=== PATIENT | male | born 1960 | race African-American/Black ===

== ENCOUNTER 2016-07-17 13:45 | Inpatient (IN) | payer MEDICAID, OTHER ==
[~2016-07-17] VITALS: Ht 167.6 cm; Wt 85.4 kg
[~2016-07-17 13:45] MED LIST: DIVA500T52 PO; MIRT15 PO; OMEP20 PO
[2016-07-17 15:14] LABS: BASOPHILS % (AUTO) 0.3 % (0.0-2.0); EOSINOPHILS % (AUTO) 0.8 % (1.0-6.0); HEMATOCRIT 41.5 % (41-53); LYMPHOCYTES % (AUTO) 18.5 % (22.0-44.0); MEAN CORPUSCULAR HEMOGLOBIN 26.9 pg (26.0-34.0); MEAN CORPUSCULAR HGB CONC 33.6 G/dL (31.0-37.0); MEAN CORPUSCULAR VOLUME 80 fL (80-100); MONOCYTES # (AUTO) 0.6 K/uL (0.1-1.0); MONOCYTES % (AUTO) 5.5 % (2.0-9.0); NEUTROPHILS % (AUTO) 74.9 % (40.0-70.0); PLATELET COUNT (AUTO) 282 K/uL (150-450); RED BLOOD CELL COUNT(AUTO) 5.18 MIL/uL (4.50-5.90); RED CELL DISTRIBUTION WIDTH 15.5 % (11.5-14.5); WHITE BLOOD COUNT (AUTO) 10.6 K/uL (4.5-11.0)
[2016-07-17 15:25] LABS: ANION GAP 5 mmol/L (8-16); CALCIUM, TOTAL 8.9 mg/dL (8.8-10.5); CARBON DIOXIDE 31 mmol/L (22-29); CHLORIDE 105 mmol/L (98-107); CREATININE 0.87 mg/dL (0.60-1.30); GLOMERULAR FILTR. RATE CALC > 60 mL/min (>60); SODIUM SERUM 141 mmol/L (136-145); UREA NITROGEN, BLOOD 9 mg/dL (7-18)
[2016-07-17 15:31] LABS: ALANINE AMINOTRANSFERASE 68 U/L (12-78); ALBUMIN 3.7 g/dL (3.4-5.0); ASPARTATE AMINOTRANSFERASE 22 U/L (15-37); BILIRUBIN,TOTAL 0.4 mg/dL (0.1-1.0); TOTAL PROTEIN, SERUM 7.3 g/dL (6.4-8.2)
[2016-07-17] MEDS ORDERED: MAGNESIUM HYDROXIDE SUSPENSION 30 ML UDCUP PO PRN (16:15)
[2016-07-17] MEDS ORDERED: ACETAMINOPHEN 325 MG TABLET PO PRN (16:15)
[2016-07-17] MEDS ORDERED: MAG HYDROX/AL HYDROX/SIMETH ES 30 ML SUSPENSION UDCUP PO PRN (16:15)
[2016-07-17] MEDS ORDERED: ZOLPIDEM TARTRATE 10 MG TABLET PO PRN (16:15)
[2016-07-18] MEDS ORDERED: IBUPROFEN 400 MG TABLET PO PRN (07:30)
[2016-07-18] MEDS ORDERED: ACETAMINOPHEN 325 MG TABLET PO PRN (07:30)
[2016-07-18 08:06] VITALS: BP 145/78
[2016-07-18] MEDS ORDERED: INFLUENZA VIRUS VACCINE QVS 2016-17 (3YR+)/PF 60 MCG/0.5 ML SYRINGE IM ONE (10:45)
[2016-07-18] MEDS: LORazepam 2 MG TABLET PO PRN (10:53)
[2016-07-18] MEDS: HALOPERIDOL 5 MG TABLET PO PRN (10:53)
[2016-07-18 16:15] VITALS: BP 142/74
[2016-07-19 06:25] LABS: HEMOGLOBIN A1C 5.6 % (4.5-6.2)
[2016-07-19] MEDS: OMEPRAZOLE 20 MG CAPSULE PO SCH (06:26)
[2016-07-19 06:32] LABS: THYROID STIMULATING HORMONE 1.78 uIU/mL (0.36-3.74)
[2016-07-19 07:14] LABS: CHOL/HDL RATIO 2.3 (4.2-7.3)
[2016-07-19] MEDS: OLANZapine 5 MG TABLET PO SCH ×3 (09:00→17:00)
[2016-07-19 16:24] VITALS: BP 131/86
[2016-07-20] MEDS: OMEPRAZOLE 20 MG CAPSULE PO SCH (06:34)
[2016-07-20] MEDS: OLANZapine 5 MG TABLET PO SCH ×2 (08:23→17:54)
[2016-07-20 08:31] LABS: APPEARANCE,URINE CLEAR (CLEAR); GLUCOSE, URINE (UA) NEGATIVE (NEGATIVE); KETONES,URINE NEGATIVE (NEGATIVE); LEUKOCYTE ESTERASE ,URINE NEGATIVE (NEGATIVE); OCCULT BLOOD,URINE NEGATIVE (NEGATIVE); PH,URINE 5.5 (5.0-8.0); PROTEIN,URINE NEGATIVE (NEGATIVE)
[2016-07-20 08:33] LABS: ADD UA MICROSCOPIC NO
[2016-07-20] MEDS: HALOPERIDOL 5 MG TABLET PO PRN (09:41)
[2016-07-20] MEDS: LORazepam 2 MG TABLET PO PRN (09:41)
[2016-07-20] MEDS: NYSTATIN 30 GM CREAM TP SCH (16:45)
[2016-07-21 01:48] VITALS: BP 129/89
[2016-07-21] MEDS: OMEPRAZOLE 20 MG CAPSULE PO SCH (06:21)
[2016-07-21 08:30] VITALS: BP 151/94
[2016-07-21] MEDS: OLANZapine 5 MG TABLET PO SCH (08:36)
[2016-07-21] MEDS: NYSTATIN 30 GM CREAM TP SCH (08:37)
[2016-07-21] MEDS ORDERED: OLAN5TAB2 PO (11:48)
[2016-07-21] MEDS ORDERED: NYST15CR2 TP (11:51)
== END 2016-07-21 14:48 | disposition home or self-care (01) | DRG 750 ==
LOC: EMS 13:46 → AHU 16:24 → 3EI 07-18 13:25
PROVIDERS: ADMIT Psychiatry & Neurology Psychiatry; ATTEND Psychiatry & Neurology Psychiatry
DX: F25.0 Schizoaffective disorder, bipolar type (principal); R45.851 Suicidal ideations; Z59.0 Homelessness; F14.10 Cocaine abuse, uncomplicated; F31.9 Bipolar disorder, unspecified; F41.9 Anxiety disorder, unspecified; F17.210 Nicotine dependence, cigarettes, uncomplicated; F15.10 Other stimulant abuse, uncomplicated; E78.5 Hyperlipidemia, unspecified; K21.9 Gastro-esophageal reflux disease without esophagitis; Z91.5 Personal history of self-harm; Z91.018 Allergy to other foods; Z79.899 Other long term (current) drug therapy; Z98.890 Other specified postprocedural states; Z71.6 Tobacco abuse counseling; Z88.8 Allergy status to other drugs, medicaments and biological substances; Z71.51 Drug abuse counseling and surveillance of drug abuser; Z28.21 Immunization not carried out because of patient refusal
CPT/HCPCS: 83036; 84443; 99285; G0480

== ENCOUNTER 2017-10-27 08:50 | Emergency (ER) | payer OTHER ==
[~2017-10-27] VITALS: Ht 165.1 cm; Wt 82.3 kg
[~2017-10-27 08:50] MED LIST changes: -DIVA500T52 PO; -MIRT15 PO; +NYST15CR2 TP; +OLAN5TAB2 PO
[2017-10-27 10:35] LABS: BASOPHILS % (AUTO) 0.8 % (0.0-2.0); EOSINOPHILS % (AUTO) 2.2 % (1.0-6.0); HEMATOCRIT 44.1 % (41-53); HEMOGLOBIN 15.6 g/dL (13.5-17.5); LYMPHOCYTES # (AUTO) 2.1 K/uL (1.0-4.8); LYMPHOCYTES % (AUTO) 27.4 % (22.0-44.0); MEAN CORPUSCULAR HEMOGLOBIN 27.5 pg (26.0-34.0); MEAN CORPUSCULAR HGB CONC 35.2 G/dL (31.0-37.0); MEAN CORPUSCULAR VOLUME 78 fL (80-100); MONOCYTES # (AUTO) 0.4 K/uL (0.1-1.0); MONOCYTES % (AUTO) 5.1 % (2.0-9.0); NEUTROPHILS # (AUTO) 4.8 K/uL (1.8-7.7); NEUTROPHILS % (AUTO) 64.5 % (40.0-70.0); PLATELET COUNT (AUTO) 331 K/uL (150-450); RED BLOOD CELL COUNT(AUTO) 5.66 MIL/uL (4.50-5.90); RED CELL DISTRIBUTION WIDTH 14.7 % (11.5-14.5)
[2017-10-27 10:44] LABS: ANION GAP 4 mmol/L (8-16); CARBON DIOXIDE 31 mmol/L (22-29); CHLORIDE 103 mmol/L (98-107); GLOMERULAR FILTR. RATE CALC > 60 mL/min (>60); GLUCOSE,RANDOM 90 mg/dL (70-110); SODIUM SERUM 138 mmol/L (136-145); UREA NITROGEN, BLOOD 12 mg/dL (7-18)
[2017-10-27 10:50] LABS: ALANINE AMINOTRANSFERASE 24 U/L (12-78); ALBUMIN 4.1 g/dL (3.4-5.0); ALKALINE PHOSPHATASE 115 U/L (46-116); ASPARTATE AMINOTRANSFERASE 17 U/L (15-37); BILIRUBIN,TOTAL 1.1 mg/dL (0.1-1.0)
[2017-10-27 10:56] LABS: AMPHET/METH SCREEN,URINE POSITIVE (NEGATIVE); BARBITURATE SCREEN, URINE NEGATIVE (NEGATIVE); BENZODIAZEPINES SCREEN,URINE NEGATIVE (NEGATIVE); CANNABINOID SCREEN,URINE NEGATIVE (NEGATIVE); COCAINE SCREEN,URINE NEGATIVE (NEGATIVE); METHADONE SCREEN, URINE NEGATIVE (NEGATIVE); OPIATE SCREEN,URINE NEGATIVE (NEGATIVE)
[2017-10-27 11:03] LABS: PHENCYCLIDINE SCREEN,URINE NEGATIVE (NEGATIVE)
[2017-10-27] MEDS: ACETAMINOPHEN 500 MG TABLET PO ONE ×2 (11:57→12:32)
[2017-10-27 14:43] VITALS: BP 123/64
== END 2017-10-27 14:55 ==
LOC: EMS 08:51
DX: R45.851 Suicidal ideations (principal); F15.10 Other stimulant abuse, uncomplicated; R03.0 Elevated blood-pressure reading, without diagnosis of hypertension; F31.9 Bipolar disorder, unspecified; F20.9 Schizophrenia, unspecified; F41.9 Anxiety disorder, unspecified; F17.210 Nicotine dependence, cigarettes, uncomplicated; F14.90 Cocaine use, unspecified, uncomplicated; Z59.0 Homelessness
CPT/HCPCS: 36415; 80053; 80307; 85025; 99285; G0480

== ENCOUNTER 2017-11-14 09:17 | Emergency (ER) | payer OTHER ==
[~2017-11-14] VITALS: Ht 165.1 cm; Wt 85.5 kg
[2017-11-14] MEDS ORDERED: ACETAMINOPHEN 500 MG TABLET PO ONE (10:00)
[2017-11-14 10:11] LABS: BASOPHILS % (AUTO) 0.9 % (0.0-2.0); EOSINOPHILS % (AUTO) 1.5 % (1.0-6.0); HEMATOCRIT 39.5 % (41-53); HEMOGLOBIN 13.9 g/dL (13.5-17.5); LYMPHOCYTES # (AUTO) 2.7 K/uL (1.0-4.8); LYMPHOCYTES % (AUTO) 31.6 % (22.0-44.0); MEAN CORPUSCULAR HEMOGLOBIN 27.5 pg (26.0-34.0); MEAN CORPUSCULAR HGB CONC 35.1 G/dL (31.0-37.0); MEAN CORPUSCULAR VOLUME 78 fL (80-100); MONOCYTES # (AUTO) 0.6 K/uL (0.1-1.0); MONOCYTES % (AUTO) 7.5 % (2.0-9.0); NEUTROPHILS # (AUTO) 4.9 K/uL (1.8-7.7); NEUTROPHILS % (AUTO) 58.5 % (40.0-70.0); PLATELET COUNT (AUTO) 345 K/uL (150-450); RED BLOOD CELL COUNT(AUTO) 5.04 MIL/uL (4.50-5.90); RED CELL DISTRIBUTION WIDTH 14.6 % (11.5-14.5)
[2017-11-14 10:21] LABS: ANION GAP 5 mmol/L (8-16); CALCIUM, TOTAL 8.5 mg/dL (8.8-10.5); CARBON DIOXIDE 33 mmol/L (22-29); CHLORIDE 104 mmol/L (98-107); CREATININE 1.01 mg/dL (0.60-1.30); GLOMERULAR FILTR. RATE CALC > 60 mL/min (>60); GLUCOSE,RANDOM 87 mg/dL (70-110); POTASSIUM 3.9 mmol/L (3.5-5.1); SODIUM SERUM 142 mmol/L (136-145); UREA NITROGEN, BLOOD 8 mg/dL (7-18)
[2017-11-14 10:27] LABS: ALANINE AMINOTRANSFERASE 32 U/L (12-78); ALBUMIN 3.8 g/dL (3.4-5.0); ALKALINE PHOSPHATASE 119 U/L (46-116); ASPARTATE AMINOTRANSFERASE 20 U/L (15-37); BILIRUBIN,TOTAL 0.5 mg/dL (0.1-1.0); TOTAL PROTEIN, SERUM 7.4 g/dL (6.4-8.2)
[2017-11-14 12:24] LABS: AMPHET/METH SCREEN,URINE POSITIVE (NEGATIVE); BARBITURATE SCREEN, URINE NEGATIVE (NEGATIVE); BENZODIAZEPINES SCREEN,URINE NEGATIVE (NEGATIVE); CANNABINOID SCREEN,URINE NEGATIVE (NEGATIVE); COCAINE SCREEN,URINE NEGATIVE (NEGATIVE); METHADONE SCREEN, URINE NEGATIVE (NEGATIVE); OPIATE SCREEN,URINE NEGATIVE (NEGATIVE)
[2017-11-14 12:25] LABS: PHENCYCLIDINE SCREEN,URINE NEGATIVE (NEGATIVE)
[2017-11-14 12:26] LABS: APPEARANCE,URINE CLEAR (CLEAR); BILIRUBIN,URINE NEGATIVE (NEGATIVE); GLUCOSE, URINE (UA) NEGATIVE (NEGATIVE); KETONES,URINE NEGATIVE (NEGATIVE); LEUKOCYTE ESTERASE ,URINE NEGATIVE (NEGATIVE); NITRATE,URINE NEGATIVE (NEGATIVE); OCCULT BLOOD,URINE NEGATIVE (NEGATIVE); PH,URINE 6.5 (5.0-8.0); PROTEIN,URINE NEGATIVE (NEGATIVE); UROBILINOGEN,URINE 0.2 mg/dL (<=1.0)
[2017-11-14] MEDS ORDERED: LORazepam 2 MG/ML VIAL IM ONE (12:45)
[2017-11-14] MEDS ORDERED: DiphenhydrAMINE HCL 50 MG/ML VIAL IM ONE (12:45)
[2017-11-14] MEDS ORDERED: HALOPERIDOL LACTATE 5 MG/ML VIAL IM ONE (12:45)
[2017-11-14 18:30] VITALS: BP 135/80
== END 2017-11-14 19:37 | disposition short-term general hospital (02) ==
LOC: EMS 09:19
DX: F31.9 Bipolar disorder, unspecified (principal); F29 Unspecified psychosis not due to a substance or known physiological condition; F20.9 Schizophrenia, unspecified; F15.10 Other stimulant abuse, uncomplicated; F14.90 Cocaine use, unspecified, uncomplicated; F17.210 Nicotine dependence, cigarettes, uncomplicated
CPT/HCPCS: 36415; 80053; 80307; 81003; 85025; 96372; 99285; G0480; J1200; J1630; J2060

== ENCOUNTER 2017-12-14 19:47 | Emergency (ER) | payer MEDICAID, OTHER ==
[~2017-12-14] VITALS: Ht 165.1 cm; Wt 81.0 kg
[~2017-12-14 19:47] MED LIST changes: +FLUO-191 PO; -NYST15CR2 TP; -OMEP20 PO
[2017-12-14 21:31] LABS: BASOPHILS % (AUTO) 1.3 % (0.0-2.0); EOSINOPHILS % (AUTO) 2.1 % (1.0-6.0); HEMATOCRIT 39.5 % (41-53); HEMOGLOBIN 13.8 g/dL (13.5-17.5); LYMPHOCYTES # (AUTO) 3.3 K/uL (1.0-4.8); LYMPHOCYTES % (AUTO) 27.9 % (22.0-44.0); MEAN CORPUSCULAR HEMOGLOBIN 27.4 pg (26.0-34.0); MEAN CORPUSCULAR VOLUME 78 fL (80-100); MONOCYTES # (AUTO) 0.9 K/uL (0.1-1.0); MONOCYTES % (AUTO) 7.4 % (2.0-9.0); NEUTROPHILS # (AUTO) 7.2 K/uL (1.8-7.7); NEUTROPHILS % (AUTO) 61.3 % (40.0-70.0); PLATELET COUNT (AUTO) 327 K/uL (150-450); RED BLOOD CELL COUNT(AUTO) 5.06 MIL/uL (4.50-5.90); RED CELL DISTRIBUTION WIDTH 15.3 % (11.5-14.5)
[2017-12-14 21:48] LABS: ANION GAP 6 mmol/L (8-16); CALCIUM, TOTAL 8.5 mg/dL (8.8-10.5); CARBON DIOXIDE 30 mmol/L (22-29); CHLORIDE 103 mmol/L (98-107); CREATININE 1.25 mg/dL (0.60-1.30); GLOMERULAR FILTR. RATE CALC > 60 mL/min (>60); GLUCOSE,RANDOM 94 mg/dL (70-110); POTASSIUM 3.8 mmol/L (3.5-5.1); SODIUM SERUM 139 mmol/L (136-145); UREA NITROGEN, BLOOD 13 mg/dL (7-18)
[2017-12-14 21:56] LABS: ALANINE AMINOTRANSFERASE 55 U/L (12-78); ALBUMIN 3.8 g/dL (3.4-5.0); ALKALINE PHOSPHATASE 140 U/L (46-116); ASPARTATE AMINOTRANSFERASE 24 U/L (15-37); BILIRUBIN,TOTAL 0.6 mg/dL (0.1-1.0); TOTAL PROTEIN, SERUM 7.6 g/dL (6.4-8.2)
[2017-12-15] MEDS ORDERED: LORazepam 2 MG TABLET PO PRN (01:30)
[2017-12-15] MEDS ORDERED: ACETAMINOPHEN 325 MG TABLET PO PRN (01:30)
[2017-12-15] MEDS ORDERED: ZOLPIDEM TARTRATE 10 MG TABLET PO PRN (01:30)
[2017-12-15] MEDS ORDERED: MAGNESIUM HYDROXIDE SUSPENSION 30 ML UDCUP PO PRN (01:30)
[2017-12-15] MEDS ORDERED: MAG HYDROX/AL HYDROX/SIMETH ES 30 ML SUSPENSION UDCUP PO PRN (01:30)
[2017-12-15] MEDS ORDERED: HALOPERIDOL 5 MG TABLET PO PRN (01:30)
[2017-12-15 19:10] LABS: AMPHET/METH SCREEN,URINE POSITIVE (NEGATIVE); BARBITURATE SCREEN, URINE NEGATIVE (NEGATIVE); BENZODIAZEPINES SCREEN,URINE NEGATIVE (NEGATIVE); CANNABINOID SCREEN,URINE NEGATIVE (NEGATIVE); COCAINE SCREEN,URINE NEGATIVE (NEGATIVE); METHADONE SCREEN, URINE NEGATIVE (NEGATIVE); OPIATE SCREEN,URINE NEGATIVE (NEGATIVE)
[2017-12-15 19:12] LABS: PHENCYCLIDINE SCREEN,URINE NEGATIVE (NEGATIVE)
[2017-12-15 21:00] VITALS: BP 121/89
== END 2017-12-15 21:44 | disposition home or self-care (01) ==
LOC: EMS 19:48
DX: F31.9 Bipolar disorder, unspecified (principal); F29 Unspecified psychosis not due to a substance or known physiological condition; F41.9 Anxiety disorder, unspecified; F20.9 Schizophrenia, unspecified; F17.210 Nicotine dependence, cigarettes, uncomplicated; F12.90 Cannabis use, unspecified, uncomplicated; Z91.018 Allergy to other foods
CPT/HCPCS: 36415; 80053; 80307; 85025; 99284; G0480

== ENCOUNTER 2018-01-08 05:29 | Emergency (ER) | payer OTHER ==
[~2018-01-08] VITALS: Ht 165.1 cm; Wt 81.0 kg
[2018-01-08] MEDS ORDERED: POVIDONE-IODINE 10% 15 ML SOLUTION UD TP ONE (06:30)
[2018-01-08 07:02] VITALS: BP 126/84
== END 2018-01-08 07:05 | disposition home or self-care (01) ==
LOC: EMS 05:31
DX: L84 Corns and callosities (principal); M79.671 Pain in right foot; M79.672 Pain in left foot; F17.210 Nicotine dependence, cigarettes, uncomplicated; F12.90 Cannabis use, unspecified, uncomplicated; Z91.018 Allergy to other foods
CPT/HCPCS: 99283

== ENCOUNTER 2018-03-01 20:47 | Inpatient (IN) | payer MEDICAID, OTHER ==
[~2018-03-01] VITALS: Ht 165.1 cm; Wt 77.6 kg
[2018-03-01 21:21] LABS: EOSINOPHILS % (AUTO) 1.6 % (1.0-6.0); HEMATOCRIT 39.9 % (41-53); HEMOGLOBIN 13.7 g/dL (13.5-17.5); LYMPHOCYTES # (AUTO) 2.9 K/uL (1.0-4.8); LYMPHOCYTES % (AUTO) 27.7 % (22.0-44.0); MEAN CORPUSCULAR HGB CONC 34.2 G/dL (31.0-37.0); MEAN CORPUSCULAR VOLUME 79 fL (80-100); MONOCYTES # (AUTO) 0.5 K/uL (0.1-1.0); MONOCYTES % (AUTO) 4.4 % (2.0-9.0); NEUTROPHILS # (AUTO) 6.8 K/uL (1.8-7.7); NEUTROPHILS % (AUTO) 65.3 % (40.0-70.0); PLATELET COUNT (AUTO) 306 K/uL (150-450); RED BLOOD CELL COUNT(AUTO) 5.07 MIL/uL (4.50-5.90); RED CELL DISTRIBUTION WIDTH 14.4 % (11.5-14.5)
[2018-03-01 21:30] LABS: ANION GAP 5 mmol/L (8-16); CARBON DIOXIDE 30 mmol/L (22-29); CHLORIDE 105 mmol/L (98-107); CREATININE 1.11 mg/dL (0.60-1.30); GLOMERULAR FILTR. RATE CALC > 60 mL/min (>60); GLUCOSE,RANDOM 101 mg/dL (70-110); POTASSIUM 4.3 mmol/L (3.5-5.1); SODIUM SERUM 140 mmol/L (136-145); UREA NITROGEN, BLOOD 12 mg/dL (7-18)
[2018-03-01 21:37] LABS: ALANINE AMINOTRANSFERASE 17 U/L (12-78); ALBUMIN 3.2 g/dL (3.4-5.0); ALKALINE PHOSPHATASE 102 U/L (46-116); ASPARTATE AMINOTRANSFERASE 29 U/L (15-37); BILIRUBIN,TOTAL 0.3 mg/dL (0.1-1.0); TOTAL PROTEIN, SERUM 6.6 g/dL (6.4-8.2)
[2018-03-02 04:50] VITALS: BP 116/70
[2018-03-02 08:36] VITALS: BP 117/69
[2018-03-02 09:18] LABS: HEMOGLOBIN A1C 5.6 % (4.5-6.2)
[2018-03-02 09:39] LABS: FREE T4 (FREE THYROXINE) 0.89 ng/dL (0.76-1.46); THYROID STIMULATING HORMONE 1.18 uIU/mL (0.36-3.74)
[2018-03-02] MEDS ORDERED: PROMETHAZINE HCL 25 MG TABLET PO PRN (13:00)
[2018-03-02] MEDS ORDERED: MAGNESIUM HYDROXIDE SUSPENSION 30 ML UDCUP PO PRN (13:00)
[2018-03-02] MEDS ORDERED: GuaiFENesin/D-METHORPHAN [SUGAR-FREE] 200-20MG/10 ML SYRUP UDCUP PO PRN (13:00)
[2018-03-02] MEDS ORDERED: MAG HYDROX/AL HYDROX/SIMETH ES 30 ML SUSPENSION UDCUP PO PRN (13:00)
[2018-03-02] MEDS ORDERED: TUBERCULIN, PURIFIED PROTEIN DERIVATIVE 5 TU/0.1 ML SYG ID ONE (13:00)
[2018-03-02] MEDS ORDERED: ACETAMINOPHEN 325 MG TABLET PO PRN (13:00)
[2018-03-02] MEDS ORDERED: LOPERAMIDE HCL 2 MG CAPSULE PO PRN (13:00)
[2018-03-02] MEDS ORDERED: HydrOXYzine PAMOATE 50 MG CAPSULE PO PRN (13:00)
[2018-03-02 16:20] VITALS: BP 112/84
[2018-03-02] MEDS: THIAMINE HCL 100 MG TABLET PO SCH (17:39)
[2018-03-02] MEDS: LORazepam 2 MG TABLET PO PRN (18:04)
[2018-03-03 08:43] VITALS: BP 109/61
[2018-03-03] MEDS ORDERED: OLANZapine 5 MG RAPDIS TABLET PO SCH (09:00)
[2018-03-03] MEDS ORDERED: OLANZapine 10 MG RAPDIS TABLET PO SCH (09:00)
[2018-03-03] MEDS: FOLIC ACID 1 MG TABLET PO SCH (09:49)
[2018-03-03] MEDS: FLUoxetine HCL 20 MG CAPSULE PO SCH (09:49)
[2018-03-03] MEDS: MULTIVITAMINS WITH MINERALS, THERAPEUTIC TABLET PO SCH (09:49)
[2018-03-03] MEDS: NALTREXONE HCL 50 MG TABLET PO SCH (09:50)
[2018-03-03] MEDS: THIAMINE HCL 100 MG TABLET PO SCH ×2 (09:50→16:56)
[2018-03-03] MEDS: OLANZapine 10 MG RAPDIS TABLET PO SCH (20:39)
[2018-03-04 05:38] VITALS: BP 121/68
[2018-03-04] MEDS: NALTREXONE HCL 50 MG TABLET PO SCH ×2 (09:00→09:08)
[2018-03-04] MEDS: THIAMINE HCL 100 MG TABLET PO SCH ×3 (09:00→16:25)
[2018-03-04] MEDS: MULTIVITAMINS WITH MINERALS, THERAPEUTIC TABLET PO SCH ×2 (09:00→09:08)
[2018-03-04] MEDS: FLUoxetine HCL 20 MG CAPSULE PO SCH ×2 (09:00→09:08)
[2018-03-04] MEDS: FOLIC ACID 1 MG TABLET PO SCH ×2 (09:00→09:08)
[2018-03-04 16:15] VITALS: BP 120/74
[2018-03-04] MEDS ORDERED: LORazepam 2 MG/ML VIAL IM ONE (17:30)
[2018-03-04] MEDS ORDERED: HALOPERIDOL LACTATE 5 MG/ML VIAL IM ONE (17:30)
[2018-03-04] MEDS ORDERED: DiphenhydrAMINE HCL 50 MG/ML VIAL IM ONE (17:30)
[2018-03-04] MEDS: OLANZapine 10 MG RAPDIS TABLET PO SCH (21:00)
[2018-03-05 06:39] VITALS: BP 112/65
[2018-03-05 08:03] VITALS: BP 114/62
[2018-03-05] MEDS: NALTREXONE HCL 50 MG TABLET PO SCH (09:00)
[2018-03-05] MEDS: FLUoxetine HCL 20 MG CAPSULE PO SCH (09:00)
[2018-03-05] MEDS: MULTIVITAMINS WITH MINERALS, THERAPEUTIC TABLET PO SCH (09:00)
[2018-03-05] MEDS: FOLIC ACID 1 MG TABLET PO SCH (09:00)
[2018-03-05] MEDS: THIAMINE HCL 100 MG TABLET PO SCH ×2 (09:00→17:00)
[2018-03-05] MEDS: DIVALPROEX SODIUM 500 MG ER TABLET PO SCH (20:17)
[2018-03-05] MEDS: OLANZapine 10 MG RAPDIS TABLET PO SCH (20:17)
[2018-03-06] MEDS: FOLIC ACID 1 MG TABLET PO SCH (08:16)
[2018-03-06] MEDS: THIAMINE HCL 100 MG TABLET PO SCH ×2 (08:16→16:34)
[2018-03-06] MEDS: NALTREXONE HCL 50 MG TABLET PO SCH (08:16)
[2018-03-06] MEDS: MULTIVITAMINS WITH MINERALS, THERAPEUTIC TABLET PO SCH (08:16)
[2018-03-06 16:00] VITALS: BP 112/70
[2018-03-06] MEDS: LORazepam 2 MG TABLET PO PRN (16:34)
[2018-03-06] MEDS: NICOTINE 21 MG/24 HOUR PATCH TD SCH (16:54)
[2018-03-06] MEDS: OLANZapine 10 MG RAPDIS TABLET PO SCH (20:29)
[2018-03-06] MEDS: DIVALPROEX SODIUM 500 MG ER TABLET PO SCH (20:29)
[2018-03-06] MEDS: ZOLPIDEM TARTRATE 10 MG TABLET PO PRN (20:30)
[2018-03-07] MEDS: NALTREXONE HCL 50 MG TABLET PO SCH (08:20)
[2018-03-07] MEDS: MULTIVITAMINS WITH MINERALS, THERAPEUTIC TABLET PO SCH (08:20)
[2018-03-07] MEDS: FOLIC ACID 1 MG TABLET PO SCH (08:20)
[2018-03-07] MEDS: THIAMINE HCL 100 MG TABLET PO SCH ×2 (08:20→16:22)
[2018-03-07] MEDS: NICOTINE 21 MG/24 HOUR PATCH TD SCH (08:21)
[2018-03-07] MEDS: LORazepam 2 MG TABLET PO PRN (16:22)
[2018-03-07] MEDS: OLANZapine 5 MG RAPDIS TABLET PO PRN (16:36)
[2018-03-07 17:04] VITALS: BP 124/79
[2018-03-07] MEDS: ZOLPIDEM TARTRATE 10 MG TABLET PO PRN (20:31)
[2018-03-07] MEDS: DIVALPROEX SODIUM 500 MG ER TABLET PO SCH (20:31)
[2018-03-07] MEDS: OLANZapine 10 MG RAPDIS TABLET PO SCH (20:31)
[2018-03-08] MEDS: FOLIC ACID 1 MG TABLET PO SCH (08:34)
[2018-03-08] MEDS: NICOTINE 21 MG/24 HOUR PATCH TD SCH (08:35)
[2018-03-08] MEDS: THIAMINE HCL 100 MG TABLET PO SCH ×2 (08:35→16:34)
[2018-03-08] MEDS: MULTIVITAMINS WITH MINERALS, THERAPEUTIC TABLET PO SCH (08:35)
[2018-03-08] MEDS: NALTREXONE HCL 50 MG TABLET PO SCH (08:35)
[2018-03-08 16:00] VITALS: BP 122/88
[2018-03-08] MEDS: OLANZapine 5 MG RAPDIS TABLET PO PRN (16:34)
[2018-03-08] MEDS: LORazepam 2 MG TABLET PO PRN (16:34)
[2018-03-08] MEDS: DIVALPROEX SODIUM 500 MG ER TABLET PO SCH ×2 (20:50→21:13)
[2018-03-08] MEDS: OLANZapine 10 MG RAPDIS TABLET PO SCH ×2 (20:50→21:13)
[2018-03-09 08:05] VITALS: BP 119/62
[2018-03-09] MEDS: NICOTINE 21 MG/24 HOUR PATCH TD SCH (09:00)
[2018-03-09] MEDS: MULTIVITAMINS WITH MINERALS, THERAPEUTIC TABLET PO SCH (09:00)
[2018-03-09] MEDS: NALTREXONE HCL 50 MG TABLET PO SCH (09:00)
[2018-03-09] MEDS: CLOTRIMAZOLE 1% 10 ML SOLUTION TP SCH ×2 (09:00→16:38)
[2018-03-09] MEDS: THIAMINE HCL 100 MG TABLET PO SCH ×2 (09:00→16:35)
[2018-03-09] MEDS: FOLIC ACID 1 MG TABLET PO SCH (09:00)
[2018-03-09 16:04] VITALS: BP 129/76
[2018-03-09] MEDS: LORazepam 2 MG TABLET PO PRN (16:36)
[2018-03-09] MEDS: OLANZapine 5 MG RAPDIS TABLET PO PRN (16:37)
[2018-03-10 03:12] VITALS: BP 123/68
[2018-03-10 08:04] VITALS: BP 132/66
[2018-03-10] MEDS: NICOTINE 21 MG/24 HOUR PATCH TD SCH (08:29)
[2018-03-10] MEDS: NALTREXONE HCL 50 MG TABLET PO SCH (08:29)
[2018-03-10] MEDS: FOLIC ACID 1 MG TABLET PO SCH (08:29)
[2018-03-10] MEDS: MULTIVITAMINS WITH MINERALS, THERAPEUTIC TABLET PO SCH (08:29)
[2018-03-10] MEDS: THIAMINE HCL 100 MG TABLET PO SCH (08:29)
[2018-03-10] MEDS: CLOTRIMAZOLE 1% 10 ML SOLUTION TP SCH (08:30)
[2018-03-10] MEDS ORDERED: OLAN10TA6 PO (11:41)
[2018-03-10] MEDS ORDERED: NALT50TA6 PO (11:41)
[2018-03-10] MEDS ORDERED: DIVA500T52 PO (11:41)
== END 2018-03-10 12:10 | disposition home or self-care (01) | DRG 750 ==
LOC: EMS 20:51 → B2S 03-02 02:30 → B3A 03-04 17:35
PROVIDERS: ADMIT Psychiatry & Neurology Psychiatry; ATTEND Psychiatry & Neurology Psychiatry
DX: F20.0 Paranoid schizophrenia (principal); R45.851 Suicidal ideations; Z59.0 Homelessness; B35.3 Tinea pedis; F12.90 Cannabis use, unspecified, uncomplicated; F15.10 Other stimulant abuse, uncomplicated; F17.210 Nicotine dependence, cigarettes, uncomplicated; J44.9 Chronic obstructive pulmonary disease, unspecified; K21.9 Gastro-esophageal reflux disease without esophagitis; F31.9 Bipolar disorder, unspecified; Z91.14 Patient's other noncompliance with medication regimen; Z91.018 Allergy to other foods; Z79.899 Other long term (current) drug therapy; Z72.89 Other problems related to lifestyle; Z71.41 Alcohol abuse counseling and surveillance of alcoholic; Z71.6 Tobacco abuse counseling; Z71.51 Drug abuse counseling and surveillance of drug abuser
CPT/HCPCS: 83036; 84439; 84443; 99285; G0480; J1200; J1630; J2060

== ENCOUNTER 2018-03-19 19:53 | Emergency (ER) | payer MEDICAID, OTHER ==
[~2018-03-19] VITALS: Ht 162.6 cm; Wt 81.8 kg
[~2018-03-19 19:53] MED LIST changes: +DIVA500T52 PO; -FLUO-191 PO; +NALT50TA PO; +NALT50TA6 PO; +OLAN10TA22 PO; +OLAN10TA6 PO; -OLAN5TAB2 PO
[2018-03-19 22:33] VITALS: BP 148/88
== END 2018-03-19 22:34 | disposition home or self-care (01) ==
LOC: EMS 19:54
DX: M21.42 Flat foot [pes planus] (acquired), left foot (principal); M21.41 Flat foot [pes planus] (acquired), right foot; B35.3 Tinea pedis; M72.2 Plantar fascial fibromatosis; F41.9 Anxiety disorder, unspecified; F31.9 Bipolar disorder, unspecified; F20.9 Schizophrenia, unspecified; F17.210 Nicotine dependence, cigarettes, uncomplicated; Z91.018 Allergy to other foods
CPT/HCPCS: 99283

== ENCOUNTER 2018-03-20 07:49 | Inpatient (IN) | payer MEDICAID, OTHER ==
[~2018-03-20] VITALS: Ht 165.1 cm; Wt 76.7 kg
[~2018-03-20 07:49] MED LIST changes: -NALT50TA PO; -OLAN10TA22 PO
[2018-03-20 08:17] LABS: BASOPHILS % (AUTO) 0.9 % (0.0-2.0); EOSINOPHILS % (AUTO) 0.9 % (1.0-6.0); HEMATOCRIT 40.8 % (41-53); HEMOGLOBIN 14.3 g/dL (13.5-17.5); LYMPHOCYTES # (AUTO) 2.4 K/uL (1.0-4.8); LYMPHOCYTES % (AUTO) 23.3 % (22.0-44.0); MEAN CORPUSCULAR HEMOGLOBIN 27.1 pg (26.0-34.0); MEAN CORPUSCULAR HGB CONC 35.1 G/dL (31.0-37.0); MEAN CORPUSCULAR VOLUME 77 fL (80-100); MONOCYTES # (AUTO) 0.8 K/uL (0.1-1.0); MONOCYTES % (AUTO) 7.7 % (2.0-9.0); NEUTROPHILS # (AUTO) 6.9 K/uL (1.8-7.7); NEUTROPHILS % (AUTO) 67.2 % (40.0-70.0); PLATELET COUNT (AUTO) 313 K/uL (150-450); RED BLOOD CELL COUNT(AUTO) 5.28 MIL/uL (4.50-5.90); RED CELL DISTRIBUTION WIDTH 14.5 % (11.5-14.5)
[2018-03-20 08:29] LABS: ANION GAP 8 mmol/L (8-16); CALCIUM, TOTAL 9.3 mg/dL (8.8-10.5); CARBON DIOXIDE 30 mmol/L (22-29); CHLORIDE 103 mmol/L (98-107); CREATININE 1.15 mg/dL (0.60-1.30); GLOMERULAR FILTR. RATE CALC > 60 mL/min (>60); GLUCOSE,RANDOM 101 mg/dL (70-110); SODIUM SERUM 141 mmol/L (136-145); UREA NITROGEN, BLOOD 16 mg/dL (7-18)
[2018-03-20] MEDS ORDERED: OLANZapine 5 MG RAPDIS TABLET PO PRN (08:30)
[2018-03-20] MEDS ORDERED: LORazepam 2 MG TABLET PO PRN (08:30)
[2018-03-20] MEDS ORDERED: ZOLPIDEM TARTRATE 10 MG TABLET PO PRN (08:30)
[2018-03-20 08:35] LABS: ALANINE AMINOTRANSFERASE 30 U/L (12-78); ALBUMIN 3.9 g/dL (3.4-5.0); ALKALINE PHOSPHATASE 106 U/L (46-116); ASPARTATE AMINOTRANSFERASE 34 U/L (15-37); BILIRUBIN,TOTAL 0.8 mg/dL (0.1-1.0); TOTAL PROTEIN, SERUM 7.7 g/dL (6.4-8.2); VALPROIC ACID 25 mcg/mL (50-100)
[2018-03-20 13:52] VITALS: BP 145/94
[2018-03-20] MEDS: NALTREXONE HCL 50 MG TABLET PO SCH (14:06)
[2018-03-20] MEDS: NICOTINE 21 MG/24 HOUR PATCH TD SCH (14:59)
[2018-03-20 16:28] VITALS: BP 115/75
[2018-03-20 16:30] VITALS: BP 112/75
[2018-03-20] MEDS: TERBINAFINE HCL 1% 30 GM CREAM TP SCH (16:45)
[2018-03-20] MEDS: DIVALPROEX SODIUM 500 MG ER TABLET PO SCH (20:26)
[2018-03-20] MEDS: OLANZapine 10 MG RAPDIS TABLET PO SCH (20:26)
[2018-03-21 00:40] VITALS: BP 135/83
[2018-03-21] MEDS ORDERED: MAGNESIUM HYDROXIDE SUSPENSION 30 ML UDCUP PO PRN (07:00)
[2018-03-21] MEDS ORDERED: IBUPROFEN 600 MG TABLET PO PRN (07:00)
[2018-03-21] MEDS ORDERED: ALBUTEROL SULFATE HFA 90 MCG/PUFF 8 GM INHALER IH PRN (07:00)
[2018-03-21] MEDS ORDERED: ACETAMINOPHEN 325 MG TABLET PO PRN (07:00)
[2018-03-21] MEDS ORDERED: CloNIDine HCL 0.1 MG TABLET PO PRN (07:00)
[2018-03-21] MEDS ORDERED: BACITRACIN 28.4 GM OINTMENT TP PRN (07:00)
[2018-03-21] MEDS ORDERED: PETROLATUM,WHITE 71 GM JELLY TP PRN (07:00)
[2018-03-21] MEDS ORDERED: ONDANSETRON HCL 4 MG TABLET PO PRN (07:00)
[2018-03-21] MEDS ORDERED: LOPERAMIDE HCL 2 MG CAPSULE PO PRN (07:00)
[2018-03-21] MEDS ORDERED: BENZOCAINE/MENTHOL LOZENGE MM PRN (07:00)
[2018-03-21] MEDS ORDERED: MAG HYDROX/AL HYDROX/SIMETH ES 30 ML SUSPENSION UDCUP PO PRN (07:00)
[2018-03-21 08:01] LABS: CHOL/HDL RATIO 2.7 (4.2-7.3)
[2018-03-21 08:10] VITALS: BP 128/76
[2018-03-21] MEDS: NALTREXONE HCL 50 MG TABLET PO SCH (09:18)
[2018-03-21] MEDS: OMEPRAZOLE 20 MG CAPSULE PO SCH (09:18)
[2018-03-21] MEDS: DOCUSATE SODIUM 100 MG CAPSULE PO SCH (09:18)
[2018-03-21] MEDS: NICOTINE 21 MG/24 HOUR PATCH TD SCH (09:19)
[2018-03-21] MEDS: TERBINAFINE HCL 1% 30 GM CREAM TP SCH ×2 (09:19→17:28)
[2018-03-21 16:00] VITALS: BP 132/80
[2018-03-21 16:10] VITALS: BP 132/80
[2018-03-21] MEDS: DIVALPROEX SODIUM 500 MG ER TABLET PO SCH (20:55)
[2018-03-21] MEDS: OLANZapine 10 MG RAPDIS TABLET PO SCH (20:55)
[2018-03-22 08:17] VITALS: BP 126/78
[2018-03-22] MEDS: NICOTINE 21 MG/24 HOUR PATCH TD SCH (09:00)
[2018-03-22] MEDS: NALTREXONE HCL 50 MG TABLET PO SCH (09:00)
[2018-03-22] MEDS: OMEPRAZOLE 20 MG CAPSULE PO SCH (09:00)
[2018-03-22] MEDS: TERBINAFINE HCL 1% 30 GM CREAM TP SCH ×2 (09:00→16:16)
[2018-03-22] MEDS: DOCUSATE SODIUM 100 MG CAPSULE PO SCH (09:00)
[2018-03-22] MEDS ORDERED: HydrOXYzine PAMOATE 50 MG CAPSULE PO PRN (11:45)
[2018-03-22] MEDS ORDERED: GuaiFENesin/D-METHORPHAN [SUGAR-FREE] 200-20MG/10 ML SYRUP UDCUP PO PRN (11:45)
[2018-03-22] MEDS: THIAMINE HCL 100 MG TABLET PO SCH (16:16)
[2018-03-22 16:30] VITALS: BP 124/82
[2018-03-22] MEDS: OLANZapine 10 MG RAPDIS TABLET PO SCH (20:39)
[2018-03-22] MEDS: DIVALPROEX SODIUM 500 MG ER TABLET PO SCH (20:39)
[2018-03-23 01:01] VITALS: BP 133/82
[2018-03-23] MEDS: NALTREXONE HCL 50 MG TABLET PO SCH (08:46)
[2018-03-23] MEDS: OMEPRAZOLE 20 MG CAPSULE PO SCH (08:46)
[2018-03-23] MEDS: DOCUSATE SODIUM 100 MG CAPSULE PO SCH (08:46)
[2018-03-23] MEDS: FOLIC ACID 1 MG TABLET PO SCH (08:46)
[2018-03-23] MEDS: TERBINAFINE HCL 1% 30 GM CREAM TP SCH ×2 (08:47→16:31)
[2018-03-23] MEDS: NICOTINE 21 MG/24 HOUR PATCH TD SCH (08:47)
[2018-03-23] MEDS: THIAMINE HCL 100 MG TABLET PO SCH ×2 (08:47→16:30)
[2018-03-23] MEDS: MULTIVITAMINS WITH MINERALS, THERAPEUTIC TABLET PO SCH (08:47)
[2018-03-23] MEDS: OLANZapine 10 MG RAPDIS TABLET PO SCH (20:08)
[2018-03-23] MEDS: DIVALPROEX SODIUM 500 MG ER TABLET PO SCH (20:08)
[2018-03-24] MEDS: FOLIC ACID 1 MG TABLET PO SCH (09:00)
[2018-03-24] MEDS: NALTREXONE HCL 50 MG TABLET PO SCH (09:00)
[2018-03-24] MEDS: MULTIVITAMINS WITH MINERALS, THERAPEUTIC TABLET PO SCH (09:00)
[2018-03-24] MEDS: NICOTINE 21 MG/24 HOUR PATCH TD SCH (09:00)
[2018-03-24] MEDS: THIAMINE HCL 100 MG TABLET PO SCH ×2 (09:00→16:52)
[2018-03-24] MEDS: OMEPRAZOLE 20 MG CAPSULE PO SCH (09:00)
[2018-03-24] MEDS: DOCUSATE SODIUM 100 MG CAPSULE PO SCH (09:00)
[2018-03-24] MEDS: TERBINAFINE HCL 1% 30 GM CREAM TP SCH ×2 (09:00→16:53)
[2018-03-24 16:00] VITALS: BP 138/78
[2018-03-24] MEDS: DIVALPROEX SODIUM 500 MG ER TABLET PO SCH (20:17)
[2018-03-24] MEDS: OLANZapine 10 MG RAPDIS TABLET PO SCH (20:17)
[2018-03-25] MEDS: FOLIC ACID 1 MG TABLET PO SCH (09:00)
[2018-03-25] MEDS: TERBINAFINE HCL 1% 30 GM CREAM TP SCH ×2 (09:00→16:17)
[2018-03-25] MEDS: THIAMINE HCL 100 MG TABLET PO SCH ×2 (09:00→16:17)
[2018-03-25] MEDS: DOCUSATE SODIUM 100 MG CAPSULE PO SCH (09:00)
[2018-03-25] MEDS: NALTREXONE HCL 50 MG TABLET PO SCH (09:00)
[2018-03-25] MEDS: OMEPRAZOLE 20 MG CAPSULE PO SCH (09:00)
[2018-03-25] MEDS: MULTIVITAMINS WITH MINERALS, THERAPEUTIC TABLET PO SCH (09:00)
[2018-03-25] MEDS: NICOTINE 21 MG/24 HOUR PATCH TD SCH (09:42)
[2018-03-25] MEDS ORDERED: DIVA500T52 PO (15:16)
[2018-03-25] MEDS ORDERED: OLAN10TA22 PO (15:16)
[2018-03-25] MEDS ORDERED: NALT50TA PO (15:16)
[2018-03-25] MEDS ORDERED: OMEP20 PO (16:22)
[2018-03-25] MEDS ORDERED: DSS100 PO (16:22)
[2018-03-25] MEDS ORDERED: MULT-1239 PO (16:23)
[2018-03-25] MEDS ORDERED: TERB30CR22 TP (16:28)
== END 2018-03-25 17:04 | disposition home or self-care (01) | DRG 750 ==
LOC: EMS 07:50 → B2S 09:11 → B3A 09:12
PROVIDERS: ADMIT Psychiatry & Neurology Psychiatry; ATTEND Psychiatry & Neurology Psychiatry
DX: F20.0 Paranoid schizophrenia (principal); R45.851 Suicidal ideations; F15.20 Other stimulant dependence, uncomplicated; F12.20 Cannabis dependence, uncomplicated; B35.3 Tinea pedis; F14.90 Cocaine use, unspecified, uncomplicated; J44.9 Chronic obstructive pulmonary disease, unspecified; K21.9 Gastro-esophageal reflux disease without esophagitis; F41.9 Anxiety disorder, unspecified; G47.00 Insomnia, unspecified; F17.210 Nicotine dependence, cigarettes, uncomplicated; F39 Unspecified mood [affective] disorder; Z59.0 Homelessness; Z56.0 Unemployment, unspecified; Z71.6 Tobacco abuse counseling; Z71.51 Drug abuse counseling and surveillance of drug abuser; Z71.41 Alcohol abuse counseling and surveillance of alcoholic; Z91.14 Patient's other noncompliance with medication regimen; Z72.89 Other problems related to lifestyle
CPT/HCPCS: 87081; 99285; 99406; G0480

== ENCOUNTER 2018-05-02 20:28 | Inpatient (IN) | payer MEDICAID, OTHER ==
[~2018-05-02] VITALS: Ht 167.6 cm; Wt 78.3 kg
[~2018-05-02 20:28] MED LIST changes: +DIVA-76 PO; -DIVA500T52 PO; +NALT50TA PO; +OLAN10TA22 PO; -OLAN10TA6 PO; +RISP2 PO
[2018-05-02 21:28] LABS: BASOPHILS % (AUTO) 1.2 % (0.0-2.0); EOSINOPHILS % (AUTO) 1.7 % (1.0-6.0); HEMOGLOBIN 13.3 g/dL (13.5-17.5); LYMPHOCYTES # (AUTO) 3.2 K/uL (1.0-4.8); LYMPHOCYTES % (AUTO) 35.3 % (22.0-44.0); MEAN CORPUSCULAR HEMOGLOBIN 27.5 pg (26.0-34.0); MEAN CORPUSCULAR VOLUME 79 fL (80-100); MONOCYTES # (AUTO) 0.6 K/uL (0.1-1.0); NEUTROPHILS # (AUTO) 4.9 K/uL (1.8-7.7); NEUTROPHILS % (AUTO) 54.8 % (40.0-70.0); PLATELET COUNT (AUTO) 321 K/uL (150-450); RED BLOOD CELL COUNT(AUTO) 4.82 MIL/uL (4.50-5.90); RED CELL DISTRIBUTION WIDTH 14.9 % (11.5-14.5)
[2018-05-02 21:49] LABS: ANION GAP 2 mmol/L (8-16); CALCIUM, TOTAL 8.4 mg/dL (8.8-10.5); CARBON DIOXIDE 33 mmol/L (22-29); CHLORIDE 104 mmol/L (98-107); CREATININE 1.23 mg/dL (0.60-1.30); GLOMERULAR FILTR. RATE CALC > 60 mL/min (>60); GLUCOSE,RANDOM 95 mg/dL (70-110); POTASSIUM 3.9 mmol/L (3.5-5.1); SODIUM SERUM 139 mmol/L (136-145); UREA NITROGEN, BLOOD 12 mg/dL (7-18)
[2018-05-02 21:50] LABS: AMPHET/METH SCREEN,URINE POSITIVE (NEGATIVE); BARBITURATE SCREEN, URINE NEGATIVE (NEGATIVE); BENZODIAZEPINES SCREEN,URINE NEGATIVE (NEGATIVE); CANNABINOID SCREEN,URINE NEGATIVE (NEGATIVE); COCAINE SCREEN,URINE NEGATIVE (NEGATIVE); METHADONE SCREEN, URINE NEGATIVE (NEGATIVE); OPIATE SCREEN,URINE NEGATIVE (NEGATIVE); PHENCYCLIDINE SCREEN,URINE NEGATIVE (NEGATIVE)
[2018-05-02 21:54] LABS: ALANINE AMINOTRANSFERASE 25 U/L (12-78); ALBUMIN 3.3 g/dL (3.4-5.0); ALKALINE PHOSPHATASE 99 U/L (46-116); ASPARTATE AMINOTRANSFERASE 15 U/L (15-37); BILIRUBIN,TOTAL 0.3 mg/dL (0.1-1.0); TOTAL PROTEIN, SERUM 6.8 g/dL (6.4-8.2)
[2018-05-03] MEDS ORDERED: ZOLPIDEM TARTRATE 5 MG TABLET PO PRN (03:30)
[2018-05-03] MEDS ORDERED: LORazepam 2 MG TABLET PO PRN (03:30)
[2018-05-03] MEDS ORDERED: ChlorproMAZINE HCL 100 MG TABLET PO PRN (03:30)
[2018-05-03] MEDS ORDERED: MAGNESIUM HYDROXIDE SUSPENSION 30 ML UDCUP PO PRN (11:45)
[2018-05-03] MEDS ORDERED: RisperiDONE MICROSPHERES 25 MG/2 ML SYRINGE IM ONE (11:45)
[2018-05-03] MEDS ORDERED: GuaiFENesin/D-METHORPHAN [SUGAR-FREE] 200-20MG/10 ML SYRUP UDCUP PO PRN (11:45)
[2018-05-03] MEDS ORDERED: RisperiDONE 1 MG TABLET PO PRN (11:45)
[2018-05-03] MEDS ORDERED: MAG HYDROX/AL HYDROX/SIMETH ES 30 ML SUSPENSION UDCUP PO PRN (11:45)
[2018-05-03] MEDS ORDERED: PROMETHAZINE HCL 25 MG TABLET PO PRN (11:45)
[2018-05-03] MEDS ORDERED: ACETAMINOPHEN 325 MG TABLET PO PRN (11:45)
[2018-05-03] MEDS ORDERED: LOPERAMIDE HCL 2 MG CAPSULE PO PRN (11:45)
[2018-05-03] MEDS ORDERED: HydrOXYzine PAMOATE 50 MG CAPSULE PO PRN (11:45)
[2018-05-03] MEDS: THIAMINE HCL 100 MG TABLET PO SCH (19:34)
[2018-05-03 19:42] VITALS: BP 135/82
[2018-05-03] MEDS: DIVALPROEX SODIUM 500 MG ER TABLET PO SCH (20:21)
[2018-05-03] MEDS: RisperiDONE 3 MG TABLET PO SCH (20:21)
[2018-05-04] MEDS: FOLIC ACID 1 MG TABLET PO SCH (09:00)
[2018-05-04] MEDS: MULTIVITAMINS WITH MINERALS, THERAPEUTIC TABLET PO SCH (09:00)
[2018-05-04] MEDS: NALTREXONE HCL 50 MG TABLET PO SCH (09:00)
[2018-05-04] MEDS: THIAMINE HCL 100 MG TABLET PO SCH ×2 (09:00→17:00)
[2018-05-04 16:00] VITALS: BP 106/79
[2018-05-04] MEDS ORDERED: BENZOCAINE/MENTHOL LOZENGE MM PRN (19:15)
[2018-05-04] MEDS ORDERED: ACETAMINOPHEN 325 MG TABLET PO PRN (19:15)
[2018-05-04] MEDS ORDERED: BACITRACIN 28.4 GM OINTMENT TP PRN (19:15)
[2018-05-04] MEDS ORDERED: MAG HYDROX/AL HYDROX/SIMETH ES 30 ML SUSPENSION UDCUP PO PRN (19:15)
[2018-05-04] MEDS ORDERED: MAGNESIUM HYDROXIDE SUSPENSION 30 ML UDCUP PO PRN (19:15)
[2018-05-04] MEDS ORDERED: CloNIDine HCL 0.1 MG TABLET PO PRN (19:15)
[2018-05-04] MEDS ORDERED: IBUPROFEN 600 MG TABLET PO PRN (19:15)
[2018-05-04] MEDS ORDERED: DOCUSATE SODIUM 100 MG CAPSULE PO PRN (19:15)
[2018-05-04] MEDS ORDERED: OMEPRAZOLE 20 MG CAPSULE PO PRN (19:15)
[2018-05-04] MEDS ORDERED: ONDANSETRON HCL 4 MG TABLET PO PRN (19:15)
[2018-05-04] MEDS ORDERED: PETROLATUM,WHITE 71 GM JELLY TP PRN (19:15)
[2018-05-04] MEDS ORDERED: LOPERAMIDE HCL 2 MG CAPSULE PO PRN (19:15)
[2018-05-04] MEDS ORDERED: ALBUTEROL SULFATE HFA 90 MCG/PUFF 8 GM INHALER IH PRN (19:15)
[2018-05-04] MEDS: DIVALPROEX SODIUM 500 MG ER TABLET PO SCH (20:52)
[2018-05-04] MEDS: RisperiDONE 3 MG TABLET PO SCH (20:52)
[2018-05-05] MEDS: FOLIC ACID 1 MG TABLET PO SCH (09:00)
[2018-05-05] MEDS: THIAMINE HCL 100 MG TABLET PO SCH ×2 (09:00→17:19)
[2018-05-05] MEDS: MULTIVITAMINS WITH MINERALS, THERAPEUTIC TABLET PO SCH (09:00)
[2018-05-05] MEDS: NALTREXONE HCL 50 MG TABLET PO SCH (09:00)
[2018-05-05 16:00] VITALS: BP 121/84
[2018-05-05] MEDS: RisperiDONE 3 MG TABLET PO SCH (20:18)
[2018-05-06] MEDS: THIAMINE HCL 100 MG TABLET PO SCH ×2 (08:50→16:31)
[2018-05-06] MEDS: MULTIVITAMINS WITH MINERALS, THERAPEUTIC TABLET PO SCH (08:50)
[2018-05-06] MEDS: FOLIC ACID 1 MG TABLET PO SCH (08:50)
[2018-05-06] MEDS: NALTREXONE HCL 50 MG TABLET PO SCH (08:50)
[2018-05-06 10:20] VITALS: BP 117/75
[2018-05-06 16:47] VITALS: BP 131/80
[2018-05-06] MEDS ORDERED: RisperiDONE 3 MG TABLET PO SCH (21:00)
[2018-05-07] MEDS: FOLIC ACID 1 MG TABLET PO SCH (08:23)
[2018-05-07] MEDS: NALTREXONE HCL 50 MG TABLET PO SCH (08:23)
[2018-05-07] MEDS: THIAMINE HCL 100 MG TABLET PO SCH (08:23)
[2018-05-07] MEDS: MULTIVITAMINS WITH MINERALS, THERAPEUTIC TABLET PO SCH (08:23)
[2018-05-07] MEDS ORDERED: RISP3 PO (11:48)
[2018-05-07] MEDS ORDERED: NALT50TA PO (11:48)
[2018-05-18] MEDS ORDERED: RisperiDONE MICROSPHERES 25 MG/2 ML SYRINGE IM SCH (09:00)
== END 2018-05-07 14:40 | disposition home or self-care (01) | DRG 750 ==
LOC: EMS 20:29 → 3EC 05-03 18:36
PROVIDERS: ADMIT Psychiatry & Neurology Psychiatry; ATTEND Psychiatry & Neurology Psychiatry
DX: F25.9 Schizoaffective disorder, unspecified (principal); R45.851 Suicidal ideations; R45.850 Homicidal ideations; F12.90 Cannabis use, unspecified, uncomplicated; F15.10 Other stimulant abuse, uncomplicated; F17.210 Nicotine dependence, cigarettes, uncomplicated; F31.9 Bipolar disorder, unspecified; F60.0 Paranoid personality disorder; G47.00 Insomnia, unspecified; J44.9 Chronic obstructive pulmonary disease, unspecified; F14.90 Cocaine use, unspecified, uncomplicated; K21.9 Gastro-esophageal reflux disease without esophagitis; Z59.0 Homelessness; Z65.3 Problems related to other legal circumstances; Z91.19 Patient's noncompliance with other medical treatment and regimen; Z79.899 Other long term (current) drug therapy; Z91.018 Allergy to other foods; Z56.0 Unemployment, unspecified; Z72.89 Other problems related to lifestyle; Z71.6 Tobacco abuse counseling; Z71.51 Drug abuse counseling and surveillance of drug abuser; Z71.41 Alcohol abuse counseling and surveillance of alcoholic
CPT/HCPCS: 87081; G0480; J2794

== ENCOUNTER 2018-05-14 18:06 | Inpatient (IN) | payer MEDICAID, OTHER ==
[~2018-05-14] VITALS: Ht 165.1 cm; Wt 85.5 kg
[~2018-05-14 18:06] MED LIST changes: -DIVA-76 PO; -NALT50TA6 PO; -OLAN10TA22 PO; -RISP2 PO; +RISP3 PO
[2018-05-14 19:05] LABS: AMPHET/METH SCREEN,URINE NEGATIVE (NEGATIVE); BARBITURATE SCREEN, URINE NEGATIVE (NEGATIVE); BENZODIAZEPINES SCREEN,URINE NEGATIVE (NEGATIVE); CANNABINOID SCREEN,URINE NEGATIVE (NEGATIVE); COCAINE SCREEN,URINE NEGATIVE (NEGATIVE); METHADONE SCREEN, URINE NEGATIVE (NEGATIVE); OPIATE SCREEN,URINE NEGATIVE (NEGATIVE); PHENCYCLIDINE SCREEN,URINE NEGATIVE (NEGATIVE)
[2018-05-14] MEDS ORDERED: ZOLPIDEM TARTRATE 10 MG TABLET PO PRN (19:30)
[2018-05-14] MEDS ORDERED: HALOPERIDOL 5 MG TABLET PO PRN (19:30)
[2018-05-14 20:24] LABS: BASOPHILS % (AUTO) 0.7 % (0.0-2.0); HEMATOCRIT 37.6 % (41-53); HEMOGLOBIN 12.7 g/dL (13.5-17.5); LYMPHOCYTES # (AUTO) 3.2 K/uL (1.0-4.8); LYMPHOCYTES % (AUTO) 41.3 % (22.0-44.0); MEAN CORPUSCULAR HEMOGLOBIN 26.7 pg (26.0-34.0); MEAN CORPUSCULAR HGB CONC 33.8 G/dL (31.0-37.0); MEAN CORPUSCULAR VOLUME 79 fL (80-100); MONOCYTES # (AUTO) 0.3 K/uL (0.1-1.0); MONOCYTES % (AUTO) 3.8 % (2.0-9.0); NEUTROPHILS # (AUTO) 4.1 K/uL (1.8-7.7); NEUTROPHILS % (AUTO) 52.2 % (40.0-70.0); PLATELET COUNT (AUTO) 290 K/uL (150-450); RED BLOOD CELL COUNT(AUTO) 4.75 MIL/uL (4.50-5.90); RED CELL DISTRIBUTION WIDTH 15.3 % (11.5-14.5)
[2018-05-14] MEDS ORDERED: ALBUTEROL SULFATE HFA 90 MCG/PUFF 8 GM INHALER IH PRN (20:30)
[2018-05-14] MEDS ORDERED: LOPERAMIDE HCL 2 MG CAPSULE PO PRN (20:30)
[2018-05-14] MEDS ORDERED: ACETAMINOPHEN 325 MG TABLET PO PRN (20:30)
[2018-05-14] MEDS ORDERED: MAG HYDROX/AL HYDROX/SIMETH ES 30 ML SUSPENSION UDCUP PO PRN (20:30)
[2018-05-14] MEDS ORDERED: BACITRACIN 28.4 GM OINTMENT TP PRN (20:30)
[2018-05-14] MEDS ORDERED: BENZOCAINE/MENTHOL LOZENGE MM PRN (20:30)
[2018-05-14] MEDS ORDERED: PETROLATUM,WHITE 71 GM JELLY TP PRN (20:30)
[2018-05-14] MEDS ORDERED: IBUPROFEN 600 MG TABLET PO PRN (20:30)
[2018-05-14] MEDS ORDERED: CloNIDine HCL 0.1 MG TABLET PO PRN (20:30)
[2018-05-14] MEDS ORDERED: ONDANSETRON HCL 4 MG TABLET PO PRN (20:30)
[2018-05-14] MEDS ORDERED: MAGNESIUM HYDROXIDE SUSPENSION 30 ML UDCUP PO PRN (20:30)
[2018-05-14 20:34] LABS: ANION GAP 8 mmol/L (8-16); CALCIUM, TOTAL 8.9 mg/dL (8.8-10.5); CARBON DIOXIDE 33 mmol/L (22-29); CHLORIDE 108 mmol/L (98-107); CREATININE 1.06 mg/dL (0.60-1.30); GLOMERULAR FILTR. RATE CALC > 60 mL/min (>60); GLUCOSE,RANDOM 115 mg/dL (70-110); POTASSIUM 3.6 mmol/L (3.5-5.1); SODIUM SERUM 149 mmol/L (136-145); UREA NITROGEN, BLOOD 10 mg/dL (7-18)
[2018-05-14 20:39] LABS: ALANINE AMINOTRANSFERASE 25 U/L (12-78); ALBUMIN 3.2 g/dL (3.4-5.0); ALKALINE PHOSPHATASE 105 U/L (46-116); ASPARTATE AMINOTRANSFERASE 15 U/L (15-37); BILIRUBIN,TOTAL 0.4 mg/dL (0.1-1.0); TOTAL PROTEIN, SERUM 6.6 g/dL (6.4-8.2)
[2018-05-14] MEDS: RisperiDONE 2 MG TABLET PO SCH (20:43)
[2018-05-14 21:38] VITALS: BP 105/63
[2018-05-15] MEDS: OMEPRAZOLE 20 MG CAPSULE PO SCH (09:00)
[2018-05-15] MEDS: DOCUSATE SODIUM 100 MG CAPSULE PO SCH (09:00)
[2018-05-15 16:23] VITALS: BP 140/82
[2018-05-15] MEDS: LORazepam 2 MG TABLET PO PRN (17:58)
[2018-05-15] MEDS: RisperiDONE 2 MG TABLET PO SCH (20:26)
[2018-05-16 05:12] VITALS: BP 129/77
[2018-05-16 08:15] VITALS: BP 138/76
[2018-05-16] MEDS: DOCUSATE SODIUM 100 MG CAPSULE PO SCH (09:00)
[2018-05-16] MEDS: OMEPRAZOLE 20 MG CAPSULE PO SCH (09:00)
[2018-05-16 16:11] VITALS: BP 133/70
[2018-05-16] MEDS: LORazepam 2 MG TABLET PO PRN (17:04)
[2018-05-16] MEDS: RisperiDONE 3 MG TABLET PO SCH (21:12)
[2018-05-17] MEDS: OMEPRAZOLE 20 MG CAPSULE PO SCH (09:00)
[2018-05-17] MEDS: DOCUSATE SODIUM 100 MG CAPSULE PO SCH (09:00)
[2018-05-17] MEDS: LORazepam 2 MG TABLET PO PRN (17:11)
[2018-05-17] MEDS: RisperiDONE 3 MG TABLET PO SCH (20:43)
[2018-05-18] MEDS: DOCUSATE SODIUM 100 MG CAPSULE PO SCH (09:00)
[2018-05-18] MEDS: OMEPRAZOLE 20 MG CAPSULE PO SCH (09:00)
[2018-05-18 16:10] VITALS: BP 122/82
[2018-05-18] MEDS: LORazepam 2 MG TABLET PO PRN (16:30)
[2018-05-18] MEDS: RisperiDONE 3 MG TABLET PO SCH (20:53)
[2018-05-19] MEDS: DOCUSATE SODIUM 100 MG CAPSULE PO SCH (08:24)
[2018-05-19] MEDS: OMEPRAZOLE 20 MG CAPSULE PO SCH (08:24)
[2018-05-19 08:25] VITALS: BP 110/71
[2018-05-19 16:09] VITALS: BP 132/64
[2018-05-19] MEDS: LORazepam 2 MG TABLET PO PRN (19:32)
[2018-05-19] MEDS ORDERED: RisperiDONE 4 MG TABLET PO SCH (21:00)
[2018-05-20 08:12] VITALS: BP 131/68
[2018-05-20] MEDS: OMEPRAZOLE 20 MG CAPSULE PO SCH (08:34)
[2018-05-20] MEDS: DOCUSATE SODIUM 100 MG CAPSULE PO SCH (08:34)
[2018-05-20 09:20] LABS: APPEARANCE,URINE CLOUDY (CLEAR); BILIRUBIN,URINE NEGATIVE (NEGATIVE); GLUCOSE, URINE (UA) NEGATIVE (NEGATIVE); KETONES,URINE NEGATIVE (NEGATIVE); LEUKOCYTE ESTERASE ,URINE NEGATIVE (NEGATIVE); NITRATE,URINE NEGATIVE (NEGATIVE); OCCULT BLOOD,URINE NEGATIVE (NEGATIVE); PROTEIN,URINE NEGATIVE (NEGATIVE); UROBILINOGEN,URINE 0.2 mg/dL (<=1.0)
[2018-05-20] MEDS ORDERED: DSS100 PO (14:23)
[2018-05-20] MEDS ORDERED: RISP4 PO (14:23)
[2018-05-20] MEDS ORDERED: OMEP20 PO (14:24)
[2018-05-20 16:32] VITALS: BP 111/82
== END 2018-05-20 18:22 | disposition home or self-care (01) | DRG 750 ==
LOC: EMS 18:09 → B3A 19:30
PROVIDERS: ADMIT Psychiatry & Neurology Psychiatry; ATTEND Psychiatry & Neurology Psychiatry
DX: F25.0 Schizoaffective disorder, bipolar type (principal); R45.851 Suicidal ideations; F12.90 Cannabis use, unspecified, uncomplicated; F15.10 Other stimulant abuse, uncomplicated; F41.9 Anxiety disorder, unspecified; G47.00 Insomnia, unspecified; I10 Essential (primary) hypertension; F17.210 Nicotine dependence, cigarettes, uncomplicated; J44.9 Chronic obstructive pulmonary disease, unspecified; K21.9 Gastro-esophageal reflux disease without esophagitis; Z79.899 Other long term (current) drug therapy; Z72.89 Other problems related to lifestyle
CPT/HCPCS: 87081; G0480

== ENCOUNTER 2018-06-27 06:20 | Inpatient (IN) | payer MEDICAID, OTHER ==
[~2018-06-27] VITALS: Ht 165.1 cm; Wt 78.0 kg
[~2018-06-27 06:20] MED LIST changes: +DSS100 PO; -NALT50TA PO; +OMEP20 PO; -RISP3 PO; +RISP4 PO
[2018-06-27 07:38] LABS: BASOPHILS % (AUTO) 0.9 % (0.0-2.0); EOSINOPHILS % (AUTO) 0.7 % (1.0-6.0); HEMATOCRIT 43.2 % (41-53); HEMOGLOBIN 14.6 g/dL (13.5-17.5); LYMPHOCYTES # (AUTO) 2.8 K/uL (1.0-4.8); LYMPHOCYTES % (AUTO) 26.6 % (22.0-44.0); MEAN CORPUSCULAR HEMOGLOBIN 26.8 pg (26.0-34.0); MEAN CORPUSCULAR HGB CONC 33.9 G/dL (31.0-37.0); MEAN CORPUSCULAR VOLUME 79 fL (80-100); MONOCYTES # (AUTO) 0.7 K/uL (0.1-1.0); MONOCYTES % (AUTO) 6.5 % (2.0-9.0); NEUTROPHILS # (AUTO) 6.8 K/uL (1.8-7.7); NEUTROPHILS % (AUTO) 65.3 % (40.0-70.0); PLATELET COUNT (AUTO) 310 K/uL (150-450); RED BLOOD CELL COUNT(AUTO) 5.46 MIL/uL (4.50-5.90); RED CELL DISTRIBUTION WIDTH 15.2 % (11.5-14.5)
[2018-06-27 07:56] LABS: ANION GAP 7 mmol/L (8-16); CALCIUM, TOTAL 9.1 mg/dL (8.8-10.5); CARBON DIOXIDE 31 mmol/L (22-29); CHLORIDE 103 mmol/L (98-107); CREATININE 1.16 mg/dL (0.60-1.30); GLOMERULAR FILTR. RATE CALC > 60 mL/min (>60); GLUCOSE,RANDOM 88 mg/dL (70-110); POTASSIUM 3.9 mmol/L (3.5-5.1); SODIUM SERUM 141 mmol/L (136-145); UREA NITROGEN, BLOOD 11 mg/dL (7-18)
[2018-06-27 08:01] LABS: ALANINE AMINOTRANSFERASE 17 U/L (12-78); ALBUMIN 3.8 g/dL (3.4-5.0); ALKALINE PHOSPHATASE 104 U/L (46-116); ASPARTATE AMINOTRANSFERASE 13 U/L (15-37); BILIRUBIN,TOTAL 0.6 mg/dL (0.1-1.0); TOTAL PROTEIN, SERUM 7.5 g/dL (6.4-8.2)
[2018-06-27] MEDS ORDERED: ZOLPIDEM TARTRATE 10 MG TABLET PO PRN (08:30)
[2018-06-27] MEDS ORDERED: HALOPERIDOL 5 MG TABLET PO PRN (08:30)
[2018-06-27] MEDS ORDERED: ACETAMINOPHEN 325 MG TABLET PO PRN ×2 (08:45→10:15)
[2018-06-27] MEDS ORDERED: IBUPROFEN 400 MG TABLET PO PRN ×2 (08:45→10:15)
[2018-06-27] MEDS ORDERED: MAG HYDROX/AL HYDROX/SIMETH ES 30 ML SUSPENSION UDCUP PO PRN (10:15)
[2018-06-27] MEDS ORDERED: PETROLATUM,WHITE 71 GM JELLY TP PRN (10:15)
[2018-06-27] MEDS ORDERED: DOCUSATE SODIUM 100 MG CAPSULE PO PRN (10:15)
[2018-06-27] MEDS ORDERED: MAGNESIUM HYDROXIDE SUSPENSION 30 ML UDCUP PO PRN (10:15)
[2018-06-27] MEDS ORDERED: LOPERAMIDE HCL 2 MG CAPSULE PO PRN (10:15)
[2018-06-27] MEDS ORDERED: GuaiFENesin/D-METHORPHAN [SUGAR-FREE] 200-20MG/10 ML SYRUP UDCUP PO PRN (10:15)
[2018-06-27 11:58] VITALS: BP 136/85
[2018-06-27] MEDS: NICOTINE 21 MG/24 HOUR PATCH TD SCH (13:38)
[2018-06-27 17:29] VITALS: BP 129/84
[2018-06-27] MEDS: RisperiDONE 4 MG TABLET PO SCH (20:38)
[2018-06-28 04:18] VITALS: BP 123/87
[2018-06-28] MEDS: NICOTINE 21 MG/24 HOUR PATCH TD SCH ×2 (08:46→09:00)
[2018-06-28] MEDS: SERTRALINE HCL 50 MG TABLET PO SCH (08:46)
[2018-06-28 16:30] VITALS: BP 119/81
[2018-06-28] MEDS: RisperiDONE 4 MG TABLET PO SCH (20:21)
[2018-06-29 02:02] VITALS: BP 117/83
[2018-06-29 08:43] VITALS: BP 140/85
[2018-06-29] MEDS: NICOTINE 21 MG/24 HOUR PATCH TD SCH (09:00)
[2018-06-29] MEDS: RisperiDONE 2 MG TABLET PO SCH (09:19)
[2018-06-29] MEDS: SERTRALINE HCL 50 MG TABLET PO SCH (09:19)
[2018-06-29 16:57] VITALS: BP 124/78
[2018-06-29] MEDS: RisperiDONE 4 MG TABLET PO SCH (20:06)
[2018-06-30 02:22] VITALS: BP 118/88
[2018-06-30] MEDS: NICOTINE 21 MG/24 HOUR PATCH TD SCH (09:00)
[2018-06-30] MEDS: RisperiDONE 2 MG TABLET PO SCH (09:23)
[2018-06-30] MEDS: SERTRALINE HCL 50 MG TABLET PO SCH (09:23)
[2018-06-30 16:08] VITALS: BP 133/96
[2018-06-30] MEDS: RisperiDONE 4 MG TABLET PO SCH (21:07)
[2018-07-01] MEDS: RisperiDONE 2 MG TABLET PO SCH (10:10)
[2018-07-01] MEDS: NICOTINE 21 MG/24 HOUR PATCH TD SCH (10:10)
[2018-07-01] MEDS: SERTRALINE HCL 50 MG TABLET PO SCH (10:10)
[2018-07-01 17:46] VITALS: BP 124/77
[2018-07-01] MEDS: RisperiDONE 4 MG TABLET PO SCH (19:59)
[2018-07-02] MEDS: SERTRALINE HCL 50 MG TABLET PO SCH (09:00)
[2018-07-02] MEDS: RisperiDONE 2 MG TABLET PO SCH (09:00)
[2018-07-02] MEDS: NICOTINE 21 MG/24 HOUR PATCH TD SCH (09:00)
[2018-07-02] MEDS ORDERED: LORazepam 2 MG/ML VIAL ONE (14:29)
[2018-07-02] MEDS ORDERED: DiphenhydrAMINE HCL 50 MG/ML VIAL ONE (14:29)
[2018-07-02] MEDS ORDERED: HALOPERIDOL LACTATE 5 MG/ML VIAL ONE (14:29)
[2018-07-02] MEDS ORDERED: LORazepam 2 MG/ML VIAL IM ONE (15:15)
[2018-07-02] MEDS ORDERED: DiphenhydrAMINE HCL 50 MG/ML VIAL IM ONE (15:15)
[2018-07-02] MEDS ORDERED: HALOPERIDOL LACTATE 5 MG/ML VIAL IM ONE (15:15)
[2018-07-02 16:16] VITALS: BP 126/78
[2018-07-02] MEDS: RisperiDONE 4 MG TABLET PO SCH (20:20)
[2018-07-03] MEDS: NICOTINE 21 MG/24 HOUR PATCH TD SCH (09:00)
[2018-07-03] MEDS: RisperiDONE 2 MG TABLET PO SCH (09:00)
[2018-07-03] MEDS: SERTRALINE HCL 50 MG TABLET PO SCH (09:00)
[2018-07-03] MEDS: RisperiDONE 4 MG TABLET PO SCH (20:49)
[2018-07-03] MEDS: LORazepam 2 MG TABLET PO PRN (20:49)
[2018-07-04] MEDS: RisperiDONE 2 MG TABLET PO SCH (09:00)
[2018-07-04] MEDS: NICOTINE 21 MG/24 HOUR PATCH TD SCH (09:00)
[2018-07-04] MEDS: SERTRALINE HCL 50 MG TABLET PO SCH (09:00)
[2018-07-04 16:00] VITALS: BP 119/69
[2018-07-04] MEDS: LORazepam 2 MG TABLET PO PRN (17:49)
[2018-07-04] MEDS: RisperiDONE 4 MG TABLET PO SCH (20:11)
[2018-07-05] MEDS: NICOTINE 21 MG/24 HOUR PATCH TD SCH (08:43)
[2018-07-05] MEDS: SERTRALINE HCL 50 MG TABLET PO SCH (08:43)
[2018-07-05] MEDS: RisperiDONE 2 MG TABLET PO SCH (08:43)
[2018-07-05] MEDS: RisperiDONE 4 MG TABLET PO SCH (20:13)
[2018-07-06] MEDS: RisperiDONE 2 MG TABLET PO SCH ×2 (08:34→09:00)
[2018-07-06] MEDS: SERTRALINE HCL 50 MG TABLET PO SCH ×2 (08:34→09:00)
[2018-07-06] MEDS: NICOTINE 21 MG/24 HOUR PATCH TD SCH (08:34)
[2018-07-06 16:39] VITALS: BP 127/74
[2018-07-06] MEDS: RisperiDONE 4 MG TABLET PO SCH (20:31)
[2018-07-07] MEDS: SERTRALINE HCL 50 MG TABLET PO SCH (08:40)
[2018-07-07] MEDS: RisperiDONE 2 MG TABLET PO SCH (08:40)
[2018-07-07] MEDS: NICOTINE 21 MG/24 HOUR PATCH TD SCH (08:57)
[2018-07-07 16:00] VITALS: BP 103/64
[2018-07-07] MEDS: RisperiDONE 4 MG TABLET PO SCH (21:02)
[2018-07-08 06:36] VITALS: BP 122/78
[2018-07-08] MEDS: NICOTINE 21 MG/24 HOUR PATCH TD SCH (09:00)
[2018-07-08] MEDS: RisperiDONE 2 MG TABLET PO SCH (09:39)
[2018-07-08] MEDS: SERTRALINE HCL 50 MG TABLET PO SCH (09:39)
[2018-07-08 16:00] VITALS: BP 109/70
[2018-07-08] MEDS: RisperiDONE 4 MG TABLET PO SCH (20:19)
[2018-07-09] MEDS: SERTRALINE HCL 50 MG TABLET PO SCH (08:38)
[2018-07-09] MEDS: RisperiDONE 2 MG TABLET PO SCH (08:38)
[2018-07-09] MEDS: NICOTINE 21 MG/24 HOUR PATCH TD SCH (08:41)
[2018-07-09 16:08] VITALS: BP 136/73
[2018-07-09] MEDS: RisperiDONE 4 MG TABLET PO SCH (20:03)
[2018-07-10] MEDS: SERTRALINE HCL 50 MG TABLET PO SCH (08:38)
[2018-07-10] MEDS: RisperiDONE 2 MG TABLET PO SCH (08:38)
[2018-07-10] MEDS: NICOTINE 21 MG/24 HOUR PATCH TD SCH (08:38)
[2018-07-10 17:54] VITALS: BP 116/65
[2018-07-10] MEDS: RisperiDONE 4 MG TABLET PO SCH (20:57)
[2018-07-11 00:25] VITALS: BP 118/72
[2018-07-11] MEDS: NICOTINE 21 MG/24 HOUR PATCH TD SCH (08:33)
[2018-07-11] MEDS: RisperiDONE 2 MG TABLET PO SCH (08:33)
[2018-07-11] MEDS: SERTRALINE HCL 50 MG TABLET PO SCH (08:33)
[2018-07-11 16:22] VITALS: BP 114/69
[2018-07-11] MEDS: RisperiDONE 4 MG TABLET PO SCH (20:19)
[2018-07-12] MEDS: SERTRALINE HCL 50 MG TABLET PO SCH (08:24)
[2018-07-12] MEDS: RisperiDONE 2 MG TABLET PO SCH (08:24)
[2018-07-12] MEDS: NICOTINE 21 MG/24 HOUR PATCH TD SCH (08:24)
[2018-07-12 16:18] VITALS: BP 137/68
[2018-07-12] MEDS: RisperiDONE 4 MG TABLET PO SCH (20:28)
[2018-07-13] MEDS: RisperiDONE 2 MG TABLET PO SCH (08:23)
[2018-07-13] MEDS: SERTRALINE HCL 50 MG TABLET PO SCH (08:23)
[2018-07-13] MEDS ORDERED: RISP1TAB89 PO (12:29)
[2018-07-13] MEDS ORDERED: RISP2TAB76 PO (12:29)
[2018-07-13] MEDS ORDERED: SERT25TA PO (12:30)
== END 2018-07-13 16:45 | disposition home or self-care (01) | DRG 750 ==
LOC: EMS 06:21 → B2S 09:48 → B3A 07-02 15:44
PROVIDERS: ADMIT Psychiatry & Neurology Psychiatry; ATTEND Psychiatry & Neurology Psychiatry
DX: F25.0 Schizoaffective disorder, bipolar type (principal); R45.851 Suicidal ideations; Z59.0 Homelessness; F41.9 Anxiety disorder, unspecified; J44.9 Chronic obstructive pulmonary disease, unspecified; K21.9 Gastro-esophageal reflux disease without esophagitis; F17.200 Nicotine dependence, unspecified, uncomplicated; F12.90 Cannabis use, unspecified, uncomplicated; F10.10 Alcohol abuse, uncomplicated; F14.90 Cocaine use, unspecified, uncomplicated; Z60.2 Problems related to living alone; F19.10 Other psychoactive substance abuse, uncomplicated; F32.9 Major depressive disorder, single episode, unspecified; Z79.899 Other long term (current) drug therapy; Z91.5 Personal history of self-harm; Z71.6 Tobacco abuse counseling; Z71.41 Alcohol abuse counseling and surveillance of alcoholic; Z91.018 Allergy to other foods
CPT/HCPCS: G0480; J1200; J1630; J2060

== ENCOUNTER 2018-07-28 22:42 | Inpatient (IN) | payer MEDICAID ==
[~2018-07-28] VITALS: Ht 165.1 cm; Wt 77.8 kg
[~2018-07-28 22:42] MED LIST changes: -DSS100 PO; -OMEP20 PO; +RISP1TAB89 PO; +RISP2TAB76 PO; -RISP4 PO; +SERT25TA PO
[2018-07-29] MEDS ORDERED: DiphenhydrAMINE HCL 50 MG/ML VIAL IM ONE (01:15)
[2018-07-29] MEDS ORDERED: LORazepam 2 MG/ML VIAL IM ONE (01:15)
[2018-07-29] MEDS ORDERED: HALOPERIDOL LACTATE 5 MG/ML VIAL IM ONE (01:15)
[2018-07-29] MEDS ORDERED: HALOPERIDOL 5 MG TABLET PO PRN (01:45)
[2018-07-29] MEDS ORDERED: ZOLPIDEM TARTRATE 10 MG TABLET PO PRN (01:45)
[2018-07-29] MEDS ORDERED: LORazepam 2 MG TABLET PO PRN (01:45)
[2018-07-29] MEDS ORDERED: ALBUTEROL SULFATE HFA 90 MCG/PUFF 8 GM INHALER IH PRN (09:30)
[2018-07-29] MEDS ORDERED: LOPERAMIDE HCL 2 MG CAPSULE PO PRN (09:30)
[2018-07-29] MEDS ORDERED: NICOTINE 14 MG/24 HOUR PATCH TD PRN (09:30)
[2018-07-29] MEDS ORDERED: ONDANSETRON HCL 4 MG TABLET PO PRN (09:30)
[2018-07-29] MEDS ORDERED: CloNIDine HCL 0.1 MG TABLET PO PRN (09:30)
[2018-07-29] MEDS ORDERED: PETROLATUM,WHITE 71 GM JELLY TP PRN (09:30)
[2018-07-29] MEDS ORDERED: DOCUSATE SODIUM 100 MG CAPSULE PO PRN (09:30)
[2018-07-29] MEDS ORDERED: IBUPROFEN 400 MG TABLET PO PRN (09:30)
[2018-07-29] MEDS ORDERED: MAG HYDROX/AL HYDROX/SIMETH ES 30 ML SUSPENSION UDCUP PO PRN (09:30)
[2018-07-29] MEDS ORDERED: MAGNESIUM HYDROXIDE SUSPENSION 30 ML UDCUP PO PRN (09:30)
[2018-07-29] MEDS ORDERED: ACETAMINOPHEN 325 MG TABLET PO PRN (09:30)
[2018-07-29] MEDS: RisperiDONE 4 MG TABLET PO SCH (21:00)
[2018-07-30] MEDS: RisperiDONE 2 MG TABLET PO SCH ×2 (09:00→09:22)
[2018-07-30] MEDS: SERTRALINE HCL 50 MG TABLET PO SCH ×2 (09:00→09:22)
[2018-07-30] MEDS: RisperiDONE 4 MG TABLET PO SCH (20:06)
[2018-07-31] MEDS: SERTRALINE HCL 50 MG TABLET PO SCH (09:00)
[2018-07-31] MEDS: RisperiDONE 2 MG TABLET PO SCH (09:00)
[2018-07-31 16:00] VITALS: BP 114/69
[2018-07-31] MEDS: RisperiDONE 4 MG TABLET PO SCH (21:00)
[2018-08-01] MEDS: SERTRALINE HCL 50 MG TABLET PO SCH (08:33)
[2018-08-01] MEDS: RisperiDONE 2 MG TABLET PO SCH (08:34)
[2018-08-01 16:59] VITALS: BP 122/77
[2018-08-01] MEDS: RisperiDONE 4 MG TABLET PO SCH (20:35)
[2018-08-02] MEDS: RisperiDONE 2 MG TABLET PO SCH (09:00)
[2018-08-02] MEDS: SERTRALINE HCL 50 MG TABLET PO SCH (09:00)
[2018-08-02 18:31] VITALS: BP 98/56
[2018-08-02] MEDS: RisperiDONE 4 MG TABLET PO SCH (21:00)
[2018-08-03] MEDS: SERTRALINE HCL 50 MG TABLET PO SCH (10:25)
[2018-08-03] MEDS: RisperiDONE 2 MG TABLET PO SCH (10:25)
[2018-08-03 16:52] VITALS: BP 145/80
[2018-08-03] MEDS: RisperiDONE 4 MG TABLET PO SCH (20:13)
[2018-08-04] MEDS: RisperiDONE 2 MG TABLET PO SCH (10:43)
[2018-08-04] MEDS: SERTRALINE HCL 50 MG TABLET PO SCH (10:43)
[2018-08-04 16:30] VITALS: BP 116/87
[2018-08-04] MEDS: RisperiDONE 4 MG TABLET PO SCH (20:23)
[2018-08-05] MEDS: SERTRALINE HCL 50 MG TABLET PO SCH ×2 (09:00→09:18)
[2018-08-05] MEDS: RisperiDONE 2 MG TABLET PO SCH ×2 (09:00→09:18)
[2018-08-05] MEDS: GuaiFENesin/D-METHORPHAN [SUGAR-FREE] 200-20MG/10 ML SYRUP UDCUP PO PRN (17:47)
[2018-08-05] MEDS: RisperiDONE 4 MG TABLET PO SCH (20:37)
[2018-08-06] MEDS: RisperiDONE 2 MG TABLET PO SCH (11:16)
[2018-08-06] MEDS: SERTRALINE HCL 50 MG TABLET PO SCH (11:16)
[2018-08-06] MEDS: GuaiFENesin/D-METHORPHAN [SUGAR-FREE] 200-20MG/10 ML SYRUP UDCUP PO PRN (16:41)
[2018-08-06] MEDS: RisperiDONE 4 MG TABLET PO SCH (20:13)
[2018-08-06 22:43] VITALS: BP 124/76
[2018-08-07] MEDS: SERTRALINE HCL 50 MG TABLET PO SCH (09:32)
[2018-08-07] MEDS: RisperiDONE 2 MG TABLET PO SCH (09:32)
[2018-08-07 10:42] VITALS: BP 142/10
[2018-08-07] MEDS ORDERED: DiphenhydrAMINE HCL 50 MG/ML VIAL ONE (15:39)
[2018-08-07] MEDS ORDERED: HALOPERIDOL LACTATE 5 MG/ML VIAL ONE (15:39)
[2018-08-07] MEDS ORDERED: LORazepam 2 MG/ML VIAL ONE (15:39)
[2018-08-07] MEDS ORDERED: LORazepam 2 MG/ML VIAL IM ONE ×2 (15:45)
[2018-08-07] MEDS ORDERED: DiphenhydrAMINE HCL 50 MG/ML VIAL IM ONE ×2 (15:45)
[2018-08-07] MEDS ORDERED: HALOPERIDOL LACTATE 5 MG/ML VIAL IM ONE ×2 (15:45)
[2018-08-07 17:26] VITALS: BP 108/62
[2018-08-07] MEDS: RisperiDONE 4 MG TABLET PO SCH (21:00)
[2018-08-08] MEDS: RisperiDONE 2 MG TABLET PO SCH (09:09)
[2018-08-08] MEDS: SERTRALINE HCL 50 MG TABLET PO SCH (09:09)
[2018-08-08] MEDS: RisperiDONE 4 MG TABLET PO SCH (20:10)
[2018-08-09] MEDS: RisperiDONE 2 MG TABLET PO SCH (09:00)
[2018-08-09] MEDS: SERTRALINE HCL 50 MG TABLET PO SCH (09:00)
[2018-08-09 16:12] VITALS: BP 115/63
[2018-08-09] MEDS: RisperiDONE 4 MG TABLET PO SCH (20:25)
[2018-08-10] MEDS: RisperiDONE 2 MG TABLET PO SCH (09:00)
[2018-08-10] MEDS: SERTRALINE HCL 50 MG TABLET PO SCH (09:00)
[2018-08-10 16:00] VITALS: BP 144/76
[2018-08-10] MEDS: RisperiDONE 4 MG TABLET PO SCH (20:02)
[2018-08-11] MEDS: RisperiDONE 2 MG TABLET PO SCH (08:56)
[2018-08-11] MEDS: SERTRALINE HCL 50 MG TABLET PO SCH (08:57)
[2018-08-11 16:00] VITALS: BP 142/74
[2018-08-11] MEDS: RisperiDONE 4 MG TABLET PO SCH (20:20)
[2018-08-12 08:00] VITALS: BP 119/65
[2018-08-12] MEDS: SERTRALINE HCL 50 MG TABLET PO SCH (08:41)
[2018-08-12] MEDS: RisperiDONE 2 MG TABLET PO SCH (08:41)
[2018-08-12 18:00] VITALS: BP 131/87
[2018-08-12] MEDS: RisperiDONE 4 MG TABLET PO SCH (20:06)
[2018-08-13] MEDS: RisperiDONE 2 MG TABLET PO SCH (08:57)
[2018-08-13] MEDS: SERTRALINE HCL 50 MG TABLET PO SCH (08:57)
[2018-08-13 14:36] VITALS: BP 151/93
[2018-08-13] MEDS ORDERED: RISP2 PO (15:09)
[2018-08-13] MEDS ORDERED: SERT50TA12 PO (15:09)
== END 2018-08-13 17:35 | disposition home or self-care (01) | DRG 750 ==
LOC: EMS 22:43 → 3EC 07-29 02:00 → 3EI 08-02 14:51 → 3EC 08-07 17:02
PROVIDERS: ADMIT Psychiatry & Neurology Psychiatry; ATTEND Psychiatry & Neurology Psychiatry
DX: F25.0 Schizoaffective disorder, bipolar type (principal); Z59.0 Homelessness; F12.90 Cannabis use, unspecified, uncomplicated; F14.90 Cocaine use, unspecified, uncomplicated; R45.87 Impulsiveness; G47.00 Insomnia, unspecified; F17.210 Nicotine dependence, cigarettes, uncomplicated; F41.9 Anxiety disorder, unspecified; J44.9 Chronic obstructive pulmonary disease, unspecified; K21.9 Gastro-esophageal reflux disease without esophagitis; Z79.899 Other long term (current) drug therapy; Z91.5 Personal history of self-harm
CPT/HCPCS: J1200; J1630; J2060

== ENCOUNTER 2018-08-24 08:16 | Emergency (ER) | payer MEDICAID, OTHER ==
[~2018-08-24] VITALS: Ht 172.7 cm; Wt 85.9 kg
[~2018-08-24 08:16] MED LIST changes: -RISP1TAB89 PO; +RISP2 PO; -SERT25TA PO; +SERT50TA12 PO
[2018-08-24 09:00] VITALS: BP 145/80
[2018-08-24] MEDS ORDERED: IBUPROFEN 800 MG TABLET PO ONE (09:00)
== END 2018-08-24 09:21 | disposition home or self-care (01) ==
LOC: EMS 08:17
DX: S39.012A Strain of muscle, fascia and tendon of lower back, initial encounter (principal); S80.01XA Contusion of right knee, initial encounter; F41.9 Anxiety disorder, unspecified; F31.9 Bipolar disorder, unspecified; F20.9 Schizophrenia, unspecified; Z91.018 Allergy to other foods; Z79.899 Other long term (current) drug therapy; W01.0XXA Fall on same level from slipping, tripping and stumbling without subsequent striking against object, initial encounter; Y93.01 Activity, walking, marching and hiking; Y92.89 Other specified places as the place of occurrence of the external cause; Y99.8 Other external cause status

== ENCOUNTER 2018-08-31 00:02 | Inpatient (IN) | payer MEDICAID, OTHER ==
[~2018-08-31] VITALS: Ht 167.6 cm; Wt 81.7 kg
[2018-08-31 00:19] LABS: GLUCOSE,POINT OF CARE 95 MG/DL (70-110)
[2018-08-31] MEDS ORDERED: RisperiDONE 1 MG TABLET PO ONE (09:45)
[2018-08-31] MEDS ORDERED: HALOPERIDOL 5 MG TABLET PO PRN (09:45)
[2018-08-31] MEDS: RisperiDONE 4 MG TABLET PO SCH (21:14)
[2018-08-31] MEDS: ZOLPIDEM TARTRATE 10 MG TABLET PO PRN (21:14)
[2018-09-01] MEDS: SERTRALINE HCL 50 MG TABLET PO SCH (08:50)
[2018-09-01] MEDS: RisperiDONE 2 MG TABLET PO SCH (08:50)
[2018-09-01] MEDS: RisperiDONE 4 MG TABLET PO SCH (21:03)
[2018-09-02] MEDS: RisperiDONE 2 MG TABLET PO SCH (09:17)
[2018-09-02] MEDS: SERTRALINE HCL 50 MG TABLET PO SCH (09:17)
[2018-09-02] MEDS ORDERED: LORazepam 2 MG/ML VIAL IM ONE (16:15)
[2018-09-02] MEDS ORDERED: DiphenhydrAMINE HCL 50 MG/ML VIAL IM ONE (16:15)
[2018-09-02] MEDS ORDERED: HALOPERIDOL LACTATE 5 MG/ML VIAL IM ONE (16:15)
[2018-09-02 16:32] VITALS: BP 135/71
[2018-09-02] MEDS: RisperiDONE 4 MG TABLET PO SCH (21:00)
[2018-09-03] MEDS: SERTRALINE HCL 50 MG TABLET PO SCH (09:05)
[2018-09-03] MEDS: RisperiDONE 2 MG TABLET PO SCH (09:05)
[2018-09-03] MEDS ORDERED: ONDANSETRON HCL 4 MG TABLET PO PRN (14:15)
[2018-09-03] MEDS ORDERED: ALBUTEROL SULFATE HFA 90 MCG/PUFF 8 GM INHALER IH PRN (14:15)
[2018-09-03] MEDS ORDERED: CloNIDine HCL 0.1 MG TABLET PO PRN (14:15)
[2018-09-03] MEDS ORDERED: DOCUSATE SODIUM 100 MG CAPSULE PO PRN (14:15)
[2018-09-03] MEDS ORDERED: MAG HYDROX/AL HYDROX/SIMETH ES 30 ML SUSPENSION UDCUP PO PRN (14:15)
[2018-09-03] MEDS ORDERED: GuaiFENesin/D-METHORPHAN [SUGAR-FREE] 200-20MG/10 ML SYRUP UDCUP PO PRN (14:15)
[2018-09-03] MEDS ORDERED: NICOTINE 14 MG/24 HOUR PATCH TD PRN (14:15)
[2018-09-03] MEDS ORDERED: MAGNESIUM HYDROXIDE SUSPENSION 30 ML UDCUP PO PRN (14:15)
[2018-09-03] MEDS ORDERED: LOPERAMIDE HCL 2 MG CAPSULE PO PRN (14:15)
[2018-09-03] MEDS ORDERED: PETROLATUM,WHITE 28 GM JELLY TP PRN (14:15)
[2018-09-03] MEDS: RisperiDONE 4 MG TABLET PO SCH (21:00)
[2018-09-04] MEDS: SERTRALINE HCL 50 MG TABLET PO SCH (08:52)
[2018-09-04] MEDS: RisperiDONE 2 MG TABLET PO SCH (08:52)
[2018-09-04 16:19] VITALS: BP 138/87
[2018-09-04] MEDS: IBUPROFEN 400 MG TABLET PO PRN (18:00)
[2018-09-04] MEDS: RisperiDONE 4 MG TABLET PO SCH (20:20)
[2018-09-05 05:42] VITALS: BP 108/76
[2018-09-05] MEDS: RisperiDONE 2 MG TABLET PO SCH (08:42)
[2018-09-05] MEDS: SERTRALINE HCL 50 MG TABLET PO SCH (08:42)
[2018-09-05] MEDS: ACETAMINOPHEN 325 MG TABLET PO PRN (09:44)
[2018-09-05 09:47] VITALS: BP 110/76
[2018-09-05 10:44] VITALS: BP 109/77
[2018-09-05 16:12] VITALS: BP 120/61
[2018-09-05] MEDS: IBUPROFEN 400 MG TABLET PO PRN (20:17)
[2018-09-05] MEDS: RisperiDONE 4 MG TABLET PO SCH (20:17)
[2018-09-06] MEDS: RisperiDONE 2 MG TABLET PO SCH (08:54)
[2018-09-06] MEDS: SERTRALINE HCL 50 MG TABLET PO SCH (08:54)
[2018-09-06] MEDS: ZOLPIDEM TARTRATE 10 MG TABLET PO PRN (20:31)
[2018-09-06] MEDS: RisperiDONE 4 MG TABLET PO SCH (20:31)
[2018-09-07] MEDS: RisperiDONE 2 MG TABLET PO SCH (09:00)
[2018-09-07] MEDS: SERTRALINE HCL 50 MG TABLET PO SCH (09:00)
[2018-09-07 16:00] VITALS: BP 138/71
[2018-09-07] MEDS: LORazepam 2 MG TABLET PO PRN (17:56)
[2018-09-07] MEDS: IBUPROFEN 400 MG TABLET PO PRN (17:56)
[2018-09-07] MEDS: ZOLPIDEM TARTRATE 10 MG TABLET PO PRN (20:39)
[2018-09-07] MEDS: RisperiDONE 4 MG TABLET PO SCH (20:39)
[2018-09-08] MEDS: SERTRALINE HCL 50 MG TABLET PO SCH (08:41)
[2018-09-08] MEDS: RisperiDONE 2 MG TABLET PO SCH (08:41)
[2018-09-08 16:29] VITALS: BP 134/66
[2018-09-08] MEDS: LORazepam 2 MG TABLET PO PRN (21:12)
[2018-09-08] MEDS: RisperiDONE 4 MG TABLET PO SCH (21:12)
[2018-09-08] MEDS: ZOLPIDEM TARTRATE 10 MG TABLET PO PRN (21:12)
[2018-09-09] MEDS: SERTRALINE HCL 50 MG TABLET PO SCH (08:14)
[2018-09-09] MEDS: RisperiDONE 2 MG TABLET PO SCH (08:14)
[2018-09-09 16:25] VITALS: BP 116/63
[2018-09-09] MEDS: LORazepam 2 MG TABLET PO PRN (16:28)
[2018-09-09] MEDS: ACETAMINOPHEN 325 MG TABLET PO PRN (16:28)
[2018-09-09] MEDS: ZOLPIDEM TARTRATE 10 MG TABLET PO PRN (20:57)
[2018-09-09] MEDS: RisperiDONE 4 MG TABLET PO SCH (20:57)
[2018-09-10] MEDS: SERTRALINE HCL 50 MG TABLET PO SCH (09:16)
[2018-09-10] MEDS: RisperiDONE 2 MG TABLET PO SCH (09:16)
[2018-09-10 16:00] VITALS: BP 102/64
[2018-09-10] MEDS: LORazepam 2 MG TABLET PO PRN (21:34)
[2018-09-10] MEDS: ZOLPIDEM TARTRATE 10 MG TABLET PO PRN (21:34)
[2018-09-10] MEDS: RisperiDONE 4 MG TABLET PO SCH (21:34)
[2018-09-11 03:19] VITALS: BP 131/71
[2018-09-11] MEDS: RisperiDONE 2 MG TABLET PO SCH (08:37)
[2018-09-11] MEDS: SERTRALINE HCL 50 MG TABLET PO SCH (08:37)
[2018-09-11 09:29] VITALS: BP 124/75
[2018-09-11] MEDS: ZOLPIDEM TARTRATE 10 MG TABLET PO PRN (21:09)
[2018-09-11] MEDS: LORazepam 2 MG TABLET PO PRN (21:09)
[2018-09-11] MEDS: RisperiDONE 4 MG TABLET PO SCH (21:09)
[2018-09-12] MEDS: RisperiDONE 2 MG TABLET PO SCH (08:41)
[2018-09-12] MEDS: SERTRALINE HCL 50 MG TABLET PO SCH (08:41)
[2018-09-12 19:33] VITALS: BP 104/57
[2018-09-12] MEDS: LORazepam 2 MG TABLET PO PRN (20:42)
[2018-09-12] MEDS: ZOLPIDEM TARTRATE 10 MG TABLET PO PRN (20:42)
[2018-09-12] MEDS: RisperiDONE 4 MG TABLET PO SCH (20:42)
[2018-09-13 08:01] VITALS: BP 110/70
[2018-09-13] MEDS: SERTRALINE HCL 50 MG TABLET PO SCH (08:43)
[2018-09-13] MEDS: RisperiDONE 2 MG TABLET PO SCH (08:43)
[2018-09-13 16:00] VITALS: BP 116/64
[2018-09-13] MEDS: LORazepam 2 MG TABLET PO PRN ×2 (16:10→20:48)
[2018-09-13] MEDS: ZOLPIDEM TARTRATE 10 MG TABLET PO PRN (20:48)
[2018-09-13] MEDS: RisperiDONE 4 MG TABLET PO SCH (20:48)
[2018-09-14 02:44] VITALS: BP 120/75
[2018-09-14 08:27] VITALS: BP 129/77
[2018-09-14] MEDS: SERTRALINE HCL 50 MG TABLET PO SCH (08:53)
[2018-09-14] MEDS: RisperiDONE 2 MG TABLET PO SCH (08:53)
[2018-09-14 17:52] VITALS: BP 123/74
[2018-09-14] MEDS: RisperiDONE 4 MG TABLET PO SCH (20:01)
[2018-09-14] MEDS: ZOLPIDEM TARTRATE 10 MG TABLET PO PRN (20:31)
[2018-09-15 00:24] VITALS: BP 110/72
[2018-09-15] MEDS: SERTRALINE HCL 50 MG TABLET PO SCH (08:34)
[2018-09-15] MEDS: RisperiDONE 2 MG TABLET PO SCH (08:34)
[2018-09-15 16:38] VITALS: BP 107/64
[2018-09-15] MEDS: RisperiDONE 4 MG TABLET PO SCH (20:44)
[2018-09-15] MEDS: LORazepam 2 MG TABLET PO PRN (20:44)
[2018-09-15] MEDS: ZOLPIDEM TARTRATE 10 MG TABLET PO PRN (20:44)
[2018-09-16 01:36] VITALS: BP 111/79
[2018-09-16] MEDS: RisperiDONE 2 MG TABLET PO SCH (08:57)
[2018-09-16] MEDS: SERTRALINE HCL 50 MG TABLET PO SCH (08:57)
[2018-09-16 14:11] VITALS: BP 106/72
[2018-09-16] MEDS: ACETAMINOPHEN 325 MG TABLET PO PRN (14:15)
[2018-09-16 16:00] VITALS: BP 119/68
[2018-09-16] MEDS: RisperiDONE 4 MG TABLET PO SCH (20:39)
[2018-09-16] MEDS: LORazepam 2 MG TABLET PO PRN (20:39)
[2018-09-16] MEDS: ZOLPIDEM TARTRATE 10 MG TABLET PO PRN (20:39)
[2018-09-17 08:27] VITALS: BP 105/63
[2018-09-17] MEDS: SERTRALINE HCL 50 MG TABLET PO SCH (08:35)
[2018-09-17] MEDS: RisperiDONE 2 MG TABLET PO SCH (08:35)
[2018-09-17] MEDS ORDERED: RISP2 PO (16:35)
[2018-09-17] MEDS ORDERED: RISP4 PO (16:35)
[2018-09-17] MEDS ORDERED: SERT50TA12 PO (16:35)
[2018-09-17 16:38] VITALS: BP 126/70
== END 2018-09-17 19:33 | disposition home or self-care (01) | DRG 750 ==
LOC: EMS 00:05 → B3A 10:11
PROVIDERS: ADMIT Psychiatry & Neurology Psychiatry; ATTEND Psychiatry & Neurology Psychiatry
DX: F25.0 Schizoaffective disorder, bipolar type (principal); R45.851 Suicidal ideations; Z59.0 Homelessness; F41.9 Anxiety disorder, unspecified; F10.10 Alcohol abuse, uncomplicated; F11.90 Opioid use, unspecified, uncomplicated; F15.90 Other stimulant use, unspecified, uncomplicated; K21.9 Gastro-esophageal reflux disease without esophagitis; F17.210 Nicotine dependence, cigarettes, uncomplicated; F32.9 Major depressive disorder, single episode, unspecified; J44.9 Chronic obstructive pulmonary disease, unspecified; Z79.899 Other long term (current) drug therapy; Z91.19 Patient's noncompliance with other medical treatment and regimen; Z91.5 Personal history of self-harm; Z71.6 Tobacco abuse counseling; Z71.41 Alcohol abuse counseling and surveillance of alcoholic; Z71.51 Drug abuse counseling and surveillance of drug abuser; Z91.018 Allergy to other foods
CPT/HCPCS: 99406; J1200; J1630; J2060

== ENCOUNTER 2018-09-30 11:43 | Inpatient (IN) | payer MEDICAID, OTHER ==
[~2018-09-30] VITALS: Ht 165.1 cm; Wt 78.0 kg
[~2018-09-30 11:43] MED LIST changes: -RISP2TAB76 PO; +RISP4 PO
[2018-09-30 12:43] LABS: APPEARANCE,URINE CLEAR (CLEAR); BILIRUBIN,URINE NEGATIVE (NEGATIVE); GLUCOSE, URINE (UA) NEGATIVE (NEGATIVE); KETONES,URINE NEGATIVE (NEGATIVE); LEUKOCYTE ESTERASE ,URINE NEGATIVE (NEGATIVE); NITRATE,URINE NEGATIVE (NEGATIVE); OCCULT BLOOD,URINE NEGATIVE (NEGATIVE); PROTEIN,URINE NEGATIVE (NEGATIVE); UROBILINOGEN,URINE 0.2 mg/dL (<=1.0)
[2018-09-30 12:46] LABS: AMPHET/METH SCREEN,URINE NEGATIVE (NEGATIVE); BARBITURATE SCREEN, URINE NEGATIVE (NEGATIVE); BENZODIAZEPINES SCREEN,URINE NEGATIVE (NEGATIVE); CANNABINOID SCREEN,URINE NEGATIVE (NEGATIVE); COCAINE SCREEN,URINE POSITIVE (NEGATIVE); METHADONE SCREEN, URINE NEGATIVE (NEGATIVE); OPIATE SCREEN,URINE NEGATIVE (NEGATIVE); PHENCYCLIDINE SCREEN,URINE NEGATIVE (NEGATIVE)
[2018-09-30 13:16] LABS: BASOPHILS % (AUTO) 0.7 % (0.0-2.0); EOSINOPHILS % (AUTO) 0.7 % (1.0-6.0); HEMATOCRIT 38.8 % (41-53); HEMOGLOBIN 12.9 g/dL (13.5-17.5); LYMPHOCYTES # (AUTO) 1.8 K/uL (1.0-4.8); LYMPHOCYTES % (AUTO) 26.9 % (22.0-44.0); MEAN CORPUSCULAR HEMOGLOBIN 26.8 pg (26.0-34.0); MEAN CORPUSCULAR HGB CONC 33.3 G/dL (31.0-37.0); MEAN CORPUSCULAR VOLUME 81 fL (80-100); MONOCYTES # (AUTO) 0.4 K/uL (0.1-1.0); NEUTROPHILS # (AUTO) 4.4 K/uL (1.8-7.7); NEUTROPHILS % (AUTO) 65.7 % (40.0-70.0); PLATELET COUNT (AUTO) 291 K/uL (150-450); RED BLOOD CELL COUNT(AUTO) 4.82 MIL/uL (4.50-5.90); RED CELL DISTRIBUTION WIDTH 15.4 % (11.5-14.5)
[2018-09-30 13:25] LABS: ANION GAP 5 mmol/L (8-16); CALCIUM, TOTAL 8.9 mg/dL (8.8-10.5); CARBON DIOXIDE 32 mmol/L (22-29); CHLORIDE 107 mmol/L (98-107); CREATININE 1.15 mg/dL (0.60-1.30); GLOMERULAR FILTR. RATE CALC > 60 mL/min (>60); GLUCOSE,RANDOM 78 mg/dL (70-110); SODIUM SERUM 144 mmol/L (136-145); UREA NITROGEN, BLOOD 8 mg/dL (7-18)
[2018-09-30 13:33] LABS: ALANINE AMINOTRANSFERASE 17 U/L (12-78); ALBUMIN 3.1 g/dL (3.4-5.0); ALKALINE PHOSPHATASE 83 U/L (46-116); ASPARTATE AMINOTRANSFERASE 12 U/L (15-37); BILIRUBIN,TOTAL 0.5 mg/dL (0.1-1.0); TOTAL PROTEIN, SERUM 6.1 g/dL (6.4-8.2)
[2018-09-30] MEDS ORDERED: HALOPERIDOL 5 MG TABLET PO PRN (15:00)
[2018-09-30 17:55] VITALS: BP 138/94
[2018-09-30] MEDS ORDERED: ONDANSETRON HCL 4 MG TABLET PO PRN (18:00)
[2018-09-30] MEDS ORDERED: CloNIDine HCL 0.1 MG TABLET PO PRN (18:00)
[2018-09-30] MEDS ORDERED: GuaiFENesin/D-METHORPHAN [SUGAR-FREE] 200-20MG/10 ML SYRUP UDCUP PO PRN (18:00)
[2018-09-30] MEDS ORDERED: PETROLATUM,WHITE 28 GM JELLY TP PRN (18:00)
[2018-09-30] MEDS ORDERED: MAG HYDROX/AL HYDROX/SIMETH ES 30 ML SUSPENSION UDCUP PO PRN (18:00)
[2018-09-30] MEDS ORDERED: NICOTINE 14 MG/24 HOUR PATCH TD PRN (18:00)
[2018-09-30] MEDS ORDERED: MAGNESIUM HYDROXIDE SUSPENSION 30 ML UDCUP PO PRN (18:00)
[2018-09-30] MEDS ORDERED: LOPERAMIDE HCL 2 MG CAPSULE PO PRN (18:00)
[2018-09-30] MEDS ORDERED: DOCUSATE SODIUM 100 MG CAPSULE PO PRN (18:00)
[2018-09-30] MEDS ORDERED: IBUPROFEN 400 MG TABLET PO PRN (18:00)
[2018-09-30] MEDS ORDERED: ACETAMINOPHEN 325 MG TABLET PO PRN (18:00)
[2018-09-30] MEDS ORDERED: ALBUTEROL SULFATE HFA 90 MCG/PUFF 8 GM INHALER IH PRN (18:00)
[2018-09-30] MEDS: RisperiDONE 4 MG TABLET PO SCH (20:27)
[2018-09-30] MEDS: ZOLPIDEM TARTRATE 10 MG TABLET PO PRN (20:27)
[2018-10-01] MEDS: RisperiDONE 2 MG TABLET PO SCH (08:19)
[2018-10-01] MEDS: LORazepam 2 MG TABLET PO PRN ×2 (08:19→20:41)
[2018-10-01] MEDS: SERTRALINE HCL 100 MG TABLET PO SCH (08:19)
[2018-10-01 16:23] VITALS: BP 132/69
[2018-10-01] MEDS: RisperiDONE 4 MG TABLET PO SCH (20:41)
[2018-10-02] MEDS: RisperiDONE 2 MG TABLET PO SCH (09:20)
[2018-10-02] MEDS: SERTRALINE HCL 100 MG TABLET PO SCH (09:20)
[2018-10-02] MEDS: RisperiDONE 4 MG TABLET PO SCH (20:41)
[2018-10-02] MEDS: ZOLPIDEM TARTRATE 10 MG TABLET PO PRN (20:42)
[2018-10-03] MEDS: SERTRALINE HCL 100 MG TABLET PO SCH (08:31)
[2018-10-03] MEDS: RisperiDONE 2 MG TABLET PO SCH (08:31)
[2018-10-03 16:35] VITALS: BP 120/65
[2018-10-03] MEDS: RisperiDONE 4 MG TABLET PO SCH (20:37)
[2018-10-03] MEDS: ZOLPIDEM TARTRATE 10 MG TABLET PO PRN (20:37)
[2018-10-04 01:21] VITALS: BP 121/70
[2018-10-04] MEDS: SERTRALINE HCL 100 MG TABLET PO SCH (08:53)
[2018-10-04] MEDS: RisperiDONE 2 MG TABLET PO SCH (08:53)
[2018-10-04 16:00] VITALS: BP 107/66
[2018-10-04] MEDS: LORazepam 2 MG TABLET PO PRN ×2 (17:19→21:32)
[2018-10-04] MEDS: RisperiDONE 4 MG TABLET PO SCH (21:32)
[2018-10-04] MEDS: ZOLPIDEM TARTRATE 10 MG TABLET PO PRN (21:42)
[2018-10-05 04:58] VITALS: BP 114/77
[2018-10-05] MEDS: RisperiDONE 2 MG TABLET PO SCH (09:01)
[2018-10-05] MEDS: SERTRALINE HCL 100 MG TABLET PO SCH (09:01)
[2018-10-05 16:24] VITALS: BP 100/62
[2018-10-05] MEDS: LORazepam 2 MG TABLET PO PRN (17:18)
[2018-10-05] MEDS: ZOLPIDEM TARTRATE 10 MG TABLET PO PRN (20:53)
[2018-10-05] MEDS: RisperiDONE 4 MG TABLET PO SCH (20:53)
[2018-10-06] MEDS: SERTRALINE HCL 100 MG TABLET PO SCH (09:08)
[2018-10-06] MEDS: RisperiDONE 2 MG TABLET PO SCH (09:08)
[2018-10-06 16:22] VITALS: BP 106/60
[2018-10-06] MEDS: LORazepam 2 MG TABLET PO PRN (18:08)
[2018-10-06] MEDS: RisperiDONE 4 MG TABLET PO SCH (20:53)
[2018-10-06] MEDS: ZOLPIDEM TARTRATE 10 MG TABLET PO PRN (20:53)
[2018-10-07 06:06] VITALS: BP 95/59
[2018-10-07] MEDS: RisperiDONE 2 MG TABLET PO SCH (08:41)
[2018-10-07] MEDS: LORazepam 2 MG TABLET PO PRN ×2 (08:41→17:00)
[2018-10-07] MEDS: SERTRALINE HCL 100 MG TABLET PO SCH (08:41)
[2018-10-07 09:35] LABS: CHOL/HDL RATIO 2.3 (4.2-7.3); THYROID STIMULATING HORMONE 1.87 uIU/mL (0.36-3.74)
[2018-10-07 16:00] VITALS: BP 135/68
[2018-10-07 16:59] VITALS: BP 135/68
[2018-10-07] MEDS: RisperiDONE 4 MG TABLET PO SCH (21:42)
[2018-10-07] MEDS: ZOLPIDEM TARTRATE 10 MG TABLET PO PRN (21:42)
[2018-10-08] MEDS: LORazepam 2 MG TABLET PO PRN (09:01)
[2018-10-08] MEDS: RisperiDONE 2 MG TABLET PO SCH (09:01)
[2018-10-08] MEDS: SERTRALINE HCL 100 MG TABLET PO SCH (09:01)
[2018-10-08] MEDS: RisperiDONE 4 MG TABLET PO SCH (20:40)
[2018-10-08] MEDS: ZOLPIDEM TARTRATE 10 MG TABLET PO PRN (20:40)
[2018-10-09] MEDS: RisperiDONE 2 MG TABLET PO SCH (08:38)
[2018-10-09] MEDS: SERTRALINE HCL 100 MG TABLET PO SCH (08:38)
[2018-10-09 16:09] VITALS: BP 119/67
[2018-10-09] MEDS: LORazepam 2 MG TABLET PO PRN (17:03)
[2018-10-09] MEDS: ZOLPIDEM TARTRATE 10 MG TABLET PO PRN (20:55)
[2018-10-09] MEDS: RisperiDONE 4 MG TABLET PO SCH (20:55)
[2018-10-10] MEDS: RisperiDONE 2 MG TABLET PO SCH (08:38)
[2018-10-10] MEDS: SERTRALINE HCL 100 MG TABLET PO SCH (08:38)
[2018-10-10 16:10] VITALS: BP 115/60
[2018-10-10] MEDS: LORazepam 2 MG TABLET PO PRN (16:15)
[2018-10-10] MEDS: ZOLPIDEM TARTRATE 10 MG TABLET PO PRN (20:36)
[2018-10-10] MEDS: RisperiDONE 4 MG TABLET PO SCH (20:36)
[2018-10-11 04:11] VITALS: BP 112/72
[2018-10-11] MEDS: RisperiDONE 2 MG TABLET PO SCH (08:49)
[2018-10-11] MEDS: SERTRALINE HCL 100 MG TABLET PO SCH (08:49)
[2018-10-11 16:27] VITALS: BP 102/64
[2018-10-11] MEDS: LORazepam 2 MG TABLET PO PRN ×2 (16:46→20:46)
[2018-10-11] MEDS: ZOLPIDEM TARTRATE 10 MG TABLET PO PRN (20:45)
[2018-10-11] MEDS: RisperiDONE 4 MG TABLET PO SCH (20:45)
[2018-10-12 03:02] VITALS: BP 122/76
[2018-10-12] MEDS: SERTRALINE HCL 100 MG TABLET PO SCH (08:39)
[2018-10-12] MEDS: RisperiDONE 2 MG TABLET PO SCH (08:39)
== END 2018-10-12 11:40 | disposition home or self-care (01) | DRG 750 ==
LOC: EMS 11:44 → B3A 15:58 → 3EC 18:25 → B3A 18:44
PROVIDERS: ADMIT Psychiatry & Neurology Psychiatry; ATTEND Psychiatry & Neurology Psychiatry
DX: F25.0 Schizoaffective disorder, bipolar type (principal); E88.09 Other disorders of plasma-protein metabolism, not elsewhere classified; R45.851 Suicidal ideations; D64.9 Anemia, unspecified; F10.10 Alcohol abuse, uncomplicated; F11.90 Opioid use, unspecified, uncomplicated; F12.90 Cannabis use, unspecified, uncomplicated; F17.210 Nicotine dependence, cigarettes, uncomplicated; F14.90 Cocaine use, unspecified, uncomplicated; F15.90 Other stimulant use, unspecified, uncomplicated; F32.9 Major depressive disorder, single episode, unspecified; F41.9 Anxiety disorder, unspecified; J44.9 Chronic obstructive pulmonary disease, unspecified; K21.9 Gastro-esophageal reflux disease without esophagitis; Z59.0 Homelessness; Z91.5 Personal history of self-harm; Z91.018 Allergy to other foods; Z71.41 Alcohol abuse counseling and surveillance of alcoholic; Z71.51 Drug abuse counseling and surveillance of drug abuser
CPT/HCPCS: 84443; 87081; G0480; Q0162

== ENCOUNTER 2018-11-29 02:01 | Inpatient (IN) | payer MEDICAID, OTHER ==
[~2018-11-29] VITALS: Ht 162.6 cm; Wt 78.3 kg
[2018-11-29] MEDS ORDERED: antidepressant PO (02:17)
[2018-11-29] MEDS ORDERED: ZIPR20CA2 PO (02:17)
[2018-11-29] MEDS ORDERED: MIRT15 PO (02:17)
[2018-11-29 03:22] LABS: AMPHET/METH SCREEN,URINE POSITIVE (NEGATIVE); BARBITURATE SCREEN, URINE NEGATIVE (NEGATIVE); BENZODIAZEPINES SCREEN,URINE NEGATIVE (NEGATIVE); CANNABINOID SCREEN,URINE NEGATIVE (NEGATIVE); COCAINE SCREEN,URINE NEGATIVE (NEGATIVE); METHADONE SCREEN, URINE NEGATIVE (NEGATIVE); OPIATE SCREEN,URINE NEGATIVE (NEGATIVE); PHENCYCLIDINE SCREEN,URINE NEGATIVE (NEGATIVE)
[2018-11-29] MEDS ORDERED: ZOLPIDEM TARTRATE 10 MG TABLET PO PRN (05:15)
[2018-11-29] MEDS ORDERED: HALOPERIDOL 5 MG TABLET PO PRN (05:15)
[2018-11-29] MEDS ORDERED: LORazepam 2 MG TABLET PO PRN (05:15)
[2018-11-29] MEDS: RisperiDONE 4 MG TABLET PO SCH (20:45)
[2018-11-30 00:48] VITALS: BP 101/59
[2018-11-30] MEDS ORDERED: PNEUMOCOCCAL VACCINE POLYVALENT 0.5 ML VIAL [PPSV23] IM ONE (01:30)
[2018-11-30] MEDS: RisperiDONE 2 MG TABLET PO SCH (09:18)
[2018-11-30] MEDS: CITALOPRAM HYDROBROMIDE 20 MG TABLET PO SCH (09:19)
[2018-11-30] MEDS ORDERED: DOCUSATE SODIUM 100 MG CAPSULE PO PRN (20:15)
[2018-11-30] MEDS ORDERED: MAG HYDROX/AL HYDROX/SIMETH ES 30 ML SUSPENSION UDCUP PO PRN (20:15)
[2018-11-30] MEDS ORDERED: ACETAMINOPHEN 325 MG TABLET PO PRN (20:15)
[2018-11-30] MEDS ORDERED: MAGNESIUM HYDROXIDE SUSPENSION 30 ML UDCUP PO PRN (20:15)
[2018-11-30] MEDS ORDERED: LOPERAMIDE HCL 2 MG CAPSULE PO PRN (20:15)
[2018-11-30] MEDS ORDERED: ALBUTEROL SULFATE HFA 90 MCG/PUFF 8 GM INHALER IH PRN (20:15)
[2018-11-30] MEDS ORDERED: NICOTINE 14 MG/24 HOUR PATCH TD PRN (20:15)
[2018-11-30] MEDS ORDERED: PETROLATUM,WHITE 28 GM JELLY TP PRN (20:15)
[2018-11-30] MEDS ORDERED: GuaiFENesin/D-METHORPHAN [SUGAR-FREE] 200-20MG/10 ML SYRUP UDCUP PO PRN (20:15)
[2018-11-30] MEDS ORDERED: ONDANSETRON HCL 4 MG TABLET PO PRN (20:15)
[2018-11-30] MEDS ORDERED: CloNIDine HCL 0.1 MG TABLET PO PRN (20:15)
[2018-11-30] MEDS: RisperiDONE 4 MG TABLET PO SCH (21:30)
[2018-12-01] MEDS: RisperiDONE 2 MG TABLET PO SCH (08:45)
[2018-12-01] MEDS: CITALOPRAM HYDROBROMIDE 20 MG TABLET PO SCH (08:45)
[2018-12-01] MEDS: RisperiDONE 4 MG TABLET PO SCH (20:13)
[2018-12-02] MEDS: CITALOPRAM HYDROBROMIDE 20 MG TABLET PO SCH (09:01)
[2018-12-02] MEDS: RisperiDONE 2 MG TABLET PO SCH (09:02)
[2018-12-02 17:04] VITALS: BP 117/73
[2018-12-02] MEDS: RisperiDONE 4 MG TABLET PO SCH (21:53)
[2018-12-03] MEDS: RisperiDONE 2 MG TABLET PO SCH (09:12)
[2018-12-03] MEDS: CITALOPRAM HYDROBROMIDE 20 MG TABLET PO SCH (09:12)
[2018-12-03] MEDS: RisperiDONE 4 MG TABLET PO SCH (20:05)
[2018-12-04 08:43] VITALS: BP 105/61
[2018-12-04] MEDS: CITALOPRAM HYDROBROMIDE 20 MG TABLET PO SCH (09:19)
[2018-12-04] MEDS: RisperiDONE 2 MG TABLET PO SCH (09:19)
[2018-12-04 16:24] VITALS: BP 106/70
[2018-12-04] MEDS: RisperiDONE 4 MG TABLET PO SCH (21:43)
[2018-12-05] MEDS: RisperiDONE 2 MG TABLET PO SCH (08:51)
[2018-12-05] MEDS: CITALOPRAM HYDROBROMIDE 20 MG TABLET PO SCH (08:51)
[2018-12-05 16:00] VITALS: BP 120/80
[2018-12-05] MEDS: RisperiDONE 4 MG TABLET PO SCH (20:00)
[2018-12-06] MEDS: CITALOPRAM HYDROBROMIDE 20 MG TABLET PO SCH (08:13)
[2018-12-06] MEDS: RisperiDONE 2 MG TABLET PO SCH (08:13)
[2018-12-06 10:11] VITALS: BP 113/84
[2018-12-06 16:50] VITALS: BP 121/74
[2018-12-06] MEDS: RisperiDONE 4 MG TABLET PO SCH (20:27)
[2018-12-07] MEDS: CITALOPRAM HYDROBROMIDE 20 MG TABLET PO SCH (08:40)
[2018-12-07] MEDS: RisperiDONE 2 MG TABLET PO SCH (08:40)
[2018-12-07 16:00] VITALS: BP 127/85
[2018-12-07] MEDS: RisperiDONE 4 MG TABLET PO SCH (20:14)
[2018-12-08] MEDS: RisperiDONE 2 MG TABLET PO SCH (08:40)
[2018-12-08] MEDS: CITALOPRAM HYDROBROMIDE 20 MG TABLET PO SCH (08:40)
[2018-12-08] MEDS ORDERED: CITA-106 PO (16:45)
[2018-12-08] MEDS ORDERED: RISP2 PO (16:46)
[2018-12-08] MEDS ORDERED: RISP4 PO (16:47)
[2018-12-08 17:40] VITALS: BP 113/70
== END 2018-12-08 18:30 | DRG 750 ==
LOC: EMS 02:03 → 3EC 11-30 00:01
PROVIDERS: ADMIT Psychiatry & Neurology Psychiatry; ATTEND Psychiatry & Neurology Psychiatry
DX: F25.0 Schizoaffective disorder, bipolar type (principal); R45.851 Suicidal ideations; Z59.0 Homelessness; F41.9 Anxiety disorder, unspecified; F17.210 Nicotine dependence, cigarettes, uncomplicated; R45.87 Impulsiveness; F11.90 Opioid use, unspecified, uncomplicated; F12.90 Cannabis use, unspecified, uncomplicated; F14.90 Cocaine use, unspecified, uncomplicated; J44.9 Chronic obstructive pulmonary disease, unspecified; F10.10 Alcohol abuse, uncomplicated; R41.843 Psychomotor deficit; F15.10 Other stimulant abuse, uncomplicated; Y90.9 Presence of alcohol in blood, level not specified; Z71.6 Tobacco abuse counseling; Z71.51 Drug abuse counseling and surveillance of drug abuser; Z91.5 Personal history of self-harm; Z88.6 Allergy status to analgesic agent; Z91.018 Allergy to other foods; Z91.048 Other nonmedicinal substance allergy status
CPT/HCPCS: 99406

== ENCOUNTER 2019-01-13 02:13 | Inpatient (IN) | payer MEDICAID, OTHER ==
[~2019-01-13] VITALS: Ht 162.6 cm; Wt 78.7 kg
[~2019-01-13 02:13] MED LIST changes: +CITA-106 PO; -SERT50TA12 PO
[2019-01-13] MEDS ORDERED: ARIP2 PO (02:20)
[2019-01-13 03:06] LABS: ANION GAP 8 mmol/L (8-16); CALCIUM, TOTAL 9.3 mg/dL (8.8-10.5); CARBON DIOXIDE 29 mmol/L (22-29); CHLORIDE 106 mmol/L (98-107); CREATININE 1.12 mg/dL (0.60-1.30); GLOMERULAR FILTR. RATE CALC > 60 mL/min (>60); GLUCOSE,RANDOM 101 mg/dL (70-110); POTASSIUM 3.8 mmol/L (3.5-5.1); SODIUM SERUM 143 mmol/L (136-145); UREA NITROGEN, BLOOD 10 mg/dL (7-18)
[2019-01-13 03:13] LABS: ALANINE AMINOTRANSFERASE 27 U/L (12-78); ALBUMIN 3.1 g/dL (3.4-5.0); ALKALINE PHOSPHATASE 99 U/L (46-116); ASPARTATE AMINOTRANSFERASE 15 U/L (15-37); BILIRUBIN,TOTAL 0.4 mg/dL (0.1-1.0); TOTAL PROTEIN, SERUM 6.7 g/dL (6.4-8.2)
[2019-01-13 03:15] LABS: BASOPHILS % (AUTO) 0.4 % (0.0-2.0); EOSINOPHILS % (AUTO) 1.1 % (1.0-6.0); HEMATOCRIT 40.3 % (41-53); HEMOGLOBIN 13.2 g/dL (13.5-17.5); LYMPHOCYTES # (AUTO) 2.7 K/uL (1.0-4.8); MEAN CORPUSCULAR HEMOGLOBIN 26.3 pg (26.0-34.0); MEAN CORPUSCULAR HGB CONC 32.6 G/dL (31.0-37.0); MEAN CORPUSCULAR VOLUME 81 fL (80-100); MONOCYTES # (AUTO) 0.5 K/uL (0.1-1.0); MONOCYTES % (AUTO) 6.4 % (2.0-9.0); NEUTROPHILS # (AUTO) 4.6 K/uL (1.8-7.7); NEUTROPHILS % (AUTO) 58.1 % (40.0-70.0); PLATELET COUNT (AUTO) 303 K/uL (150-450); RED CELL DISTRIBUTION WIDTH 14.4 % (11.5-14.5)
[2019-01-13 05:45] LABS: AMPHET/METH SCREEN,URINE POSITIVE (NEGATIVE); BARBITURATE SCREEN, URINE NEGATIVE (NEGATIVE); BENZODIAZEPINES SCREEN,URINE NEGATIVE (NEGATIVE); CANNABINOID SCREEN,URINE NEGATIVE (NEGATIVE); COCAINE SCREEN,URINE NEGATIVE (NEGATIVE); METHADONE SCREEN, URINE NEGATIVE (NEGATIVE); OPIATE SCREEN,URINE NEGATIVE (NEGATIVE); PHENCYCLIDINE SCREEN,URINE NEGATIVE (NEGATIVE)
[2019-01-13] MEDS ORDERED: HALOPERIDOL 5 MG TABLET PO PRN (08:15)
[2019-01-13] MEDS ORDERED: ACETAMINOPHEN 325 MG TABLET PO PRN ×2 (08:15→13:00)
[2019-01-13] MEDS ORDERED: PNEUMOCOCCAL VACCINE POLYVALENT 0.5 ML VIAL [PPSV23] IM ONE (11:00)
[2019-01-13] MEDS ORDERED: LOPERAMIDE HCL 2 MG CAPSULE PO PRN (13:00)
[2019-01-13] MEDS ORDERED: MAGNESIUM HYDROXIDE SUSPENSION 30 ML UDCUP PO PRN (13:00)
[2019-01-13] MEDS ORDERED: ONDANSETRON HCL 4 MG TABLET PO PRN (13:00)
[2019-01-13] MEDS ORDERED: MAG HYDROX/AL HYDROX/SIMETH ES 30 ML SUSPENSION UDCUP PO PRN (13:00)
[2019-01-13] MEDS ORDERED: NICOTINE 14 MG/24 HOUR PATCH TD PRN (13:00)
[2019-01-13] MEDS ORDERED: CloNIDine HCL 0.1 MG TABLET PO PRN (13:00)
[2019-01-13] MEDS ORDERED: GuaiFENesin/D-METHORPHAN [SUGAR-FREE] 200-20MG/10 ML SYRUP UDCUP PO PRN (13:00)
[2019-01-13] MEDS ORDERED: ALBUTEROL SULFATE HFA 90 MCG/PUFF 8 GM INHALER IH PRN (13:00)
[2019-01-13] MEDS ORDERED: PETROLATUM,WHITE 28 GM JELLY TP PRN (13:00)
[2019-01-13] MEDS ORDERED: DOCUSATE SODIUM 100 MG CAPSULE PO PRN (13:00)
[2019-01-13] MEDS: RisperiDONE 4 MG TABLET PO SCH (20:38)
[2019-01-13] MEDS: LORazepam 2 MG TABLET PO PRN (20:39)
[2019-01-14] MEDS: CITALOPRAM HYDROBROMIDE 20 MG TABLET PO SCH (09:20)
[2019-01-14] MEDS: RisperiDONE 2 MG TABLET PO SCH (09:20)
[2019-01-14 16:00] VITALS: BP 113/67
[2019-01-14] MEDS: LORazepam 2 MG TABLET PO PRN (20:17)
[2019-01-14] MEDS: RisperiDONE 4 MG TABLET PO SCH (20:17)
[2019-01-15] MEDS: RisperiDONE 2 MG TABLET PO SCH (09:12)
[2019-01-15] MEDS: LORazepam 2 MG TABLET PO PRN ×2 (09:12→15:58)
[2019-01-15] MEDS: CITALOPRAM HYDROBROMIDE 20 MG TABLET PO SCH (09:13)
[2019-01-15 16:00] VITALS: BP 135/71
[2019-01-15] MEDS: RisperiDONE 4 MG TABLET PO SCH (20:33)
[2019-01-15] MEDS: ZOLPIDEM TARTRATE 10 MG TABLET PO PRN (20:33)
[2019-01-16] MEDS: CITALOPRAM HYDROBROMIDE 20 MG TABLET PO SCH (08:08)
[2019-01-16] MEDS: RisperiDONE 2 MG TABLET PO SCH (08:08)
[2019-01-16 16:03] VITALS: BP 127/62
[2019-01-16] MEDS: LORazepam 2 MG TABLET PO PRN (17:39)
[2019-01-16] MEDS: ZOLPIDEM TARTRATE 10 MG TABLET PO PRN (20:46)
[2019-01-16] MEDS: RisperiDONE 4 MG TABLET PO SCH (20:46)
[2019-01-16] MEDS ORDERED: ONDANSETRON HCL 4 MG/2 ML VIAL IM ONE (21:06)
[2019-01-17] MEDS: CITALOPRAM HYDROBROMIDE 20 MG TABLET PO SCH (08:18)
[2019-01-17] MEDS: RisperiDONE 2 MG TABLET PO SCH (08:19)
[2019-01-17 16:00] VITALS: BP 112/68
[2019-01-17] MEDS: LORazepam 2 MG TABLET PO PRN (16:00)
[2019-01-17] MEDS: ZOLPIDEM TARTRATE 10 MG TABLET PO PRN (20:37)
[2019-01-17] MEDS: RisperiDONE 4 MG TABLET PO SCH (20:37)
[2019-01-18 06:52] VITALS: BP 108/66
[2019-01-18 06:53] VITALS: BP 118/64
== END 2019-01-18 07:20 | disposition home or self-care (01) | DRG 750 ==
LOC: EMS 02:14 → B3A 09:15 → EMS 09:45 → B3A 21:13
PROVIDERS: ADMIT Psychiatry & Neurology Psychiatry; ATTEND Psychiatry & Neurology Psychiatry
DX: F25.0 Schizoaffective disorder, bipolar type (principal); R45.851 Suicidal ideations; Z59.0 Homelessness; F10.10 Alcohol abuse, uncomplicated; F11.10 Opioid abuse, uncomplicated; F17.210 Nicotine dependence, cigarettes, uncomplicated; F14.10 Cocaine abuse, uncomplicated; F12.10 Cannabis abuse, uncomplicated; D64.9 Anemia, unspecified; F41.9 Anxiety disorder, unspecified; J44.9 Chronic obstructive pulmonary disease, unspecified; Z79.899 Other long term (current) drug therapy; Z91.5 Personal history of self-harm; Z88.5 Allergy status to narcotic agent; Z91.018 Allergy to other foods; Z71.51 Drug abuse counseling and surveillance of drug abuser; Z71.41 Alcohol abuse counseling and surveillance of alcoholic; Z71.6 Tobacco abuse counseling
CPT/HCPCS: G0480; J2405

== ENCOUNTER 2019-02-05 03:55 | Emergency (ER) | payer MEDICAID, OTHER | END 2019-02-05 04:45 | disposition left against medical advice (07) | LOC: EMS 03:58 | DX: M54.9 Dorsalgia, unspecified (principal); Z53.21 Procedure and treatment not carried out due to patient leaving prior to being seen by health care provider ==

== ENCOUNTER 2019-02-07 00:02 | Emergency (ER) | payer OTHER ==
[~2019-02-07] VITALS: Ht 162.6 cm; Wt 78.7 kg
[2019-02-07 02:53] LABS: BASOPHILS % (AUTO) 0.6 % (0.0-2.0); EOSINOPHILS % (AUTO) 0.8 % (1.0-6.0); HEMATOCRIT 39.8 % (41-53); HEMOGLOBIN 13.5 g/dL (13.5-17.5); LYMPHOCYTES # (AUTO) 2.7 K/uL (1.0-4.8); MEAN CORPUSCULAR HEMOGLOBIN 27.1 pg (26.0-34.0); MEAN CORPUSCULAR HGB CONC 33.8 G/dL (31.0-37.0); MEAN CORPUSCULAR VOLUME 80 fL (80-100); MONOCYTES # (AUTO) 0.8 K/uL (0.1-1.0); MONOCYTES % (AUTO) 7.2 % (2.0-9.0); NEUTROPHILS % (AUTO) 68.4 % (40.0-70.0); PLATELET COUNT (AUTO) 313 K/uL (150-450); RED BLOOD CELL COUNT(AUTO) 4.98 MIL/uL (4.50-5.90); RED CELL DISTRIBUTION WIDTH 15.4 % (11.5-14.5)
[2019-02-07 02:55] LABS: ALANINE AMINOTRANSFERASE 18 U/L (12-78); ALBUMIN 4.2 g/dL (3.4-5.0); ALKALINE PHOSPHATASE 124 U/L (46-116); ASPARTATE AMINOTRANSFERASE 18 U/L (15-37); BILIRUBIN,TOTAL 1.6 mg/dL (0.1-1.0); CALCIUM, TOTAL 9.7 mg/dL (8.8-10.5); CARBON DIOXIDE 28 mmol/L (22-29); CREATININE 1.25 mg/dL (0.60-1.30); GLOMERULAR FILTR. RATE CALC > 60 mL/min (>60); GLUCOSE,RANDOM 101 mg/dL (70-110); TOTAL PROTEIN, SERUM 7.4 g/dL (6.4-8.2); UREA NITROGEN, BLOOD 13 mg/dL (7-18)
[2019-02-07 03:00] LABS: ANION GAP 8 mmol/L (8-16); CHLORIDE 102 mmol/L (98-107); POTASSIUM 3.6 mmol/L (3.5-5.1); SODIUM SERUM 138 mmol/L (136-145)
[2019-02-07] MEDS ORDERED: LORazepam 2 MG TABLET PO ONE (03:00)
[2019-02-07] MEDS ORDERED: DiphenhydrAMINE HCL 25 MG CAPSULE PO ONE (03:00)
[2019-02-07] MEDS ORDERED: RisperiDONE 1 MG TABLET PO ONE (03:00)
[2019-02-07 03:01] LABS: AMPHET/METH SCREEN,URINE POSITIVE (NEGATIVE); BARBITURATE SCREEN, URINE NEGATIVE (NEGATIVE); BENZODIAZEPINES SCREEN,URINE NEGATIVE (NEGATIVE); CANNABINOID SCREEN,URINE POSITIVE (NEGATIVE); COCAINE SCREEN,URINE POSITIVE (NEGATIVE); METHADONE SCREEN, URINE NEGATIVE (NEGATIVE); OPIATE SCREEN,URINE NEGATIVE (NEGATIVE); PHENCYCLIDINE SCREEN,URINE NEGATIVE (NEGATIVE)
[2019-02-07] MEDS ORDERED: LORazepam 2 MG TABLET PO PRN (03:15)
[2019-02-07] MEDS ORDERED: HALOPERIDOL 5 MG TABLET PO PRN (03:15)
[2019-02-07] MEDS ORDERED: ZOLPIDEM TARTRATE 10 MG TABLET PO PRN (03:15)
[2019-02-07 04:37] LABS: APPEARANCE,URINE CLOUDY (CLEAR); GLUCOSE, URINE (UA) NEGATIVE (NEGATIVE); KETONES,URINE NEGATIVE (NEGATIVE); LEUKOCYTE ESTERASE ,URINE NEGATIVE (NEGATIVE); NITRATE,URINE NEGATIVE (NEGATIVE); OCCULT BLOOD,URINE NEGATIVE (NEGATIVE); PROTEIN,URINE NEGATIVE (NEGATIVE)
[2019-02-07 04:55] LABS: BILIRUBIN,URINE PRELIM. POSITIVE (NEGATIVE)
[2019-02-07 05:03] LABS: BACTERIA,URINE Few /HPF (None Seen); RBC,URINE None Seen /HPF (0-2); SQUAMOUS EPITHELIAL CELL,UR Rare /LPF (None Seen); WBC,URINE 0-2 /HPF (0-5)
[2019-02-07 08:51] VITALS: BP 132/80
[2019-02-07] MEDS ORDERED: ACETAMINOPHEN 325 MG TABLET PO PRN (14:15)
[2019-02-07] MEDS ORDERED: ALBUTEROL SULFATE HFA 90 MCG/PUFF 8 GM INHALER IH PRN (14:15)
[2019-02-07] MEDS ORDERED: MAG HYDROX/AL HYDROX/SIMETH ES 30 ML SUSPENSION UDCUP PO PRN (14:15)
[2019-02-07] MEDS ORDERED: LOPERAMIDE HCL 2 MG CAPSULE PO PRN (14:15)
[2019-02-07] MEDS ORDERED: DOCUSATE SODIUM 100 MG CAPSULE PO PRN (14:15)
[2019-02-07] MEDS ORDERED: MAGNESIUM HYDROXIDE SUSPENSION 30 ML UDCUP PO PRN (14:15)
[2019-02-07] MEDS ORDERED: PETROLATUM,WHITE 28 GM JELLY TP PRN (14:15)
[2019-02-07] MEDS ORDERED: NICOTINE 14 MG/24 HOUR PATCH TD PRN (14:15)
[2019-02-07] MEDS ORDERED: ONDANSETRON HCL 4 MG TABLET PO PRN (14:15)
[2019-02-07] MEDS ORDERED: GuaiFENesin/D-METHORPHAN [SUGAR-FREE] 200-20MG/10 ML SYRUP UDCUP PO PRN (14:15)
[2019-02-07] MEDS ORDERED: CloNIDine HCL 0.1 MG TABLET PO PRN (14:15)
== END 2019-02-07 12:43 | disposition home or self-care (01) ==
LOC: EMS 00:03
DX: F31.9 Bipolar disorder, unspecified (principal); F20.9 Schizophrenia, unspecified; F41.9 Anxiety disorder, unspecified; F17.210 Nicotine dependence, cigarettes, uncomplicated; F12.90 Cannabis use, unspecified, uncomplicated; F15.90 Other stimulant use, unspecified, uncomplicated; Z79.899 Other long term (current) drug therapy; Z88.6 Allergy status to analgesic agent; Z91.018 Allergy to other foods; Z98.890 Other specified postprocedural states
CPT/HCPCS: 36415; 80053; 80307; 81001; 85025; 99284; G0480

== ENCOUNTER 2019-03-07 07:06 | Inpatient (IN) | payer MEDICAID, OTHER ==
[~2019-03-07] VITALS: Ht 167.6 cm; Wt 76.5 kg
[2019-03-07 07:57] LABS: AMPHET/METH SCREEN,URINE NEGATIVE (NEGATIVE); BARBITURATE SCREEN, URINE NEGATIVE (NEGATIVE); BENZODIAZEPINES SCREEN,URINE NEGATIVE (NEGATIVE); CANNABINOID SCREEN,URINE NEGATIVE (NEGATIVE); COCAINE SCREEN,URINE NEGATIVE (NEGATIVE); METHADONE SCREEN, URINE NEGATIVE (NEGATIVE); OPIATE SCREEN,URINE NEGATIVE (NEGATIVE)
[2019-03-07 08:07] LABS: PHENCYCLIDINE SCREEN,URINE NEGATIVE (NEGATIVE)
[2019-03-07 08:13] LABS: BASOPHILS % (AUTO) 0.5 % (0.0-2.0); HEMATOCRIT 41.7 % (41-53); LYMPHOCYTES # (AUTO) 1.8 K/uL (1.0-4.8); LYMPHOCYTES % (AUTO) 26.4 % (22.0-44.0); MEAN CORPUSCULAR HEMOGLOBIN 27.2 pg (26.0-34.0); MEAN CORPUSCULAR HGB CONC 33.5 G/dL (31.0-37.0); MEAN CORPUSCULAR VOLUME 81 fL (80-100); MONOCYTES # (AUTO) 0.4 K/uL (0.1-1.0); MONOCYTES % (AUTO) 5.9 % (2.0-9.0); NEUTROPHILS # (AUTO) 4.6 K/uL (1.8-7.7); NEUTROPHILS % (AUTO) 66.2 % (40.0-70.0); PLATELET COUNT (AUTO) 294 K/uL (150-450); RED BLOOD CELL COUNT(AUTO) 5.14 MIL/uL (4.50-5.90); RED CELL DISTRIBUTION WIDTH 15.3 % (11.5-14.5)
[2019-03-07 08:22] LABS: ANION GAP 7 mmol/L (8-16); CALCIUM, TOTAL 8.7 mg/dL (8.8-10.5); CARBON DIOXIDE 26 mmol/L (22-29); CHLORIDE 107 mmol/L (98-107); CREATININE 0.91 mg/dL (0.60-1.30); GLOMERULAR FILTR. RATE CALC > 60 mL/min (>60); GLUCOSE,RANDOM 90 mg/dL (70-110); POTASSIUM 3.6 mmol/L (3.5-5.1); SODIUM SERUM 140 mmol/L (136-145); UREA NITROGEN, BLOOD 9 mg/dL (7-18)
[2019-03-07 08:29] LABS: ALANINE AMINOTRANSFERASE 8 U/L (12-78); ALBUMIN 3.3 g/dL (3.4-5.0); ALKALINE PHOSPHATASE 77 U/L (46-116); ASPARTATE AMINOTRANSFERASE 9 U/L (15-37); BILIRUBIN,TOTAL 0.5 mg/dL (0.1-1.0); TOTAL PROTEIN, SERUM 6.4 g/dL (6.4-8.2)
[2019-03-07] MEDS ORDERED: ZOLPIDEM TARTRATE 10 MG TABLET PO PRN (08:30)
[2019-03-07] MEDS ORDERED: LOPERAMIDE HCL 2 MG CAPSULE PO PRN (17:15)
[2019-03-07] MEDS ORDERED: NICOTINE 14 MG/24 HOUR PATCH TD PRN (17:15)
[2019-03-07] MEDS ORDERED: GuaiFENesin/D-METHORPHAN [SUGAR-FREE] 200-20MG/10 ML SYRUP UDCUP PO PRN (17:15)
[2019-03-07] MEDS ORDERED: ONDANSETRON HCL 4 MG TABLET PO PRN (17:15)
[2019-03-07] MEDS ORDERED: ALBUTEROL SULFATE HFA 90 MCG/PUFF 8 GM INHALER IH PRN (17:15)
[2019-03-07] MEDS ORDERED: MAGNESIUM HYDROXIDE SUSPENSION 30 ML UDCUP PO PRN (17:15)
[2019-03-07] MEDS ORDERED: DOCUSATE SODIUM 100 MG CAPSULE PO PRN (17:15)
[2019-03-07] MEDS ORDERED: PETROLATUM,WHITE 28 GM JELLY TP PRN (17:15)
[2019-03-07] MEDS ORDERED: CloNIDine HCL 0.1 MG TABLET PO PRN (17:15)
[2019-03-07] MEDS ORDERED: ACETAMINOPHEN 325 MG TABLET PO PRN (17:15)
[2019-03-07] MEDS ORDERED: MAG HYDROX/AL HYDROX/SIMETH ES 30 ML SUSPENSION UDCUP PO PRN (17:15)
[2019-03-07 18:29] VITALS: BP 120/71
[2019-03-08 08:00] VITALS: BP 119/64
[2019-03-08] MEDS: HALOPERIDOL 5 MG TABLET PO PRN ×2 (08:07→16:05)
[2019-03-08] MEDS: LORazepam 2 MG TABLET PO PRN ×2 (08:07→16:04)
[2019-03-08 16:04] VITALS: BP 125/72
[2019-03-08] MEDS ORDERED: RisperiDONE 4 MG TABLET PO SCH (21:00)
[2019-03-08 22:25] VITALS: BP 58/35
[2019-03-08 22:40] VITALS: BP 61/42
[2019-03-09] MEDS ORDERED: CITALOPRAM HYDROBROMIDE 20 MG TABLET PO SCH (09:00)
[2019-03-09] MEDS ORDERED: RisperiDONE 2 MG TABLET PO SCH (09:00)
== END 2019-03-09 13:38 | disposition short-term general hospital (02) | DRG 750 ==
LOC: EMS 07:11 → B3A 17:12
PROVIDERS: ADMIT Psychiatry & Neurology Psychiatry; ATTEND Psychiatry & Neurology Psychiatry
DX: F25.0 Schizoaffective disorder, bipolar type (principal); I95.9 Hypotension, unspecified; R45.851 Suicidal ideations; R00.1 Bradycardia, unspecified; Z59.0 Homelessness; F41.9 Anxiety disorder, unspecified; J44.9 Chronic obstructive pulmonary disease, unspecified; F19.20 Other psychoactive substance dependence, uncomplicated; F10.129 Alcohol abuse with intoxication, unspecified; F11.90 Opioid use, unspecified, uncomplicated; F17.210 Nicotine dependence, cigarettes, uncomplicated; F12.90 Cannabis use, unspecified, uncomplicated; F14.90 Cocaine use, unspecified, uncomplicated; F32.9 Major depressive disorder, single episode, unspecified; Z91.19 Patient's noncompliance with other medical treatment and regimen; Z91.5 Personal history of self-harm; Z71.41 Alcohol abuse counseling and surveillance of alcoholic; Z71.51 Drug abuse counseling and surveillance of drug abuser; Z71.6 Tobacco abuse counseling
CPT/HCPCS: 83735; G0480

== ENCOUNTER 2019-03-12 12:52 | Inpatient (IN) | payer MEDICAID ==
[~2019-03-12] VITALS: Ht 167.6 cm; Wt 78.5 kg
[2019-03-12] MEDS ORDERED: LORazepam 2 MG TABLET PO PRN (22:30)
[2019-03-12] MEDS ORDERED: HALOPERIDOL 5 MG TABLET PO PRN (22:30)
[2019-03-12] MEDS ORDERED: ZOLPIDEM TARTRATE 10 MG TABLET PO PRN (22:30)
[2019-03-12 22:35] VITALS: BP 148/66
[2019-03-12 22:40] VITALS: BP 148/66
[2019-03-13] MEDS: RisperiDONE 2 MG TABLET PO SCH (09:41)
[2019-03-13] MEDS: CITALOPRAM HYDROBROMIDE 20 MG TABLET PO SCH (09:43)
[2019-03-13 13:48] VITALS: BP 130/60
[2019-03-13] MEDS ORDERED: NICOTINE 14 MG/24 HOUR PATCH TD PRN (15:15)
[2019-03-13] MEDS ORDERED: LOPERAMIDE HCL 2 MG CAPSULE PO PRN (15:15)
[2019-03-13] MEDS ORDERED: PETROLATUM,WHITE 28 GM JELLY TP PRN (15:15)
[2019-03-13] MEDS ORDERED: MAG HYDROX/AL HYDROX/SIMETH ES 30 ML SUSPENSION UDCUP PO PRN (15:15)
[2019-03-13] MEDS ORDERED: ACETAMINOPHEN 325 MG TABLET PO PRN (15:15)
[2019-03-13] MEDS ORDERED: ALBUTEROL SULFATE HFA 90 MCG/PUFF 8 GM INHALER IH PRN (15:15)
[2019-03-13] MEDS ORDERED: GuaiFENesin/D-METHORPHAN [SUGAR-FREE] 200-20MG/10 ML SYRUP UDCUP PO PRN (15:15)
[2019-03-13] MEDS ORDERED: ONDANSETRON HCL 4 MG TABLET PO PRN (15:15)
[2019-03-13] MEDS ORDERED: MAGNESIUM HYDROXIDE SUSPENSION 30 ML UDCUP PO PRN (15:15)
[2019-03-13] MEDS ORDERED: DOCUSATE SODIUM 100 MG CAPSULE PO PRN (15:15)
[2019-03-13] MEDS ORDERED: CloNIDine HCL 0.1 MG TABLET PO PRN (15:15)
[2019-03-13 16:40] VITALS: BP 119/51
[2019-03-13] MEDS: RisperiDONE 4 MG TABLET PO SCH (21:25)
[2019-03-14] MEDS: RisperiDONE 2 MG TABLET PO SCH (08:28)
[2019-03-14] MEDS: CITALOPRAM HYDROBROMIDE 20 MG TABLET PO SCH (08:28)
[2019-03-14 09:56] VITALS: BP 130/64
[2019-03-14 20:26] VITALS: BP 130/62
[2019-03-14] MEDS: RisperiDONE 4 MG TABLET PO SCH (20:29)
[2019-03-15] MEDS: RisperiDONE 2 MG TABLET PO SCH (08:09)
[2019-03-15] MEDS: CITALOPRAM HYDROBROMIDE 20 MG TABLET PO SCH (08:10)
[2019-03-15 16:44] VITALS: BP 128/71
[2019-03-15] MEDS: RisperiDONE 4 MG TABLET PO SCH (21:41)
[2019-03-16] MEDS: CITALOPRAM HYDROBROMIDE 20 MG TABLET PO SCH (08:27)
[2019-03-16] MEDS: RisperiDONE 2 MG TABLET PO SCH (08:28)
[2019-03-16 09:00] VITALS: BP 117/74
[2019-03-16 16:00] VITALS: BP 121/60
[2019-03-16] MEDS: RisperiDONE 4 MG TABLET PO SCH (20:17)
[2019-03-17] MEDS: CITALOPRAM HYDROBROMIDE 20 MG TABLET PO SCH (09:34)
[2019-03-17] MEDS: RisperiDONE 2 MG TABLET PO SCH (09:34)
[2019-03-17 10:00] VITALS: BP 121/85
== END 2019-03-17 10:40 | disposition home or self-care (01) | DRG 750 ==
LOC: 3EC 19:45
PROVIDERS: ADMIT Psychiatry & Neurology Psychiatry; ATTEND Psychiatry & Neurology Psychiatry
DX: F25.0 Schizoaffective disorder, bipolar type (principal); R45.851 Suicidal ideations; J44.9 Chronic obstructive pulmonary disease, unspecified; F41.9 Anxiety disorder, unspecified; F19.90 Other psychoactive substance use, unspecified, uncomplicated; F10.10 Alcohol abuse, uncomplicated; Y90.9 Presence of alcohol in blood, level not specified; F17.200 Nicotine dependence, unspecified, uncomplicated; R45.87 Impulsiveness; Z88.8 Allergy status to other drugs, medicaments and biological substances
CPT/HCPCS: 87081

== ENCOUNTER 2019-03-29 00:46 | Emergency (ER) | payer MEDICAID, OTHER ==
[~2019-03-29] VITALS: Ht 167.6 cm; Wt 80.9 kg
[2019-03-29 04:27] VITALS: BP 143/89
[2019-03-30] MEDS ORDERED: MIRT15 PO (18:48)
[2019-03-30] MEDS ORDERED: TRAZ-220 PO (18:48)
== END 2019-03-29 05:53 | disposition left against medical advice (07) ==
LOC: EMS 00:48
DX: M79.673 Pain in unspecified foot (principal); Z53.21 Procedure and treatment not carried out due to patient leaving prior to being seen by health care provider

== ENCOUNTER 2019-03-30 18:40 | Emergency (ER) | payer OTHER ==
[~2019-03-30] VITALS: Ht 167.6 cm; Wt 81.8 kg
[2019-03-30 18:42] VITALS: BP 138/79
[2019-03-30] MEDS ORDERED: MIRT15 PO (18:48)
[2019-03-30] MEDS ORDERED: TRAZ-220 PO (18:48)
== END 2019-03-30 19:15 | disposition left against medical advice (07) ==
LOC: EMS 18:41
DX: M79.672 Pain in left foot (principal); M79.671 Pain in right foot; Z53.21 Procedure and treatment not carried out due to patient leaving prior to being seen by health care provider

== ENCOUNTER 2019-03-30 20:24 | Inpatient (IN) | payer MEDICAID, OTHER ==
[~2019-03-30] VITALS: Ht 167.6 cm; Wt 75.2 kg
[~2019-03-30 20:24] MED LIST changes: -CITA-106 PO; +MIRT15 PO; -RISP2 PO; -RISP4 PO; +TRAZ-220 PO
[2019-03-30] MEDS ORDERED: HALOPERIDOL 5 MG TABLET PO PRN (22:15)
[2019-03-30] MEDS ORDERED: ZOLPIDEM TARTRATE 10 MG TABLET PO PRN (22:15)
[2019-03-30] MEDS ORDERED: LORazepam 2 MG/ML VIAL ONE (22:29)
[2019-03-30] MEDS ORDERED: DiphenhydrAMINE HCL 50 MG/ML VIAL ONE (22:29)
[2019-03-30] MEDS ORDERED: HALOPERIDOL LACTATE 5 MG/ML VIAL ONE (22:30)
[2019-03-30] MEDS ORDERED: DiphenhydrAMINE HCL 50 MG/ML VIAL IM ONE (22:45)
[2019-03-30] MEDS ORDERED: HALOPERIDOL LACTATE 5 MG/ML VIAL IM ONE (22:45)
[2019-03-30] MEDS ORDERED: LORazepam 2 MG/ML VIAL IM ONE (22:45)
[2019-03-30 23:03] LABS: BASOPHILS % (AUTO) 0.9 % (0.0-2.0); EOSINOPHILS % (AUTO) 1.4 % (1.0-6.0); HEMATOCRIT 36.7 % (41-53); HEMOGLOBIN 12.7 g/dL (13.5-17.5); LYMPHOCYTES # (AUTO) 2.7 K/uL (1.0-4.8); LYMPHOCYTES % (AUTO) 30.7 % (22.0-44.0); MEAN CORPUSCULAR HEMOGLOBIN 27.9 pg (26.0-34.0); MEAN CORPUSCULAR HGB CONC 34.6 G/dL (31.0-37.0); MEAN CORPUSCULAR VOLUME 81 fL (80-100); MONOCYTES # (AUTO) 0.7 K/uL (0.1-1.0); MONOCYTES % (AUTO) 7.7 % (2.0-9.0); NEUTROPHILS # (AUTO) 5.2 K/uL (1.8-7.7); NEUTROPHILS % (AUTO) 59.3 % (40.0-70.0); PLATELET COUNT (AUTO) 340 K/uL (150-450); RED BLOOD CELL COUNT(AUTO) 4.55 MIL/uL (4.50-5.90)
[2019-03-30 23:15] LABS: ANION GAP 8 mmol/L (8-16); CALCIUM, TOTAL 9.4 mg/dL (8.8-10.5); CARBON DIOXIDE 29 mmol/L (22-29); CHLORIDE 101 mmol/L (98-107); CREATININE 0.94 mg/dL (0.60-1.30); GLOMERULAR FILTR. RATE CALC > 60 mL/min (>60); GLUCOSE,RANDOM 98 mg/dL (70-110); POTASSIUM 3.4 mmol/L (3.5-5.1); SODIUM SERUM 138 mmol/L (136-145); UREA NITROGEN, BLOOD 7 mg/dL (7-18)
[2019-03-30 23:21] LABS: ALANINE AMINOTRANSFERASE 27 U/L (12-78); ALBUMIN 3.7 g/dL (3.4-5.0); ALKALINE PHOSPHATASE 115 U/L (46-116); ASPARTATE AMINOTRANSFERASE 20 U/L (15-37); TOTAL PROTEIN, SERUM 7.1 g/dL (6.4-8.2)
[2019-03-31 03:32] VITALS: BP 135/75
[2019-03-31] MEDS ORDERED: INFLUENZA VIRUS VACCINE QVS 2019-20 (3YR+)/PF 60 MCG/0.5 ML SYRINGE IM ONE (03:45)
[2019-03-31] MEDS ORDERED: PNEUMOCOCCAL VACCINE POLYVALENT 0.5 ML VIAL [PPSV23] IM ONE (03:45)
[2019-03-31 08:24] VITALS: BP 120/72
[2019-03-31] MEDS ORDERED: POTASSIUM CHLORIDE 20 MEQ ER TABLET PO ONE (10:15)
[2019-03-31] MEDS: RisperiDONE 4 MG TABLET PO SCH (20:50)
[2019-04-01] MEDS: CITALOPRAM HYDROBROMIDE 20 MG TABLET PO SCH (09:00)
[2019-04-01] MEDS: RisperiDONE 2 MG TABLET PO SCH (09:00)
[2019-04-01] MEDS: RisperiDONE 4 MG TABLET PO SCH (20:54)
[2019-04-02] MEDS: CITALOPRAM HYDROBROMIDE 20 MG TABLET PO SCH (08:18)
[2019-04-02] MEDS: RisperiDONE 2 MG TABLET PO SCH (08:18)
[2019-04-02] MEDS: RisperiDONE 4 MG TABLET PO SCH (20:21)
[2019-04-03] MEDS: RisperiDONE 2 MG TABLET PO SCH (09:00)
[2019-04-03] MEDS: CITALOPRAM HYDROBROMIDE 20 MG TABLET PO SCH (09:00)
[2019-04-03] MEDS ORDERED: RisperiDONE MICROSPHERES 50 MG/2 ML SYRINGE IM SCH (09:00)
[2019-04-03] MEDS: RisperiDONE 4 MG TABLET PO SCH (20:06)
[2019-04-04 08:11] VITALS: BP 128/66
[2019-04-04] MEDS: RisperiDONE 2 MG TABLET PO SCH (09:31)
[2019-04-04] MEDS: CITALOPRAM HYDROBROMIDE 20 MG TABLET PO SCH (09:31)
[2019-04-04] MEDS: LORazepam 2 MG TABLET PO PRN ×2 (16:33→20:44)
[2019-04-04] MEDS: RisperiDONE 4 MG TABLET PO SCH (20:44)
[2019-04-05] MEDS: RisperiDONE 2 MG TABLET PO SCH (08:33)
[2019-04-05] MEDS: CITALOPRAM HYDROBROMIDE 20 MG TABLET PO SCH (08:34)
[2019-04-05 10:06] VITALS: BP 120/66
[2019-04-05] MEDS: LORazepam 2 MG TABLET PO PRN (16:32)
[2019-04-05 16:34] VITALS: BP 118/78
[2019-04-05] MEDS: RisperiDONE 4 MG TABLET PO SCH (20:46)
[2019-04-06 00:38] VITALS: BP 117/80
[2019-04-06] MEDS ORDERED: RISP2 PO (08:45)
[2019-04-06] MEDS ORDERED: RISP4 PO (08:45)
[2019-04-06] MEDS ORDERED: CITA-106 PO (08:46)
[2019-04-06] MEDS ORDERED: RISPC50 IM (08:46)
[2019-04-06] MEDS: RisperiDONE 2 MG TABLET PO SCH (08:58)
[2019-04-06] MEDS: CITALOPRAM HYDROBROMIDE 20 MG TABLET PO SCH (08:59)
== END 2019-04-06 10:00 | disposition home or self-care (01) | DRG 750 ==
LOC: EMS 20:26 → B3A 03-31 01:30
PROVIDERS: ADMIT Psychiatry & Neurology Psychiatry; ATTEND Psychiatry & Neurology Psychiatry
DX: F25.0 Schizoaffective disorder, bipolar type (principal); R45.851 Suicidal ideations; Z78.1 Physical restraint status; D64.9 Anemia, unspecified; F19.20 Other psychoactive substance dependence, uncomplicated; R45.87 Impulsiveness; R41.843 Psychomotor deficit; K21.9 Gastro-esophageal reflux disease without esophagitis; J44.9 Chronic obstructive pulmonary disease, unspecified; E87.6 Hypokalemia; I10 Essential (primary) hypertension; F17.210 Nicotine dependence, cigarettes, uncomplicated; F41.9 Anxiety disorder, unspecified; Z88.8 Allergy status to other drugs, medicaments and biological substances; Z59.0 Homelessness; Z91.018 Allergy to other foods; Z91.19 Patient's noncompliance with other medical treatment and regimen
CPT/HCPCS: 87081; 90686; 90732; 96372; 99291; G0480; J1200; J1630; J2060; J2794

== ENCOUNTER 2019-04-27 20:56 | Emergency (ER) | payer MEDICAID, OTHER ==
[~2019-04-27 20:56] MED LIST changes: +CITA-106 PO; -MIRT15 PO; +RISP2 PO; +RISP4 PO; +RISPC50 IM; -TRAZ-220 PO
== END 2019-04-27 21:30 | disposition left against medical advice (07) ==
LOC: EMS 20:57
DX: Z00.8 Encounter for other general examination (principal); Z53.21 Procedure and treatment not carried out due to patient leaving prior to being seen by health care provider

== ENCOUNTER 2019-04-27 22:25 | Emergency (ER) | payer OTHER | END 2019-04-27 22:30 | disposition left against medical advice (07) | LOC: EMS 22:26 | DX: Z00.8 Encounter for other general examination (principal); Z53.21 Procedure and treatment not carried out due to patient leaving prior to being seen by health care provider ==

== ENCOUNTER 2019-04-28 10:58 | Inpatient (IN) | payer MEDICAID, OTHER ==
[~2019-04-28] VITALS: Ht 167.6 cm; Wt 80.9 kg
[2019-04-28] MEDS ORDERED: DiphenhydrAMINE HCL 50 MG/ML VIAL IM ONE (13:45)
[2019-04-28] MEDS ORDERED: LORazepam 2 MG/ML VIAL IM ONE (13:45)
[2019-04-28] MEDS ORDERED: HALOPERIDOL LACTATE 5 MG/ML VIAL IM ONE (13:45)
[2019-04-28 14:25] LABS: AMPHET/METH SCREEN,URINE POSITIVE (NEGATIVE); BARBITURATE SCREEN, URINE NEGATIVE (NEGATIVE); BENZODIAZEPINES SCREEN,URINE NEGATIVE (NEGATIVE); CANNABINOID SCREEN,URINE NEGATIVE (NEGATIVE); COCAINE SCREEN,URINE NEGATIVE (NEGATIVE); METHADONE SCREEN, URINE NEGATIVE (NEGATIVE); OPIATE SCREEN,URINE NEGATIVE (NEGATIVE)
[2019-04-28 14:26] LABS: PHENCYCLIDINE SCREEN,URINE NEGATIVE (NEGATIVE)
[2019-04-28 14:29] LABS: BASOPHILS % (AUTO) 1.2 % (0.0-2.0); EOSINOPHILS % (AUTO) 1.5 % (1.0-6.0); HEMATOCRIT 39.4 % (41-53); HEMOGLOBIN 13.3 g/dL (13.5-17.5); LYMPHOCYTES # (AUTO) 2.3 K/uL (1.0-4.8); LYMPHOCYTES % (AUTO) 26.3 % (22.0-44.0); MEAN CORPUSCULAR HGB CONC 33.6 G/dL (31.0-37.0); MEAN CORPUSCULAR VOLUME 80 fL (80-100); MONOCYTES # (AUTO) 0.8 K/uL (0.1-1.0); MONOCYTES % (AUTO) 9.1 % (2.0-9.0); NEUTROPHILS # (AUTO) 5.5 K/uL (1.8-7.7); NEUTROPHILS % (AUTO) 61.9 % (40.0-70.0); PLATELET COUNT (AUTO) 287 K/uL (150-450); RED BLOOD CELL COUNT(AUTO) 4.91 MIL/uL (4.50-5.90)
[2019-04-28 14:44] LABS: ANION GAP 8 mmol/L (8-16); CALCIUM, TOTAL 9.2 mg/dL (8.8-10.5); CARBON DIOXIDE 30 mmol/L (22-29); CHLORIDE 103 mmol/L (98-107); CREATININE 0.89 mg/dL (0.60-1.30); GLOMERULAR FILTR. RATE CALC > 60 mL/min (>60); GLUCOSE,RANDOM 95 mg/dL (70-110); POTASSIUM 4.1 mmol/L (3.5-5.1); SODIUM SERUM 141 mmol/L (136-145); UREA NITROGEN, BLOOD 12 mg/dL (7-18)
[2019-04-28] MEDS ORDERED: ZOLPIDEM TARTRATE 10 MG TABLET PO PRN (14:45)
[2019-04-28] MEDS ORDERED: HALOPERIDOL 5 MG TABLET PO PRN (14:45)
[2019-04-28 14:48] LABS: ALANINE AMINOTRANSFERASE 16 U/L (12-78); ALBUMIN 3.5 g/dL (3.4-5.0); ALKALINE PHOSPHATASE 101 U/L (46-116); ASPARTATE AMINOTRANSFERASE 14 U/L (15-37)
[2019-04-28 17:25] VITALS: BP 126/90
[2019-04-28] MEDS ORDERED: POTASSIUM CHLORIDE 20 MEQ ER TABLET PO ONE (17:45)
[2019-04-28] MEDS ORDERED: INFLUENZA VIRUS VACCINE QVS 2019-20 (3YR+)/PF 60 MCG/0.5 ML SYRINGE IM ONE (23:15)
[2019-04-29 03:00] VITALS: BP 132/92
[2019-04-29 08:00] VITALS: BP 105/67
[2019-04-29] MEDS ORDERED: RisperiDONE MICROSPHERES 50 MG/2 ML SYRINGE IM ONE (10:30)
[2019-04-29] MEDS ORDERED: ONDANSETRON HCL 4 MG TABLET PO PRN (11:45)
[2019-04-29] MEDS ORDERED: PETROLATUM,WHITE 28 GM JELLY TP PRN (11:45)
[2019-04-29] MEDS ORDERED: MAGNESIUM HYDROXIDE SUSPENSION 30 ML UDCUP PO PRN (11:45)
[2019-04-29] MEDS ORDERED: MAG HYDROX/AL HYDROX/SIMETH ES 30 ML SUSPENSION UDCUP PO PRN (11:45)
[2019-04-29] MEDS ORDERED: ALBUTEROL SULFATE HFA 90 MCG/PUFF 8 GM INHALER IH PRN (11:45)
[2019-04-29] MEDS ORDERED: DOCUSATE SODIUM 100 MG CAPSULE PO PRN (11:45)
[2019-04-29] MEDS ORDERED: ACETAMINOPHEN 325 MG TABLET PO PRN (11:45)
[2019-04-29] MEDS ORDERED: NICOTINE 14 MG/24 HOUR PATCH TD PRN (11:45)
[2019-04-29] MEDS ORDERED: CloNIDine HCL 0.1 MG TABLET PO PRN (11:45)
[2019-04-29] MEDS ORDERED: LOPERAMIDE HCL 2 MG CAPSULE PO PRN (11:45)
[2019-04-29] MEDS ORDERED: GuaiFENesin/D-METHORPHAN [SUGAR-FREE] 200-20MG/10 ML SYRUP UDCUP PO PRN (11:45)
[2019-04-29] MEDS: CITALOPRAM HYDROBROMIDE 20 MG TABLET PO SCH (20:43)
[2019-04-30 01:34] VITALS: BP 122/66
[2019-04-30] MEDS ORDERED: RisperiDONE MICROSPHERES 50 MG/2 ML SYRINGE IM ONE (09:00)
[2019-04-30 16:00] VITALS: BP 122/66
[2019-04-30] MEDS: CITALOPRAM HYDROBROMIDE 20 MG TABLET PO SCH (20:20)
[2019-05-01 01:48] VITALS: BP 162/84
[2019-05-01] MEDS: CITALOPRAM HYDROBROMIDE 20 MG TABLET PO SCH (20:02)
[2019-05-02 16:01] VITALS: BP 127/78
[2019-05-02] MEDS: CITALOPRAM HYDROBROMIDE 20 MG TABLET PO SCH (20:49)
[2019-05-03 08:00] VITALS: BP 121/66
[2019-05-03] MEDS: LORazepam 2 MG TABLET PO PRN ×2 (10:49→16:12)
[2019-05-03 16:00] VITALS: BP 128/76
[2019-05-03] MEDS: CITALOPRAM HYDROBROMIDE 20 MG TABLET PO SCH (20:31)
[2019-05-04 00:48] VITALS: BP 122/81
== END 2019-05-04 07:47 | disposition home or self-care (01) | DRG 750 ==
LOC: EMS 10:59 → B3A 15:00
PROVIDERS: ADMIT Psychiatry & Neurology Psychiatry; ATTEND Psychiatry & Neurology Psychiatry
DX: F25.0 Schizoaffective disorder, bipolar type (principal); R45.851 Suicidal ideations; Z59.0 Homelessness; R45.87 Impulsiveness; F10.10 Alcohol abuse, uncomplicated; D64.9 Anemia, unspecified; K21.9 Gastro-esophageal reflux disease without esophagitis; J44.9 Chronic obstructive pulmonary disease, unspecified; I10 Essential (primary) hypertension; Z87.891 Personal history of nicotine dependence; Z91.19 Patient's noncompliance with other medical treatment and regimen
CPT/HCPCS: 87081; G0480; J1200; J1630; J2060; J2794

== ENCOUNTER 2019-07-02 19:32 | Emergency (ER) | payer MEDICAID, OTHER ==
[~2019-07-02 19:32] MED LIST changes: -RISP2 PO; -RISP4 PO
== END 2019-07-02 21:00 | disposition left against medical advice (07) ==
LOC: EMS 19:33
DX: F29 Unspecified psychosis not due to a substance or known physiological condition (principal); Z53.21 Procedure and treatment not carried out due to patient leaving prior to being seen by health care provider

== ENCOUNTER 2019-07-05 21:33 | Emergency (ER) | payer OTHER ==
[~2019-07-05] VITALS: Ht 167.6 cm; Wt 80.9 kg
[2019-07-05 22:42] VITALS: BP 173/76
== END 2019-07-06 01:30 | disposition left against medical advice (07) ==
LOC: EMS 21:34
DX: R45.851 Suicidal ideations (principal); Z53.21 Procedure and treatment not carried out due to patient leaving prior to being seen by health care provider

== ENCOUNTER 2019-09-30 18:22 | Inpatient (IN) | payer MEDICAID, OTHER ==
[~2019-09-30] VITALS: Ht 165.1 cm; Wt 79.9 kg
[2019-09-30] MEDS ORDERED: QUET25TA PO (18:28)
[2019-09-30 19:03] LABS: EOSINOPHILS % (AUTO) 0.9 % (1.0-6.0); HEMATOCRIT 40.2 % (41-53); HEMOGLOBIN 13.3 g/dL (13.5-17.5); LYMPHOCYTES # (AUTO) 2.4 K/uL (1.0-4.8); LYMPHOCYTES % (AUTO) 30.7 % (22.0-44.0); MEAN CORPUSCULAR HEMOGLOBIN 25.8 pg (26.0-34.0); MEAN CORPUSCULAR VOLUME 78 fL (80-100); MONOCYTES # (AUTO) 0.5 K/uL (0.1-1.0); MONOCYTES % (AUTO) 5.9 % (2.0-9.0); NEUTROPHILS # (AUTO) 4.8 K/uL (1.8-7.7); NEUTROPHILS % (AUTO) 61.5 % (40.0-70.0); PLATELET COUNT (AUTO) 471 K/uL (150-450); RED BLOOD CELL COUNT(AUTO) 5.13 MIL/uL (4.50-5.90); RED CELL DISTRIBUTION WIDTH 16.4 % (11.5-14.5)
[2019-09-30 19:29] LABS: ANION GAP 9 mmol/L (8-16); CALCIUM, TOTAL 9.1 mg/dL (8.8-10.5); CARBON DIOXIDE 30 mmol/L (22-29); CHLORIDE 107 mmol/L (98-107); CREATININE 0.89 mg/dL (0.60-1.30); GLOMERULAR FILTR. RATE CALC > 60 mL/min (>60); GLUCOSE,RANDOM 75 mg/dL (70-110); POTASSIUM 3.3 mmol/L (3.5-5.1); SODIUM SERUM 146 mmol/L (136-145); UREA NITROGEN, BLOOD 6 mg/dL (7-18)
[2019-09-30 19:34] LABS: ALANINE AMINOTRANSFERASE 24 U/L (12-78); ALBUMIN 3.3 g/dL (3.4-5.0); ALKALINE PHOSPHATASE 114 U/L (46-116); ASPARTATE AMINOTRANSFERASE 16 U/L (15-37); BILIRUBIN,TOTAL 0.5 mg/dL (0.1-1.0)
[2019-09-30] MEDS ORDERED: POTASSIUM CHLORIDE 20 MEQ ER TABLET PO ONE (19:45)
[2019-09-30] MEDS ORDERED: ZOLPIDEM TARTRATE 10 MG TABLET PO PRN (20:45)
[2019-09-30] MEDS ORDERED: QUEtiapine FUMARATE 100 MG TABLET PO PRN (20:45)
[2019-10-01 01:07] VITALS: BP 129/77
[2019-10-01 09:41] LABS: CHOL/HDL RATIO 2.7 (4.2-7.3); POTASSIUM 3.6 mmol/L (3.5-5.1)
[2019-10-01] MEDS: LORazepam 2 MG TABLET PO PRN (16:45)
[2019-10-02 04:24] VITALS: BP 136/60
[2019-10-02 08:06] VITALS: BP 138/79
[2019-10-02] MEDS: ARIPiprazole 5 MG TABLET PO SCH (08:34)
[2019-10-02 16:15] VITALS: BP 136/79
[2019-10-02] MEDS: LORazepam 2 MG TABLET PO PRN (17:17)
[2019-10-02] MEDS ORDERED: DIVALPROEX SODIUM 500 MG ER TABLET PO SCH (21:00)
[2019-10-03 08:06] VITALS: BP 145/91
[2019-10-03] MEDS: ARIPiprazole 5 MG TABLET PO SCH (09:12)
[2019-10-03] MEDS ORDERED: PROMETHAZINE HCL 25 MG TABLET PO PRN (12:30)
[2019-10-03] MEDS ORDERED: HydrOXYzine PAMOATE 50 MG CAPSULE PO PRN (12:30)
[2019-10-03] MEDS ORDERED: MAGNESIUM HYDROXIDE SUSPENSION 30 ML UDCUP PO PRN (12:30)
[2019-10-03] MEDS ORDERED: MAG HYDROX/AL HYDROX/SIMETH ES 30 ML SUSPENSION UDCUP PO PRN (12:30)
[2019-10-03] MEDS ORDERED: TUBERCULIN, PURIFIED PROTEIN DERIVATIVE 5 TU/0.1 ML SYRINGE ID ONE (12:30)
[2019-10-03] MEDS ORDERED: ACETAMINOPHEN 325 MG TABLET PO PRN (12:30)
[2019-10-03] MEDS ORDERED: LOPERAMIDE HCL 2 MG CAPSULE PO PRN (12:30)
[2019-10-03] MEDS ORDERED: PALIPERIDONE PALMITATE 234 MG/1.5 ML SYRINGE IM ONE (12:30)
[2019-10-03] MEDS ORDERED: PALIPERIDONE 1.5 MG ER TABLET PO PRN (12:30)
[2019-10-03] MEDS ORDERED: GuaiFENesin/D-METHORPHAN [SUGAR-FREE] 200-20MG/10 ML SYRUP UDCUP PO PRN (12:30)
[2019-10-03 16:19] VITALS: BP 112/72
[2019-10-03] MEDS: THIAMINE HCL 100 MG TABLET PO SCH (16:42)
[2019-10-03] MEDS: LORazepam 2 MG TABLET PO PRN (16:42)
[2019-10-03] MEDS: DIVALPROEX SODIUM 500 MG ER TABLET PO SCH (20:37)
[2019-10-03] MEDS ORDERED: PALIPERIDONE 3 MG ER TABLET PO SCH (21:00)
[2019-10-04 08:06] VITALS: BP 111/60
[2019-10-04] MEDS: MULTIVITAMINS WITH MINERALS, THERAPEUTIC TABLET PO SCH (09:34)
[2019-10-04] MEDS: THIAMINE HCL 100 MG TABLET PO SCH ×2 (09:35→16:42)
[2019-10-04] MEDS: FOLIC ACID 1 MG TABLET PO SCH (09:35)
[2019-10-04 16:00] VITALS: BP 120/74
[2019-10-04] MEDS: LORazepam 2 MG TABLET PO PRN (16:42)
[2019-10-04] MEDS: DIVALPROEX SODIUM 500 MG ER TABLET PO SCH (20:54)
[2019-10-05 05:03] VITALS: BP 130/72
[2019-10-05] MEDS: FOLIC ACID 1 MG TABLET PO SCH (08:32)
[2019-10-05] MEDS: NALTREXONE HCL 50 MG TABLET PO SCH (08:32)
[2019-10-05] MEDS: MULTIVITAMINS WITH MINERALS, THERAPEUTIC TABLET PO SCH (08:32)
[2019-10-05] MEDS: THIAMINE HCL 100 MG TABLET PO SCH ×2 (08:32→16:27)
[2019-10-05] MEDS: LORazepam 2 MG TABLET PO PRN (16:27)
[2019-10-05] MEDS: DIVALPROEX SODIUM 500 MG ER TABLET PO SCH (20:33)
[2019-10-06] MEDS: THIAMINE HCL 100 MG TABLET PO SCH ×2 (09:04→17:01)
[2019-10-06] MEDS: MULTIVITAMINS WITH MINERALS, THERAPEUTIC TABLET PO SCH (09:04)
[2019-10-06] MEDS: FOLIC ACID 1 MG TABLET PO SCH (09:04)
[2019-10-06] MEDS: NALTREXONE HCL 50 MG TABLET PO SCH (09:04)
[2019-10-06] MEDS: DIVALPROEX SODIUM 500 MG ER TABLET PO SCH (20:35)
[2019-10-07 04:43] VITALS: BP 141/62
[2019-10-07] MEDS: FOLIC ACID 1 MG TABLET PO SCH (08:59)
[2019-10-07] MEDS: THIAMINE HCL 100 MG TABLET PO SCH ×2 (08:59→16:03)
[2019-10-07] MEDS: MULTIVITAMINS WITH MINERALS, THERAPEUTIC TABLET PO SCH (08:59)
[2019-10-07] MEDS: NALTREXONE HCL 50 MG TABLET PO SCH (08:59)
[2019-10-07] MEDS ORDERED: PALIPERIDONE PALMITATE 156 MG/ML SYRINGE IM ONE (09:00)
[2019-10-07 10:10] VITALS: BP 112/72
[2019-10-07] MEDS: DIVALPROEX SODIUM 500 MG ER TABLET PO SCH (20:15)
[2019-10-08 01:37] VITALS: BP 113/77
[2019-10-08] MEDS: FOLIC ACID 1 MG TABLET PO SCH (08:52)
[2019-10-08] MEDS: MULTIVITAMINS WITH MINERALS, THERAPEUTIC TABLET PO SCH (08:52)
[2019-10-08] MEDS: THIAMINE HCL 100 MG TABLET PO SCH ×2 (08:53→16:46)
[2019-10-08] MEDS: NALTREXONE HCL 50 MG TABLET PO SCH (08:53)
[2019-10-08] MEDS: LORazepam 2 MG TABLET PO PRN (16:46)
[2019-10-08] MEDS: DIVALPROEX SODIUM 500 MG ER TABLET PO SCH (20:18)
[2019-10-09 05:51] VITALS: BP 118/82
[2019-10-09] MEDS: THIAMINE HCL 100 MG TABLET PO SCH ×2 (08:40→16:12)
[2019-10-09] MEDS: FOLIC ACID 1 MG TABLET PO SCH (08:40)
[2019-10-09] MEDS: NALTREXONE HCL 50 MG TABLET PO SCH (08:40)
[2019-10-09] MEDS: MULTIVITAMINS WITH MINERALS, THERAPEUTIC TABLET PO SCH (08:40)
[2019-10-09] MEDS: LORazepam 2 MG TABLET PO PRN (16:12)
[2019-10-09] MEDS: DIVALPROEX SODIUM 500 MG ER TABLET PO SCH (21:02)
[2019-10-10 08:08] VITALS: BP 113/60
[2019-10-10] MEDS: FOLIC ACID 1 MG TABLET PO SCH (08:44)
[2019-10-10] MEDS: MULTIVITAMINS WITH MINERALS, THERAPEUTIC TABLET PO SCH (08:44)
[2019-10-10] MEDS: THIAMINE HCL 100 MG TABLET PO SCH ×2 (08:44→16:40)
[2019-10-10] MEDS: NALTREXONE HCL 50 MG TABLET PO SCH (08:44)
[2019-10-10 16:05] VITALS: BP 136/81
[2019-10-10] MEDS: LORazepam 2 MG TABLET PO PRN (16:40)
[2019-10-10] MEDS: DIVALPROEX SODIUM 500 MG ER TABLET PO SCH (20:30)
[2019-10-11 06:46] VITALS: BP 108/68
[2019-10-11 08:12] VITALS: BP 118/62
[2019-10-11] MEDS: NALTREXONE HCL 50 MG TABLET PO SCH (08:42)
[2019-10-11] MEDS: MULTIVITAMINS WITH MINERALS, THERAPEUTIC TABLET PO SCH (08:42)
[2019-10-11] MEDS: FOLIC ACID 1 MG TABLET PO SCH (08:42)
[2019-10-11] MEDS: THIAMINE HCL 100 MG TABLET PO SCH (08:42)
[2019-10-11] MEDS ORDERED: DIVA500T52 PO (14:49)
[2019-10-11] MEDS ORDERED: NALT50TA PO (14:49)
[2019-10-11] MEDS ORDERED: PALI117D IM (14:49)
== END 2019-10-11 15:10 | disposition home or self-care (01) | DRG 750 ==
LOC: EMS 18:24 → B3A 22:05
PROVIDERS: ADMIT Psychiatry & Neurology Psychiatry; ATTEND Psychiatry & Neurology Psychiatry
DX: F25.0 Schizoaffective disorder, bipolar type (principal); R45.851 Suicidal ideations; Z59.0 Homelessness; F11.90 Opioid use, unspecified, uncomplicated; Z88.8 Allergy status to other drugs, medicaments and biological substances; F12.90 Cannabis use, unspecified, uncomplicated; F14.90 Cocaine use, unspecified, uncomplicated; F41.9 Anxiety disorder, unspecified; F17.210 Nicotine dependence, cigarettes, uncomplicated; Z91.19 Patient's noncompliance with other medical treatment and regimen; Z91.14 Patient's other noncompliance with medication regimen; I10 Essential (primary) hypertension; K21.9 Gastro-esophageal reflux disease without esophagitis; J44.9 Chronic obstructive pulmonary disease, unspecified; D64.9 Anemia, unspecified
CPT/HCPCS: 84132; G0480

== ENCOUNTER 2020-03-20 23:35 | Inpatient (IN) | payer MEDICAID, OTHER ==
[~2020-03-20] VITALS: Ht 167.6 cm; Wt 76.9 kg
[~2020-03-20 23:35] MED LIST changes: -CITA-106 PO; +DIVA-80 PO; +NALT50TA PO; +PALI117D IM; -RISPC50 IM
[2020-03-21] MEDS ORDERED: HALOPERIDOL 5 MG TABLET PO PRN (01:15)
[2020-03-21 01:54] LABS: COVID AG,FIA SOURCE NASOPHARYNGEAL
[2020-03-21 05:48] LABS: AMPHET/METH SCREEN,URINE POSITIVE (NEGATIVE); BARBITURATE SCREEN, URINE NEGATIVE (NEGATIVE); BENZODIAZEPINES SCREEN,URINE NEGATIVE (NEGATIVE); CANNABINOID SCREEN,URINE NEGATIVE (NEGATIVE); COCAINE SCREEN,URINE NEGATIVE (NEGATIVE); METHADONE SCREEN, URINE NEGATIVE (NEGATIVE); OPIATE SCREEN,URINE NEGATIVE (NEGATIVE)
[2020-03-21 05:51] LABS: PHENCYCLIDINE SCREEN,URINE NEGATIVE (NEGATIVE)
[2020-03-21 05:52] LABS: APPEARANCE,URINE CLEAR (CLEAR); BILIRUBIN,URINE NEGATIVE (NEGATIVE); GLUCOSE, URINE (UA) NEGATIVE (NEGATIVE); KETONES,URINE NEGATIVE (NEGATIVE); LEUKOCYTE ESTERASE ,URINE NEGATIVE (NEGATIVE); NITRATE,URINE NEGATIVE (NEGATIVE); OCCULT BLOOD,URINE NEGATIVE (NEGATIVE); PROTEIN,URINE NEGATIVE (NEGATIVE); UROBILINOGEN,URINE 0.2 mg/dL (<=1.0)
[2020-03-21] MEDS ORDERED: CloNIDine HCL 0.1 MG TABLET PO PRN (07:30)
[2020-03-21] MEDS ORDERED: MAGNESIUM HYDROXIDE SUSPENSION 30 ML UDCUP PO PRN (07:30)
[2020-03-21] MEDS ORDERED: GuaiFENesin/D-METHORPHAN [SUGAR-FREE] 200-20MG/10 ML SYRUP UDCUP PO PRN (07:30)
[2020-03-21] MEDS ORDERED: MAG HYDROX/AL HYDROX/SIMETH ES 30 ML SUSPENSION UDCUP PO PRN (07:30)
[2020-03-21] MEDS ORDERED: ALBUTEROL SULFATE HFA 90 MCG/PUFF 8 GM INHALER IH PRN (07:30)
[2020-03-21] MEDS ORDERED: NICOTINE 14 MG/24 HOUR PATCH TD PRN (07:30)
[2020-03-21] MEDS ORDERED: PETROLATUM,WHITE 28 GM JELLY TP PRN (07:30)
[2020-03-21] MEDS ORDERED: ONDANSETRON HCL 4 MG TABLET PO PRN (07:30)
[2020-03-21 16:19] VITALS: BP 137/75
[2020-03-21] MEDS ORDERED: PNEUMOCOCCAL VACCINE POLYVALENT 0.5 ML VIAL [PPSV23] IM ONE (16:45)
[2020-03-22 02:30] VITALS: BP 141/90
[2020-03-22 08:00] VITALS: BP 122/89
[2020-03-22] MEDS: OLANZapine 5 MG TABLET PO SCH ×2 (12:07→17:28)
[2020-03-22] MEDS ORDERED: OLANZapine 5 MG TABLET PO SCH (17:00)
[2020-03-22] MEDS: LORazepam 2 MG TABLET PO PRN (17:28)
[2020-03-23 08:17] VITALS: BP 128/81
[2020-03-23] MEDS: OLANZapine 5 MG TABLET PO SCH ×2 (09:00→17:00)
[2020-03-23 16:15] VITALS: BP 132/76
[2020-03-24 00:02] VITALS: BP 141/98
[2020-03-24] MEDS: OLANZapine 5 MG TABLET PO SCH (09:00)
[2020-03-24] MEDS: ARIPiprazole 10 MG TABLET PO SCH (10:13)
[2020-03-24 16:03] VITALS: BP 128/66
[2020-03-25 00:51] VITALS: BP 124/68
[2020-03-25] MEDS: ARIPiprazole 10 MG TABLET PO SCH (08:21)
[2020-03-25] MEDS: LORazepam 2 MG TABLET PO PRN ×2 (08:22→18:04)
[2020-03-26] MEDS: ARIPiprazole 10 MG TABLET PO SCH (08:42)
[2020-03-26 16:00] VITALS: BP 126/80
[2020-03-27 01:28] VITALS: BP 102/63
[2020-03-27] MEDS: THIAMINE 100 MG TABLET PO SCH (08:06)
[2020-03-27] MEDS: ARIPiprazole 10 MG TABLET PO SCH (08:06)
[2020-03-27] MEDS: MULTIVITAMINS WITH MINERALS, THERAPEUTIC TABLET PO SCH (08:06)
[2020-03-27] MEDS: FOLIC ACID 1 MG TABLET PO SCH (08:06)
[2020-03-27 08:08] VITALS: BP 107/66
[2020-03-27 16:00] VITALS: BP 133/71
[2020-03-28] MEDS: FOLIC ACID 1 MG TABLET PO SCH (08:20)
[2020-03-28] MEDS: THIAMINE 100 MG TABLET PO SCH (08:20)
[2020-03-28] MEDS: MULTIVITAMINS WITH MINERALS, THERAPEUTIC TABLET PO SCH (08:20)
[2020-03-28] MEDS: ARIPiprazole 10 MG TABLET PO SCH (08:20)
[2020-03-28 16:00] VITALS: BP 115/68
[2020-03-29] MEDS: ARIPiprazole 10 MG TABLET PO SCH (08:43)
[2020-03-29] MEDS: MULTIVITAMINS WITH MINERALS, THERAPEUTIC TABLET PO SCH (08:55)
[2020-03-29] MEDS: FOLIC ACID 1 MG TABLET PO SCH (08:55)
[2020-03-29] MEDS: THIAMINE 100 MG TABLET PO SCH (08:55)
[2020-03-29] MEDS: LORazepam 2 MG TABLET PO PRN (15:56)
[2020-03-29 16:01] VITALS: BP 119/71
[2020-03-29] MEDS: MIRTAZAPINE 15 MG TABLET PO SCH (20:29)
[2020-03-29] MEDS: ZOLPIDEM TARTRATE 10 MG TABLET PO PRN (20:29)
[2020-03-30 08:01] VITALS: BP 117/81
[2020-03-30] MEDS: LORazepam 2 MG TABLET PO PRN ×2 (08:27→16:20)
[2020-03-30] MEDS: ARIPiprazole 10 MG TABLET PO SCH (08:27)
[2020-03-30] MEDS: MULTIVITAMINS WITH MINERALS, THERAPEUTIC TABLET PO SCH (08:27)
[2020-03-30] MEDS: FOLIC ACID 1 MG TABLET PO SCH (08:27)
[2020-03-30] MEDS: THIAMINE 100 MG TABLET PO SCH (08:27)
[2020-03-30 16:00] VITALS: BP 104/73
[2020-03-30] MEDS: MIRTAZAPINE 15 MG TABLET PO SCH (20:00)
[2020-03-30] MEDS: ZOLPIDEM TARTRATE 10 MG TABLET PO PRN (21:03)
[2020-03-31] MEDS: ARIPiprazole 10 MG TABLET PO SCH (08:29)
[2020-03-31] MEDS: FOLIC ACID 1 MG TABLET PO SCH (08:30)
[2020-03-31] MEDS: THIAMINE 100 MG TABLET PO SCH (08:30)
[2020-03-31] MEDS: MULTIVITAMINS WITH MINERALS, THERAPEUTIC TABLET PO SCH (08:30)
[2020-03-31 08:37] VITALS: BP 136/78
[2020-03-31 16:01] VITALS: BP 121/86
[2020-03-31] MEDS: ACETAMINOPHEN 325 MG TABLET PO PRN (16:59)
[2020-03-31] MEDS: MIRTAZAPINE 15 MG TABLET PO SCH (20:43)
[2020-04-01] MEDS: ARIPiprazole 10 MG TABLET PO SCH (08:05)
[2020-04-01] MEDS: FOLIC ACID 1 MG TABLET PO SCH (08:06)
[2020-04-01] MEDS: MULTIVITAMINS WITH MINERALS, THERAPEUTIC TABLET PO SCH (08:06)
[2020-04-01] MEDS: THIAMINE 100 MG TABLET PO SCH (08:06)
[2020-04-01 16:02] VITALS: BP 111/77
[2020-04-01] MEDS: MIRTAZAPINE 15 MG TABLET PO SCH (20:16)
[2020-04-02] MEDS: ARIPiprazole 10 MG TABLET PO SCH (08:00)
[2020-04-02 08:21] VITALS: BP 105/66
[2020-04-02] MEDS: THIAMINE 100 MG TABLET PO SCH (09:00)
[2020-04-02] MEDS: MULTIVITAMINS WITH MINERALS, THERAPEUTIC TABLET PO SCH (09:00)
[2020-04-02] MEDS: FOLIC ACID 1 MG TABLET PO SCH (09:00)
[2020-04-02] MEDS: ACETAMINOPHEN 325 MG TABLET PO PRN (13:05)
[2020-04-02 16:02] VITALS: BP 126/87
[2020-04-02] MEDS: LORazepam 2 MG TABLET PO PRN (16:34)
[2020-04-02] MEDS: MIRTAZAPINE 15 MG TABLET PO SCH (20:19)
[2020-04-03 00:39] VITALS: BP 124/74
[2020-04-03] MEDS: ARIPiprazole 10 MG TABLET PO SCH (08:43)
[2020-04-03] MEDS: FOLIC ACID 1 MG TABLET PO SCH (09:00)
[2020-04-03] MEDS: MULTIVITAMINS WITH MINERALS, THERAPEUTIC TABLET PO SCH (09:00)
[2020-04-03] MEDS: THIAMINE 100 MG TABLET PO SCH (09:00)
[2020-04-03 13:20] VITALS: BP 108/70
[2020-04-03 16:14] VITALS: BP 118/72
[2020-04-03] MEDS: MIRTAZAPINE 15 MG TABLET PO SCH (20:01)
[2020-04-04 08:00] VITALS: BP 134/80
[2020-04-04] MEDS: ARIPiprazole 10 MG TABLET PO SCH (09:18)
[2020-04-04] MEDS: THIAMINE 100 MG TABLET PO SCH (09:19)
[2020-04-04] MEDS: MULTIVITAMINS WITH MINERALS, THERAPEUTIC TABLET PO SCH (09:19)
[2020-04-04] MEDS: FOLIC ACID 1 MG TABLET PO SCH (09:19)
[2020-04-04] MEDS ORDERED: MIRT-89 PO (11:43)
[2020-04-04] MEDS ORDERED: ARIP10TA8 PO (11:43)
== END 2020-04-04 13:15 | disposition home or self-care (01) | DRG 750 ==
LOC: EMS 23:35 → B3A 03-21 01:15
PROVIDERS: ADMIT Psychiatry & Neurology Psychiatry; ATTEND Psychiatry & Neurology Psychiatry
DX: F25.0 Schizoaffective disorder, bipolar type (principal); F41.9 Anxiety disorder, unspecified; F11.90 Opioid use, unspecified, uncomplicated; F12.90 Cannabis use, unspecified, uncomplicated; F14.90 Cocaine use, unspecified, uncomplicated; J44.9 Chronic obstructive pulmonary disease, unspecified; Z20.828 Contact with and (suspected) exposure to other viral communicable diseases; K21.9 Gastro-esophageal reflux disease without esophagitis; I10 Essential (primary) hypertension; F10.10 Alcohol abuse, uncomplicated; Z88.8 Allergy status to other drugs, medicaments and biological substances; Z87.891 Personal history of nicotine dependence
CPT/HCPCS: 87426

== ENCOUNTER 2020-04-11 13:05 | Inpatient (IN) | payer MEDICAID, OTHER ==
[~2020-04-11] VITALS: Ht 167.6 cm; Wt 81.0 kg
[~2020-04-11 13:05] MED LIST changes: +ARIP10TA8 PO; -DIVA-80 PO; +MIRT-89 PO; -NALT50TA PO; -PALI117D IM
[2020-04-11 14:00] LABS: BASOPHILS % (AUTO) 0.9 % (0.0-2.0); EOSINOPHILS % (AUTO) 0.2 % (1.0-6.0); HEMATOCRIT 39.8 % (41-53); HEMOGLOBIN 13.5 g/dL (13.5-17.5); LYMPHOCYTES # (AUTO) 1.3 K/uL (1.0-4.8); LYMPHOCYTES % (AUTO) 15.7 % (22.0-44.0); MEAN CORPUSCULAR HEMOGLOBIN 26.9 pg (26.0-34.0); MEAN CORPUSCULAR VOLUME 79 fL (80-100); MONOCYTES # (AUTO) 0.4 K/uL (0.1-1.0); MONOCYTES % (AUTO) 5.2 % (2.0-9.0); NEUTROPHILS # (AUTO) 6.3 K/uL (1.8-7.7); PLATELET COUNT (AUTO) 257 K/uL (150-450); RED BLOOD CELL COUNT(AUTO) 5.03 MIL/uL (4.50-5.90); RED CELL DISTRIBUTION WIDTH 15.3 % (11.5-14.5)
[2020-04-11 14:13] LABS: ANION GAP 5 mmol/L (8-16); CARBON DIOXIDE 29 mmol/L (22-29); CHLORIDE 109 mmol/L (98-107); CREATININE 1.02 mg/dL (0.60-1.30); GLOMERULAR FILTR. RATE CALC > 60 mL/min (>60); GLUCOSE,RANDOM 100 mg/dL (70-110); POTASSIUM 4.4 mmol/L (3.5-5.1); SODIUM SERUM 143 mmol/L (136-145); UREA NITROGEN, BLOOD 9 mg/dL (7-18)
[2020-04-11 14:14] LABS: AMPHET/METH SCREEN,URINE NEGATIVE (NEGATIVE); BARBITURATE SCREEN, URINE NEGATIVE (NEGATIVE); BENZODIAZEPINES SCREEN,URINE NEGATIVE (NEGATIVE); CANNABINOID SCREEN,URINE NEGATIVE (NEGATIVE); COCAINE SCREEN,URINE NEGATIVE (NEGATIVE); METHADONE SCREEN, URINE NEGATIVE (NEGATIVE); OPIATE SCREEN,URINE NEGATIVE (NEGATIVE)
[2020-04-11 14:16] LABS: PHENCYCLIDINE SCREEN,URINE NEGATIVE (NEGATIVE)
[2020-04-11 14:27] LABS: ALANINE AMINOTRANSFERASE 159 U/L (12-78); ALBUMIN 3.7 g/dL (3.4-5.0); ALKALINE PHOSPHATASE 151 U/L (46-116); ASPARTATE AMINOTRANSFERASE 55 U/L (15-37); BILIRUBIN,TOTAL 0.7 mg/dL (0.1-1.0)
[2020-04-11] MEDS ORDERED: HALOPERIDOL 5 MG TABLET PO PRN (16:00)
[2020-04-11] MEDS ORDERED: ZOLPIDEM TARTRATE 10 MG TABLET PO PRN (16:00)
[2020-04-11 16:31] LABS: COVID AG,FIA SOURCE NASOPHARYNGEAL
[2020-04-11] MEDS: LORazepam 2 MG TABLET PO PRN (21:03)
[2020-04-11 22:21] VITALS: BP 153/69
[2020-04-11] MEDS ORDERED: INFLUENZA VIRUS VACCINE QVS 2020-21 (6MO+)/PF 60 MCG/0.5 ML SYRINGE IM ONE (23:00)
[2020-04-12 04:02] VITALS: BP 128/75
[2020-04-12] MEDS ORDERED: ACETAMINOPHEN 325 MG TABLET PO PRN (06:45)
[2020-04-12] MEDS ORDERED: ALBUTEROL SULFATE HFA 90 MCG/PUFF 8 GM INHALER IH PRN (06:45)
[2020-04-12] MEDS ORDERED: CloNIDine HCL 0.1 MG TABLET PO PRN (06:45)
[2020-04-12] MEDS ORDERED: ONDANSETRON HCL 4 MG TABLET PO PRN (06:45)
[2020-04-12] MEDS ORDERED: PETROLATUM,WHITE 28 GM JELLY TP PRN (06:45)
[2020-04-12] MEDS ORDERED: MAGNESIUM HYDROXIDE SUSPENSION 30 ML UDCUP PO PRN (06:45)
[2020-04-12] MEDS ORDERED: GuaiFENesin/D-METHORPHAN [SUGAR-FREE] 200-20MG/10 ML SYRUP UDCUP PO PRN (06:45)
[2020-04-12] MEDS ORDERED: NICOTINE 14 MG/24 HOUR PATCH TD PRN (06:45)
[2020-04-12] MEDS ORDERED: MAG HYDROX/AL HYDROX/SIMETH ES 30 ML SUSPENSION UDCUP PO PRN (06:45)
[2020-04-12] MEDS: ARIPiprazole 15 MG TABLET PO SCH (08:23)
[2020-04-12 16:07] VITALS: BP 149/85
[2020-04-12] MEDS: LORazepam 2 MG TABLET PO PRN (18:20)
[2020-04-13 00:31] VITALS: BP 169/91
[2020-04-13] MEDS ORDERED: INFLUENZA VIRUS VACCINE QVS 2020-21 (6MO+)/PF 60 MCG/0.5 ML SYRINGE IM ONE (01:45)
[2020-04-13 08:26] VITALS: BP 108/66
[2020-04-13] MEDS: ARIPiprazole 15 MG TABLET PO SCH (08:33)
[2020-04-13 16:14] VITALS: BP 107/68
[2020-04-13] MEDS: LORazepam 2 MG TABLET PO PRN (18:35)
[2020-04-14 00:01] VITALS: BP 160/95
[2020-04-14] MEDS: ARIPiprazole 15 MG TABLET PO SCH (09:22)
== END 2020-04-14 15:50 | disposition home or self-care (01) | DRG 750 ==
LOC: EMS 13:07 → B3A 16:00
PROVIDERS: ADMIT Psychiatry & Neurology Psychiatry; ATTEND Psychiatry & Neurology Psychiatry
DX: F25.9 Schizoaffective disorder, unspecified (principal); I10 Essential (primary) hypertension; J44.9 Chronic obstructive pulmonary disease, unspecified; F19.10 Other psychoactive substance abuse, uncomplicated; F17.200 Nicotine dependence, unspecified, uncomplicated; F41.9 Anxiety disorder, unspecified; R45.851 Suicidal ideations; Z20.828 Contact with and (suspected) exposure to other viral communicable diseases; Z72.89 Other problems related to lifestyle; Z59.0 Homelessness; Z83.3 Family history of diabetes mellitus
CPT/HCPCS: 87081; 87426; 90686; G0480

== ENCOUNTER 2021-11-13 16:41 | Emergency (ER) | payer MEDICAID, OTHER ==
[~2021-11-13] VITALS: Ht 165.1 cm; Wt 82.3 kg
[~2021-11-13 16:41] MED LIST changes: +ARIP10TA38 PO; -ARIP10TA8 PO; -MIRT-89 PO
[2021-11-13 17:03] VITALS: BP 156/103
== END 2021-11-13 21:47 | disposition left against medical advice (07) ==
LOC: EMS 16:41
DX: Z53.21 Procedure and treatment not carried out due to patient leaving prior to being seen by health care provider (principal)

== ENCOUNTER 2021-11-16 03:40 | Inpatient (IN) | payer MEDICAID, OTHER ==
[~2021-11-16] VITALS: Ht 165.1 cm; Wt 75.3 kg
[2021-11-16 04:21] LABS: BASOPHILS % (AUTO) 0.7 % (0.0-2.0); EOSINOPHILS % (AUTO) 1.3 % (1.0-6.0); HEMATOCRIT 34.4 % (41-53); HEMOGLOBIN 11.8 g/dL (13.5-17.5); LYMPHOCYTES # (AUTO) 1.9 K/uL (1.0-4.8); LYMPHOCYTES % (AUTO) 24.3 % (22.0-44.0); MEAN CORPUSCULAR HEMOGLOBIN 26.4 pg (26.0-34.0); MEAN CORPUSCULAR HGB CONC 34.3 G/dL (31.0-37.0); MEAN CORPUSCULAR VOLUME 77 fL (80-100); MONOCYTES # (AUTO) 0.8 K/uL (0.1-1.0); MONOCYTES % (AUTO) 10.6 % (2.0-9.0); NEUTROPHILS % (AUTO) 63.1 % (40.0-70.0); PLATELET COUNT (AUTO) 304 K/uL (150-450); RED BLOOD CELL COUNT(AUTO) 4.48 MIL/uL (4.50-5.90); RED CELL DISTRIBUTION WIDTH 14.9 % (11.5-14.5)
[2021-11-16 04:26] LABS: ANION GAP 11 mmol/L (8-16); CALCIUM, TOTAL 8.8 mg/dL (8.8-10.5); CARBON DIOXIDE 27 mmol/L (22-29); CHLORIDE 104 mmol/L (98-107); CREATININE 1.02 mg/dL (0.60-1.30); GLOMERULAR FILTR. RATE CALC > 60 mL/min (>60); GLUCOSE,RANDOM 104 mg/dL (70-110); POTASSIUM 3.5 mmol/L (3.5-5.1); SODIUM SERUM 142 mmol/L (136-145); UREA NITROGEN, BLOOD 21 mg/dL (7-18)
[2021-11-16 04:32] LABS: ALANINE AMINOTRANSFERASE 59 U/L (12-78); ALBUMIN 3.5 g/dL (3.4-5.0); ALKALINE PHOSPHATASE 110 U/L (46-116); ASPARTATE AMINOTRANSFERASE 37 U/L (15-37); BILIRUBIN,TOTAL 1.2 mg/dL (0.1-1.0); TOTAL PROTEIN, SERUM 7.1 g/dL (6.4-8.2)
[2021-11-16 05:12] LABS: COVID AG,FIA SOURCE NASOPHARYNGEAL
[2021-11-16] MEDS ORDERED: LORazepam 1 MG TABLET PO ONE (06:00)
[2021-11-16 06:30] LABS: AMPHET/METH SCREEN,URINE POSITIVE (NEGATIVE); BARBITURATE SCREEN, URINE NEGATIVE (NEGATIVE); BENZODIAZEPINES SCREEN,URINE NEGATIVE (NEGATIVE); CANNABINOID SCREEN,URINE POSITIVE (NEGATIVE); COCAINE SCREEN,URINE POSITIVE (NEGATIVE); METHADONE SCREEN, URINE NEGATIVE (NEGATIVE); OPIATE SCREEN,URINE NEGATIVE (NEGATIVE)
[2021-11-16 06:34] LABS: PHENCYCLIDINE SCREEN,URINE NEGATIVE (NEGATIVE)
[2021-11-16] MEDS ORDERED: HALOPERIDOL LACTATE 5 MG/ML VIAL ONE (08:03)
[2021-11-16] MEDS ORDERED: DiphenhydrAMINE HCL 50 MG/ML VIAL ONE (08:03)
[2021-11-16] MEDS ORDERED: LORazepam 2 MG/ML VIAL ONE (08:03)
[2021-11-16] MEDS ORDERED: HALOPERIDOL LACTATE 5 MG/ML VIAL IM ONE (08:15)
[2021-11-16] MEDS ORDERED: LORazepam 2 MG/ML VIAL IM ONE (08:15)
[2021-11-16] MEDS ORDERED: DiphenhydrAMINE HCL 50 MG/ML VIAL IM ONE (08:15)
[2021-11-17] MEDS ORDERED: PNEUMOCOCCAL VACCINE POLYVALENT 0.5 ML VIAL [PPSV23] IM. ONE (01:45)
[2021-11-17 02:30] VITALS: BP 118/68
[2021-11-17] MEDS ORDERED: NICOTINE 14 MG/24 HOUR PATCH TD PRN (08:30)
[2021-11-17] MEDS ORDERED: PETROLATUM,WHITE 28 GM JELLY TP PRN (08:30)
[2021-11-17] MEDS ORDERED: CloNIDine HCL 0.1 MG TABLET PO PRN (08:30)
[2021-11-17] MEDS ORDERED: LOPERAMIDE HCL 2 MG CAPSULE PO PRN (08:30)
[2021-11-17] MEDS ORDERED: GuaiFENesin/D-METHORPHAN [SUGAR-FREE] 200-20MG/10 ML SYRUP UDCUP PO PRN (08:30)
[2021-11-17] MEDS ORDERED: MAG HYDROX/AL HYDROX/SIMETH ES 30 ML SUSPENSION UDCUP PO PRN (08:30)
[2021-11-17] MEDS ORDERED: ACETAMINOPHEN 325 MG TABLET PO PRN (08:30)
[2021-11-17] MEDS ORDERED: MAGNESIUM HYDROXIDE SUSPENSION 30 ML UDCUP PO PRN (08:30)
[2021-11-17] MEDS ORDERED: ONDANSETRON HCL 4 MG TABLET PO PRN (08:30)
[2021-11-17] MEDS ORDERED: ALBUTEROL SULFATE HFA 90 MCG/PUFF 8 GM INHALER IH PRN (08:30)
[2021-11-18 08:41] VITALS: BP 116/74
[2021-11-18] MEDS: ARIPiprazole 15 MG TABLET PO SCH (09:24)
[2021-11-18] MEDS ORDERED: ARIP15TA27 PO (12:46)
[2021-11-18 16:16] VITALS: BP 127/80
[2021-11-18] MEDS: NEOMYCIN/BACITRACIN/POLYMYXIN B 30 GM OINTMENT TP SCH (18:30)
[2021-11-19] MEDS: MULTIVITAMINS WITH MINERALS, THERAPEUTIC TABLET PO SCH (10:02)
[2021-11-19] MEDS: NEOMYCIN/BACITRACIN/POLYMYXIN B 30 GM OINTMENT TP SCH (10:02)
[2021-11-19] MEDS: LORazepam 2 MG TABLET PO PRN (10:04)
[2021-11-19] MEDS: ARIPiprazole 15 MG TABLET PO SCH (10:04)
[2021-11-20] MEDS: NEOMYCIN/BACITRACIN/POLYMYXIN B 30 GM OINTMENT TP SCH ×2 (08:36→08:40)
[2021-11-20] MEDS: MULTIVITAMINS WITH MINERALS, THERAPEUTIC TABLET PO SCH ×2 (08:36→08:40)
[2021-11-20] MEDS: LORazepam 2 MG TABLET PO PRN ×2 (08:36→16:14)
[2021-11-20] MEDS: ARIPiprazole 15 MG TABLET PO SCH ×2 (08:36→08:40)
[2021-11-20] MEDS: HALOPERIDOL 5 MG TABLET PO PRN (16:14)
[2021-11-20 16:42] VITALS: BP 140/92
[2021-11-20] MEDS: DIVALPROEX SODIUM 500 MG DR TABLET PO SCH (21:15)
[2021-11-21] MEDS: MULTIVITAMINS WITH MINERALS, THERAPEUTIC TABLET PO SCH (08:27)
[2021-11-21] MEDS: ARIPiprazole 15 MG TABLET PO SCH (08:27)
[2021-11-21] MEDS: DIVALPROEX SODIUM 500 MG DR TABLET PO SCH ×2 (08:28→20:24)
[2021-11-21] MEDS: NEOMYCIN/BACITRACIN/POLYMYXIN B 30 GM OINTMENT TP SCH (08:39)
[2021-11-21 16:16] VITALS: BP 138/84
[2021-11-21] MEDS: HALOPERIDOL 5 MG TABLET PO PRN (16:20)
[2021-11-21] MEDS: LORazepam 2 MG TABLET PO PRN (16:20)
[2021-11-22 04:42] VITALS: BP 141/85
[2021-11-22 08:28] VITALS: BP 136/80
[2021-11-22] MEDS: LORazepam 2 MG TABLET PO PRN ×2 (08:46→17:06)
[2021-11-22] MEDS: HALOPERIDOL 5 MG TABLET PO PRN (08:46)
[2021-11-22] MEDS: MULTIVITAMINS WITH MINERALS, THERAPEUTIC TABLET PO SCH (08:46)
[2021-11-22] MEDS: ARIPiprazole 15 MG TABLET PO SCH (08:46)
[2021-11-22] MEDS: NEOMYCIN/BACITRACIN/POLYMYXIN B 30 GM OINTMENT TP SCH (08:46)
[2021-11-22] MEDS: DIVALPROEX SODIUM 500 MG DR TABLET PO SCH ×2 (08:46→21:00)
[2021-11-22] MEDS ORDERED: ARIPiprazole LAUROXIL ER SUSPENSION 882 MG/3.2 ML SYRINGE IM ONE (16:00)
[2021-11-22] MEDS ORDERED: ARIPiprazole LAUROXIL,SUBMICR. ER SUSPENSION 675 MG/2.4 ML SYRINGE IM ONE (16:00)
[2021-11-22 16:22] VITALS: BP 140/87
[2021-11-23] MEDS: MULTIVITAMINS WITH MINERALS, THERAPEUTIC TABLET PO SCH (09:00)
[2021-11-23] MEDS: ARIPiprazole 15 MG TABLET PO SCH (09:00)
[2021-11-23] MEDS: NEOMYCIN/BACITRACIN/POLYMYXIN B 30 GM OINTMENT TP SCH (09:00)
[2021-11-23] MEDS: DIVALPROEX SODIUM 500 MG DR TABLET PO SCH ×2 (09:00→20:09)
[2021-11-23 16:16] VITALS: BP 132/86
[2021-11-24] MEDS: ZOLPIDEM TARTRATE 10 MG TABLET PO PRN (00:24)
[2021-11-24 00:30] VITALS: BP 144/88
[2021-11-24 08:25] VITALS: BP 130/80
[2021-11-24] MEDS: MULTIVITAMINS WITH MINERALS, THERAPEUTIC TABLET PO SCH (09:00)
[2021-11-24] MEDS: DIVALPROEX SODIUM 500 MG DR TABLET PO SCH ×2 (09:00→21:00)
[2021-11-24 16:39] VITALS: BP 119/72
[2021-11-25 02:36] VITALS: BP 135/92
[2021-11-25 08:25] VITALS: BP 135/87
[2021-11-25] MEDS: DIVALPROEX SODIUM 500 MG DR TABLET PO SCH ×2 (09:00→20:59)
[2021-11-25] MEDS: MULTIVITAMINS WITH MINERALS, THERAPEUTIC TABLET PO SCH (09:00)
[2021-11-25 16:33] VITALS: BP 136/73
[2021-11-25] MEDS: LORazepam 2 MG TABLET PO PRN (16:37)
[2021-11-25] MEDS: ZOLPIDEM TARTRATE 10 MG TABLET PO PRN (20:59)
[2021-11-26 01:26] VITALS: BP 142/78
[2021-11-26 08:18] VITALS: BP 142/78
[2021-11-26] MEDS: DIVALPROEX SODIUM 500 MG DR TABLET PO SCH ×2 (09:00→21:00)
[2021-11-26] MEDS: MULTIVITAMINS WITH MINERALS, THERAPEUTIC TABLET PO SCH (09:00)
[2021-11-26 15:21] LABS: GLUCOMETER DEV NAME(LOC) POC.BV
[2021-11-26 16:19] VITALS: BP 121/76
[2021-11-26] MEDS: LORazepam 2 MG TABLET PO PRN (16:33)
[2021-11-27 05:57] VITALS: BP 118/70
[2021-11-27] MEDS: MULTIVITAMINS WITH MINERALS, THERAPEUTIC TABLET PO SCH (09:00)
[2021-11-27] MEDS: DIVALPROEX SODIUM 500 MG DR TABLET PO SCH (09:00)
[2021-11-27] MEDS ORDERED: ARIP882S2 IM (09:14)
[2021-11-27 09:19] VITALS: BP 119/73
== END 2021-11-27 09:40 | disposition home or self-care (01) | DRG 750 ==
LOC: EMS 03:44 → B3A 15:36
PROVIDERS: ADMIT Psychiatry & Neurology Psychiatry; ATTEND Psychiatry & Neurology Psychiatry
DX: F25.0 Schizoaffective disorder, bipolar type (principal); R45.851 Suicidal ideations; F12.10 Cannabis abuse, uncomplicated; F14.10 Cocaine abuse, uncomplicated; F15.10 Other stimulant abuse, uncomplicated; I10 Essential (primary) hypertension; J44.9 Chronic obstructive pulmonary disease, unspecified; K21.9 Gastro-esophageal reflux disease without esophagitis; Z20.822 Contact with and (suspected) exposure to COVID-19; F17.210 Nicotine dependence, cigarettes, uncomplicated; Z91.51 Personal history of suicidal behavior
CPT/HCPCS: 80053; 85025; 99291; G0480; J1200; J1630; J2060; Q9967

== ENCOUNTER 2021-11-16 21:07 | Emergency (ER) | payer MEDICAID, OTHER ==
[~2021-11-16] VITALS: Ht 167.6 cm; Wt 81.8 kg
[2021-11-17 00:46] VITALS: BP 136/58
[2021-11-18] MEDS ORDERED: ARIP15TA27 PO (12:46)
== END 2021-11-17 01:57 | disposition home or self-care (01) ==
LOC: EMS 21:09
DX: R00.1 Bradycardia, unspecified (principal); T50.905A Adverse effect of unspecified drugs, medicaments and biological substances, initial encounter; F41.9 Anxiety disorder, unspecified; F31.9 Bipolar disorder, unspecified; F20.9 Schizophrenia, unspecified; F17.210 Nicotine dependence, cigarettes, uncomplicated; Z87.19 Personal history of other diseases of the digestive system; Z98.890 Other specified postprocedural states; Z91.014 Allergy to mammalian meats; Z88.8 Allergy status to other drugs, medicaments and biological substances; Y92.89 Other specified places as the place of occurrence of the external cause
CPT/HCPCS: 99285; Z7502

== ENCOUNTER 2021-12-05 18:59 | Emergency (ER) | payer OTHER ==
[~2021-12-05] VITALS: Ht 167.6 cm; Wt 77.3 kg
[~2021-12-05 18:59] MED LIST changes: -ARIP10TA38 PO; +ARIP882S2 IM
[2021-12-05 19:20] VITALS: BP 109/48
[2021-12-05] MEDS ORDERED: LORazepam 1 MG TABLET PO ONE (19:45)
[2021-12-05] MEDS ORDERED: HALOPERIDOL 5 MG TABLET PO ONE (19:45)
[2021-12-05 19:50] LABS: EOSINOPHILS % (AUTO) 1.9 % (1.0-6.0); HEMATOCRIT 39.7 % (41-53); HEMOGLOBIN 13.6 g/dL (13.5-17.5); LYMPHOCYTES # (AUTO) 3.6 K/uL (1.0-4.8); LYMPHOCYTES % (AUTO) 32.9 % (22.0-44.0); MEAN CORPUSCULAR HEMOGLOBIN 26.7 pg (26.0-34.0); MEAN CORPUSCULAR HGB CONC 34.2 G/dL (31.0-37.0); MEAN CORPUSCULAR VOLUME 78 fL (80-100); MONOCYTES # (AUTO) 0.5 K/uL (0.1-1.0); MONOCYTES % (AUTO) 4.9 % (2.0-9.0); NEUTROPHILS # (AUTO) 6.5 K/uL (1.8-7.7); NEUTROPHILS % (AUTO) 59.3 % (40.0-70.0); PLATELET COUNT (AUTO) 329 K/uL (150-450); RED BLOOD CELL COUNT(AUTO) 5.08 MIL/uL (4.50-5.90); RED CELL DISTRIBUTION WIDTH 15.7 % (11.5-14.5)
[2021-12-05 19:57] LABS: ANION GAP 2 mmol/L (8-16); CALCIUM, TOTAL 9.1 mg/dL (8.8-10.5); CARBON DIOXIDE 33 mmol/L (22-29); CHLORIDE 103 mmol/L (98-107); CREATININE 1.32 mg/dL (0.60-1.30); GLUCOSE,RANDOM 132 mg/dL (70-110); POTASSIUM 3.2 mmol/L (3.5-5.1); SODIUM SERUM 138 mmol/L (136-145); UREA NITROGEN, BLOOD 9 mg/dL (7-18)
[2021-12-05 20:00] LABS: GLOMERULAR FILTR. RATE CALC > 60 mL/min (>60)
[2021-12-05 20:03] LABS: ALANINE AMINOTRANSFERASE 20 U/L (12-78); ALBUMIN 3.8 g/dL (3.4-5.0); ALKALINE PHOSPHATASE 126 U/L (46-116); ASPARTATE AMINOTRANSFERASE 10 U/L (15-37); BILIRUBIN,TOTAL 0.6 mg/dL (0.1-1.0); TOTAL PROTEIN, SERUM 7.4 g/dL (6.4-8.2)
== END 2021-12-05 21:19 | disposition home or self-care (01) ==
LOC: EMS 19:07
DX: F20.9 Schizophrenia, unspecified (principal); F41.9 Anxiety disorder, unspecified; F31.9 Bipolar disorder, unspecified; F17.210 Nicotine dependence, cigarettes, uncomplicated; Z87.898 Personal history of other specified conditions; Z98.890 Other specified postprocedural states; Z91.014 Allergy to mammalian meats; Z88.8 Allergy status to other drugs, medicaments and biological substances
CPT/HCPCS: 36415; 80053; 85025; 99284; G0480

== ENCOUNTER 2021-12-08 19:29 | Inpatient (IN) | payer MEDICAID, OTHER ==
[~2021-12-08] VITALS: Ht 165.1 cm; Wt 81.9 kg
[2021-12-08 20:48] LABS: BASOPHILS % (AUTO) 0.8 % (0.0-2.0); HEMATOCRIT 35.9 % (41-53); HEMOGLOBIN 12.2 g/dL (13.5-17.5); LYMPHOCYTES # (AUTO) 2.4 K/uL (1.0-4.8); LYMPHOCYTES % (AUTO) 28.9 % (22.0-44.0); MEAN CORPUSCULAR HEMOGLOBIN 26.6 pg (26.0-34.0); MEAN CORPUSCULAR HGB CONC 34.2 G/dL (31.0-37.0); MEAN CORPUSCULAR VOLUME 78 fL (80-100); MONOCYTES # (AUTO) 0.3 K/uL (0.1-1.0); NEUTROPHILS # (AUTO) 5.3 K/uL (1.8-7.7); NEUTROPHILS % (AUTO) 65.3 % (40.0-70.0); PLATELET COUNT (AUTO) 291 K/uL (150-450); RED CELL DISTRIBUTION WIDTH 15.6 % (11.5-14.5)
[2021-12-08 20:55] LABS: ANION GAP 9 mmol/L (8-16); CALCIUM, TOTAL 8.8 mg/dL (8.8-10.5); CARBON DIOXIDE 28 mmol/L (22-29); CHLORIDE 107 mmol/L (98-107); CREATININE 1.02 mg/dL (0.60-1.30); GLOMERULAR FILTR. RATE CALC > 60 mL/min (>60); GLUCOSE,RANDOM 118 mg/dL (70-110); POTASSIUM 3.5 mmol/L (3.5-5.1); SODIUM SERUM 144 mmol/L (136-145); UREA NITROGEN, BLOOD 6 mg/dL (7-18)
[2021-12-08 21:01] LABS: ALANINE AMINOTRANSFERASE 17 U/L (12-78); ALBUMIN 3.2 g/dL (3.4-5.0); ALKALINE PHOSPHATASE 97 U/L (46-116); ASPARTATE AMINOTRANSFERASE 10 U/L (15-37); BILIRUBIN,TOTAL 0.4 mg/dL (0.1-1.0); TOTAL PROTEIN, SERUM 6.3 g/dL (6.4-8.2)
[2021-12-08 21:56] LABS: AMPHET/METH SCREEN,URINE POSITIVE (NEGATIVE); BARBITURATE SCREEN, URINE NEGATIVE (NEGATIVE); BENZODIAZEPINES SCREEN,URINE NEGATIVE (NEGATIVE); CANNABINOID SCREEN,URINE POSITIVE (NEGATIVE); COCAINE SCREEN,URINE POSITIVE (NEGATIVE); METHADONE SCREEN, URINE NEGATIVE (NEGATIVE); OPIATE SCREEN,URINE NEGATIVE (NEGATIVE)
[2021-12-08 21:57] LABS: PHENCYCLIDINE SCREEN,URINE NEGATIVE (NEGATIVE)
[2021-12-09] MEDS ORDERED: OLANZapine 5 MG RAPDIS TABLET PO ONE (09:15)
[2021-12-09] MEDS ORDERED: HALOPERIDOL 5 MG TABLET PO PRN (11:45)
[2021-12-09 12:11] LABS: COVID AG,FIA SOURCE NASAL SWAB
[2021-12-09 15:50] VITALS: BP 154/82
[2021-12-09] MEDS ORDERED: PNEUMOCOCCAL VACCINE POLYVALENT 0.5 ML VIAL [PPSV23] IM. ONE (16:00)
[2021-12-09 21:06] VITALS: BP 147/78
[2021-12-10 04:47] VITALS: BP 165/93
[2021-12-10] MEDS ORDERED: ALBUTEROL SULFATE HFA 90 MCG/PUFF 8 GM INHALER IH PRN (06:30)
[2021-12-10] MEDS ORDERED: PETROLATUM,WHITE 28 GM JELLY TP PRN (06:30)
[2021-12-10] MEDS ORDERED: GuaiFENesin/D-METHORPHAN [SUGAR-FREE] 200-20MG/10 ML SYRUP UDCUP PO PRN (06:30)
[2021-12-10] MEDS ORDERED: CloNIDine HCL 0.1 MG TABLET PO PRN (06:30)
[2021-12-10] MEDS ORDERED: MAG HYDROX/AL HYDROX/SIMETH ES 30 ML SUSPENSION UDCUP PO PRN (06:30)
[2021-12-10] MEDS ORDERED: MAGNESIUM HYDROXIDE SUSPENSION 30 ML UDCUP PO PRN (06:30)
[2021-12-10] MEDS ORDERED: NICOTINE 14 MG/24 HOUR PATCH TD PRN (06:30)
[2021-12-10] MEDS ORDERED: ACETAMINOPHEN 325 MG TABLET PO PRN (06:30)
[2021-12-10] MEDS ORDERED: ONDANSETRON HCL 4 MG TABLET PO PRN (06:30)
[2021-12-10] MEDS ORDERED: LOPERAMIDE HCL 2 MG CAPSULE PO PRN (06:30)
[2021-12-10 08:25] VITALS: BP 137/92
[2021-12-10 09:28] VITALS: BP 157/92
[2021-12-10] MEDS: ARIPiprazole 15 MG TABLET PO SCH (12:45)
[2021-12-10 16:19] VITALS: BP 111/62
[2021-12-10] MEDS: LORazepam 2 MG TABLET PO PRN (16:20)
[2021-12-10] MEDS: DIVALPROEX SODIUM 500 MG DR TABLET PO SCH (16:20)
[2021-12-11 08:14] VITALS: BP 106/71
[2021-12-11] MEDS: ARIPiprazole 15 MG TABLET PO SCH (08:37)
[2021-12-11] MEDS: DIVALPROEX SODIUM 500 MG DR TABLET PO SCH ×2 (08:38→17:00)
[2021-12-11] MEDS: LORazepam 2 MG TABLET PO PRN (08:38)
[2021-12-11 16:10] VITALS: BP 118/64
[2021-12-12 05:00] VITALS: BP 110/68
[2021-12-12 08:19] LABS: BASOPHILS % (AUTO) 0.4 % (0.0-2.0); EOSINOPHILS % (AUTO) 1.9 % (1.0-6.0); HEMATOCRIT 39.6 % (41-53); HEMOGLOBIN 13.4 g/dL (13.5-17.5); LYMPHOCYTES # (AUTO) 2.4 K/uL (1.0-4.8); LYMPHOCYTES % (AUTO) 29.5 % (22.0-44.0); MEAN CORPUSCULAR HEMOGLOBIN 26.7 pg (26.0-34.0); MEAN CORPUSCULAR VOLUME 79 fL (80-100); MONOCYTES # (AUTO) 0.5 K/uL (0.1-1.0); MONOCYTES % (AUTO) 6.4 % (2.0-9.0); NEUTROPHILS # (AUTO) 5.1 K/uL (1.8-7.7); NEUTROPHILS % (AUTO) 61.8 % (40.0-70.0); PLATELET COUNT (AUTO) 285 K/uL (150-450); RED BLOOD CELL COUNT(AUTO) 5.04 MIL/uL (4.50-5.90); RED CELL DISTRIBUTION WIDTH 15.8 % (11.5-14.5)
[2021-12-12] MEDS: DIVALPROEX SODIUM 500 MG DR TABLET PO SCH ×2 (08:32→16:18)
[2021-12-12 09:42] VITALS: BP 127/64
[2021-12-12 17:14] VITALS: BP 132/79
[2021-12-13 04:23] VITALS: BP 132/84
[2021-12-13 08:25] VITALS: BP 133/68
[2021-12-13 16:12] VITALS: BP 130/77
[2021-12-14 04:24] VITALS: BP 142/84
[2021-12-14 08:23] VITALS: BP 116/55
[2021-12-14 16:36] VITALS: BP 131/85
[2021-12-15 01:29] VITALS: BP 143/88
[2021-12-15 08:41] VITALS: BP 148/77
[2021-12-15 16:18] VITALS: BP 111/66
[2021-12-16 01:02] VITALS: BP 138/92
[2021-12-16 16:10] VITALS: BP 148/82
[2021-12-17 04:21] VITALS: BP 131/81
[2021-12-17 16:11] VITALS: BP 139/77
[2021-12-17] MEDS: LORazepam 2 MG TABLET PO PRN (16:48)
[2021-12-18 02:17] VITALS: BP 138/78
[2021-12-18 08:31] VITALS: BP 127/66
[2021-12-18 16:27] VITALS: BP 140/79
[2021-12-19 06:29] VITALS: BP 131/71
[2021-12-19] MEDS: MULTIVITAMINS WITH MINERALS, THERAPEUTIC TABLET PO SCH (08:28)
[2021-12-19 08:40] VITALS: BP 141/80
[2021-12-19 16:50] VITALS: BP 149/77
[2021-12-20 06:07] VITALS: BP 153/92
[2021-12-20 08:15] VITALS: BP 141/82
[2021-12-20] MEDS: MULTIVITAMINS WITH MINERALS, THERAPEUTIC TABLET PO SCH (08:44)
[2021-12-20 18:31] LABS: GLUCOMETER DEV NAME(LOC) POC.BV
[2021-12-20 20:14] VITALS: BP 132/79
[2021-12-21 08:09] VITALS: BP 102/53
[2021-12-21] MEDS: MULTIVITAMINS WITH MINERALS, THERAPEUTIC TABLET PO SCH (08:23)
[2021-12-21 20:08] VITALS: BP 128/76
[2021-12-22 00:06] VITALS: BP 130/77
[2021-12-22 08:30] VITALS: BP 135/88
[2021-12-22] MEDS: MULTIVITAMINS WITH MINERALS, THERAPEUTIC TABLET PO SCH (08:46)
[2021-12-22] MEDS ORDERED: ARIPiprazole LAUROXIL ER SUSPENSION 882 MG/3.2 ML SYRINGE IM SCH (09:00)
[2021-12-22 20:13] VITALS: BP 122/71
[2021-12-23 08:33] VITALS: BP 113/64
[2021-12-23] MEDS: MULTIVITAMINS WITH MINERALS, THERAPEUTIC TABLET PO SCH (09:16)
[2021-12-23 20:24] VITALS: BP 116/73
[2021-12-24 08:18] VITALS: BP 141/88
[2021-12-24] MEDS: MULTIVITAMINS WITH MINERALS, THERAPEUTIC TABLET PO SCH (08:41)
[2021-12-24 20:10] VITALS: BP 143/88
[2021-12-25 08:29] VITALS: BP 120/71
[2021-12-25] MEDS: MULTIVITAMINS WITH MINERALS, THERAPEUTIC TABLET PO SCH (09:19)
[2021-12-25 20:13] VITALS: BP 140/81
[2021-12-25] MEDS: ZOLPIDEM TARTRATE 10 MG TABLET PO PRN (23:10)
[2021-12-26 08:05] VITALS: BP 143/85
[2021-12-26] MEDS: MULTIVITAMINS WITH MINERALS, THERAPEUTIC TABLET PO SCH (08:25)
[2021-12-26 20:33] VITALS: BP 137/81
[2021-12-27 06:56] LABS: GLUCOMETER DEV NAME(LOC) POC.BV
[2021-12-27] MEDS: MULTIVITAMINS WITH MINERALS, THERAPEUTIC TABLET PO SCH (08:19)
[2021-12-27 08:21] VITALS: BP 128/69
[2021-12-27 20:13] VITALS: BP 141/82
[2021-12-28 08:05] LABS: CHOL/HDL RATIO 2.3 (4.2-7.3); FREE T4 (FREE THYROXINE) 0.89 ng/dL (0.76-1.46); THYROID STIMULATING HORMONE 1.63 uIU/mL (0.36-3.74)
[2021-12-28] MEDS: MULTIVITAMINS WITH MINERALS, THERAPEUTIC TABLET PO SCH (08:16)
[2021-12-28 09:27] VITALS: BP 121/68
[2021-12-28 20:51] VITALS: BP 142/86
[2021-12-29] MEDS: MULTIVITAMINS WITH MINERALS, THERAPEUTIC TABLET PO SCH (09:10)
[2021-12-29 09:34] VITALS: BP 135/86
[2021-12-29 20:42] VITALS: BP 137/79
[2021-12-30] MEDS: ZOLPIDEM TARTRATE 10 MG TABLET PO PRN ×2 (01:14→23:30)
[2021-12-30 08:22] VITALS: BP 124/96
[2021-12-30] MEDS: MULTIVITAMINS WITH MINERALS, THERAPEUTIC TABLET PO SCH (08:50)
[2021-12-30 20:21] VITALS: BP 144/83
[2021-12-31] MEDS: MULTIVITAMINS WITH MINERALS, THERAPEUTIC TABLET PO SCH (08:13)
[2021-12-31 08:37] VITALS: BP 146/77
[2021-12-31 21:28] VITALS: BP 127/67
[2022-01-01] MEDS: ZOLPIDEM TARTRATE 10 MG TABLET PO PRN (01:39)
[2022-01-01 08:36] VITALS: BP 143/76
[2022-01-01] MEDS: MULTIVITAMINS WITH MINERALS, THERAPEUTIC TABLET PO SCH (08:50)
[2022-01-01 20:23] VITALS: BP 118/72
[2022-01-02 01:30] VITALS: BP 126/76
[2022-01-02] MEDS: ZOLPIDEM TARTRATE 10 MG TABLET PO PRN (01:34)
[2022-01-02 08:18] VITALS: BP 126/70
[2022-01-02] MEDS: MULTIVITAMINS WITH MINERALS, THERAPEUTIC TABLET PO SCH (09:07)
[2022-01-02 20:27] VITALS: BP 132/84
[2022-01-03] MEDS: ZOLPIDEM TARTRATE 10 MG TABLET PO PRN (02:40)
[2022-01-03] MEDS: MULTIVITAMINS WITH MINERALS, THERAPEUTIC TABLET PO SCH (08:21)
[2022-01-03 09:08] VITALS: BP 153/96
[2022-01-03] MEDS ORDERED: ARIP882S2 IM (09:47)
== END 2022-01-03 10:30 | disposition home or self-care (01) | DRG 750 ==
LOC: EMS 19:29 → B3A 12-09 12:14 → B2S 12-09 14:02
PROVIDERS: ADMIT Psychiatry & Neurology Psychiatry; ATTEND Psychiatry & Neurology Psychiatry
DX: F25.0 Schizoaffective disorder, bipolar type (principal); R45.851 Suicidal ideations; Z59.00 Homelessness unspecified; D64.9 Anemia, unspecified; Z20.822 Contact with and (suspected) exposure to COVID-19; F10.10 Alcohol abuse, uncomplicated; F12.10 Cannabis abuse, uncomplicated; F14.10 Cocaine abuse, uncomplicated; F15.10 Other stimulant abuse, uncomplicated; I10 Essential (primary) hypertension; J44.9 Chronic obstructive pulmonary disease, unspecified; K21.9 Gastro-esophageal reflux disease without esophagitis; Z91.19 Patient's noncompliance with other medical treatment and regimen
CPT/HCPCS: 80053; 80061; 84439; 84443; 85025; 87081; 99285; G0480; Q9967